=== PATIENT | female | born 1935 | race Caucasian/White ===

== ENCOUNTER 2017-06-17 11:28 | Inpatient (IN) | payer MEDICARE, SELFPAY ==
[2017-06-17] VITALS (22 sets, daily range): BP systolic 122–219; BP diastolic 2–120; PULSE 71–96; RESP 14–22; TEMP 36.1–36.8; O2SAT 94–100; BMI 28.0; BMI 28.5
--- NOTE | 2017-06-17 11:38 | RAD_ITS ---
STUDY: X-RAY CHEST REASON FOR EXAM: Female, 82 years old. Chest pain. TECHNIQUE: Single frontal view of the chest. COMPARISON: None. FINDINGS: The lungs are mildly hyperexpanded. There is no demonstrated pleural abnormality. There is borderline cardiomegaly. Normal mediastinum and lisset. Normal visualized pulmonary arteries. There is atherosclerotic calcification of the aortic arch with tortuosity. Normal visualized thoracic spine. Normal visualized ribs, clavicles, and shoulders. There is no demonstrated abnormality of the visualized soft tissue structures of the upper abdomen. RAD/Chest 1 View (Portable) IMPRESSION: Borderline cardiomegaly with hyperexpansion. No acute pathology. Electronically Signed: Bear Watson MD at 12:10 EDT , Service support ,
--- NOTE | 2017-06-17 11:38 | EKG12_ITS ---
Test Reason : STEMI Blood Pressure : / mmHG Vent. Rate : 070 BPM Atrial Rate : 070 BPM P-R Int : 158 ms QRS Dur : 078 ms QT Int : 390 ms P-R-T Axes : 082 024 098 degrees QTc Int : 421 ms Sinus rhythm with Premature atrial complexes Inferior infarct , age undetermined Abnormal ECG When compared with ECG of 17-JUN-2017 11:33, MANUAL COMPARISON REQUIRED, DATA IS UNCONFIRMED Confirmed by ALEJANDRA BRUNER, ARJUN ([id number]), industrial editor MOLLY KELLY ([id number] on 06/20/2017 1:36:57 PM Referred By: Nicki Diane Confirmed By:ARJUN ROBERTS MD
[2017-06-17] MEDS: Aspirin 81 MG TAB.CHEW 324 MG PO (11:43)
[2017-06-17] MEDS: TICAGRELOR 90 MG TABLET 180 MG PO (11:43)
[2017-06-17] MEDS: Heparin Injection 5,000 UNITS/ML Syringe 4000 UNITS IV (11:43)
[2017-06-17] MEDS: 0.9% Normal Saline 1,000 ML 150 ML IV (11:44)
--- NOTE | 2017-06-17 11:45 | ED.VISSUMM ---
- ER Visit Summary Date of Service: 06/17/17 Chief Complaint: Chest pain History of Present Illness: The patient is a 82 F who reports onset of chest pain last evening during the night. She describes it as substernal and in her back. She does not feel short of breath. She reports a history of hypertension and diabetes. Patient does admit to noncompliance with her medications. She denies prior heart attack, cath, or cardiac stents. Physical Examination: Vital signs are significant for blood pressure 170/103, otherwise unremarkable. Patient sitting upright in bed no acute distress. Head and neck examination is unremarkable. Heart is regular rate and rhythm. Lung sounds are clear. Abdomen is soft, obese, nontender. Extremity examination reveals strong distal pulses throughout. Test Results: EKG obtained upon arrival reveals acute ST elevation AR in the inferior leads with reciprocal changes in 1 and aVL. STEMI team was called at that time. CBC and chemistry studies ultimately return with a glucose of 168. She has a creatinine 1.10. Troponin is 0.37. Total chest x-ray reveals borderline cardiomegaly. Emergency Department Course and Treatment: STEMI team was called as soon as EKG was obtained. Patient was given aspirin, Brilinta, and heparin. Risks of the cardiac cath and possible stent placement were discussed with the patient and she agreed to proceed. Patient's current condition and anticipated procedure was also discussed with family members and questions were answered. Patient was discussed with Dr. Diane and taken to the cardiac Maintenance Chief. Treatment Plan: [] Disposition: Admit Impression: Acute inferior ST elevation AR This note was generated with [employer] dictation software. It may contain incorrect words, spelling, and punctuation that were not noted in review of the chart prior to signing ED Disposition - Plan for ED Patient: Disposition: Acute Care Hospital [facility] Chief Complaint: Chest Pain
[2017-06-17 11:48] LABS: Absolute Lymphocyte Count 2.49 X10^3/ul (0.83-4.51); Absolute Neutrophil Count 6.2 X10^3/uL (2.0-7.7); Basophil# 0.04 X10^3/uL; Basophil% 0.4 % (0-1); Eosinophil# 0.14 X10^3/uL; Eosinophils% 1.4 % (0-5); Hematocrit 45.3 % (37-47); Lymphocyte # 2.49 X10^3/ul (4.0); Lymphocyte % 25.7 % (19-41); Mean Corp Hgb Conc 33.1 g/gl (32-36); Mean Corpuscular Hgb 29.8 pg (27.0-32.0); Mean Corpuscular Volume 90.1 fL (81-99); Mean Platelet Vol. 9.7 fl (6.2-12.0); Monocyte# 0.78 X10^3/uL; Monocyte% 8.1 % (0-10); Neutrophil # 6.21 X10^3/uL (2.7-7.7); Neutrophil % 64.2 % (47-70); Platelet Count 222 K/mm3 (150-450); RBC Distribution Width CV 13.7 % (11.6-14.6); RBC Distribution Width SD 44.9 fl (35.1-43.9); Red Blood Count 5.03 M/mm3 (4.2-5.4); White Blood Count 9.7 K/mm3 (4.4-11.0)
[2017-06-17 11:51] LABS: POSITIVE COUNT NO; POSITIVE DIFFERENTIAL NO; POSITIVE MORPHOLOGY NO
[2017-06-17 12:04] LABS: Anion Gap 9 (5-15); BUN 20 mg/dL (7-18); BUN/Creat Ratio 18.2 RATIO (10-20); Chloride 104 mmol/L (98-107); EST Glomerular Filtration Rate 51 mL/min (>60); Est Glom Filt Rate - Afr Amer 61 mL/min (>60); Estimated Creatinine Clearance 32.26 ml/min; Glucose 168 mg/dL (74-106); Sodium Level 140 mmol/L (136-145)
--- NOTE | 2017-06-17 15:44 | ECHOCS_ITS ---
Reason For Study: STEMI Procedure This was a 2D Doppler, Color Flow transthoracic echocardiogram. The study was technically difficult. Pt scanned supine due to recent cath. Exam performed portable in ICU/CCU. Left Ventricle Normal LV size. Mild concentric left ventricular hypertrophy. Left ventricular systolic function is normal. The estimated ejection fraction is 65 %. Mild segmental systolic dysfunction (see wall motion). Transmitral diastolic flow velocities suggest mild (stage 1) diastolic dysfunction (reversed pattern). Infero-Basal: Hypokinetic. The rest of the wall segments are normal. Mitral Valve There is mild mitral annular calcification. Tricuspid Valve Normal tricuspid valve. Unable to estimate RV systolic pressure/pulmonary artery pressure due to technically difficult study. Aortic Valve Trisinus/trileaflet aortic valve. Mild (1+) eccentric aortic valve insufficiency. Pulmonic Valve The pulmonic valve is not well visualized. Great Vessels Calcified aortic root. The pulmonary artery is normal size. Normal inferior vena cava. Pericardium/Pleural No pericardial effusion. Medication Definity0.4ml given slow IV push to enhance endocardial definition. MMode/2D Measurements & Calculations LVIDd: 3.9 cm IVSd: 1.2 cm Ao root diam: 2.8 cm LVIDs: 2.3 cm LVPWd: 1.2 cm LA dimension: 2.7 cm FS: 40.9 % LAV(MOD-bp): 30.5 ml LA A4 area: 11.7 cm2 RA A4 area: 10.7 cm2 LAV(MOD-bp) Indexed: 18.0 ml/m2 LAV(MOD-sp2): 38.2 ml LAV(MOD-sp4): 22.5 ml Doppler Measurements & Calculations MV E max everton: 72.1 cm/sec Lat Peak E' Everton: 4.6 cm/sec Med Peak E' Everton: 4.4 cm/sec MV A max everton: 94.2 cm/sec E/E' lat: 15.5 E/E' med: 16.4 MV E/A: 0.76 Ao V2 max: 172.8 cm/sec LV V1 max: 112.8 cm/sec PA V2 max: 80.9 cm/sec Ao max P.9 mmHg LV V1 max P.1 mmHg Ao V2 mean: 111.8 cm/sec Ao mean P.7 mmHg Ao V2 VTI: 36.0 cm Interpretation Summary Normal LV size. Mild concentric left ventricular hypertrophy. Left ventricular systolic function is normal. The estimated ejection fraction is 65 %. Infero-Basal: Hypokinetic There is mild mitral annular calcification. Contrast injection was performed. Ordering Physician: Nicki Diane Referring Physician: Nicki Diane Performed By: Sugar Cadena RDCS, RVT
--- NOTE | 2017-06-17 15:45 | EKG12_ITS ---
Test Reason : CP Blood Pressure : / mmHG Vent. Rate : 068 BPM Atrial Rate : 068 BPM P-R Int : 000 ms QRS Dur : 080 ms QT Int : 392 ms P-R-T Axes : 000 023 104 degrees QTc Int : 416 ms Atrial fibrillation Inferior infarct , possibly acute T wave abnormality, consider lateral ischemia ACUTE SD / STEMI Consider right ventricular involvement in acute inferior infarct Abnormal ECG Confirmed by ALEJANDRA BRUNER, ARJUN ([id number]), loan expeditor MOLLY KELLY ([id number]) on 06/19/2017 1:41:09 PM Referred By: Nicki Diane Confirmed By:ARJUN ROBERTS MD
--- NOTE | 2017-06-17 15:51 | CON.PCM_ITS ---
Problem List (1) ST elevation (STEMI) myocardial infarction Status: Acute Reason for Consult Date of Consultation: 06/17/17 History of Present Illness: The patient is a 82 year old F with past medical history significant for diabetes mellitus, hypertension and dyslipidemia. She is noncompliant with her medications and does not take them. She presented to the emergency room with complaints of chest pain that started at about 1:00 in the morning. In the emergency room, an EKG was done. It shows changes consistent with an acute inferior myocardial infarction. Subsequently a STEMI alert was called Patient denies any previous history of coronary artery disease. Denies any previous history of angina. [] Past Medical History Allergies/Adverse Reactions: Allergies No Known Allergies Allergy (Verified 06/17/17 11:33) Home Medications: Ambulatory Orders Medication Instructions Recorded Allopurinol [Zyloprim] 300 mg PO DAILY PRN 06/17/17 Colesevelam HCl [Welchol] 3.75 gm PO DAILY 06/17/17 Liraglutide [Victoza] 1.8 mg SQ DAILY 06/17/17 Lisinopril [Zestril] 10 mg PO DAILY 06/17/17 Metformin(XR) [Glucophage Xr] 500 mg PO DAILY 06/17/17 Smoking Status: Never smoker Review of Systems - Review of Systems General: Denies: Fever, Fatigue, Anorexia, Weight Loss HEENT: Denies: Head Aches Cardiovascular: Reports: Chest Discomfort at Rest. Denies: Orthopnea, PND, Peripheral Edema Gastrointestinal: Denies: Abdominal Discomfort, Jaundice, Nausea, Hematemesis, Melena Neurological: Denies: History of TIA, History of CVA Endocrine: Denies: Heat Intolerance, Cold Intolerance Hematologic/ Lymphatic: Denies: Easy Brusing, Easy Bleeding Subjectve: Appeared comfortable. No apparent distress Objective: Vital Signs Temp Pulse Resp BP Pulse Ox 96.9 F L 88 17 219/97 H 97 06/17/17 11:29 06/17/17 11:45 06/17/17 11:45 06/17/17 11:45 06/17/17 11:45 General: Awake, Alert, Oriented x 3 HEENT: Atraumatic, Normocephalic Oral: Moist Mucosa Neck: Supple Lungs: Clear to auscultation Cardiovascular: Regular Rhythm, Normal S1, Normal S2 Abdomen: Bowel Sounds Present, Soft Extremities: No edema Neurological: No Focal Motor or Sensory Deficit Psych/Mental Status: Appropriate Rhythm: Normal sinus rhythm. EKG: EKG showed changes consistent with acute inferior myocardial infarction with ST elevations in inferior leads with reciprocal changes in high lateral leads ECHO: Stress Test: Cardiac Cath: PCI: CT Surgery: Holter monitor: EPS: PPM: CXR: Chest CT Scan: Assessment/Plan 1. Acute inferior myocardial infarction. Patient was advised emergent coronary angiography with possible revascularization. After obtaining informed consent, the procedure was performed. She was noted to have total occlusion of the mid right coronary artery. Heavily calcified. Also about 95% occlusion was noted in the mid left anterior descending artery. Successful percutaneous revascularization was performed. Because of the patient's anatomy, the procedure was noted to be technically very difficult. Multiple guides were tried for support. We were unable to cross with drug-eluting stents on account of her vessel tortuosity and extreme calcification. Therefore for short bare- metal stents were used which were all overlapped. Excellent results were noted with restorationist of NITHIN-3 flow 2. Patient has severe residual lesion in her mid left anterior descending artery. Heavily calcified. Also has a lesion in the obtuse marginal branch. Consider staged intervention to the LAD versus coronary artery bypass graft surgery in a staged manner. I believe she will need to have rotablation to prepare the lesion in case percutaneous intervention is opted for 3. Aspirin lifelong, Brilinta treatment for at least 4 weeks 4. Start on low-dose beta blockers, ALBERTINA inhibitors. Also start on statins. Check lipid profile 5. Diabetes management as per internal medicine 6. Patient reports noncompliance with her medications. Counseled regarding the importance of compliance with medications 7. Check a echocardiogram to evaluate left ventricular systolic function
[2017-06-17 16:35] LABS: ACT Activated Clotting Time 406 sec (74-137)
[2017-06-17 16:35] LABS: ACT Activated Clotting Time 191 sec (74-137)
[2017-06-17] MEDS: 0.9% Normal Saline 1,000 ML 100 ML IV (16:35)
--- NOTE | 2017-06-17 18:37 | PCM.HP.STD ---
Problem List (1) ST elevation (STEMI) myocardial infarction Status: Acute Qualifiers: Involved coronary artery: right coronary artery Qualified Code(s): I21.11 - ST elevation (STEMI) myocardial infarction involving right coronary artery History of Present Illness Date of Admission: 06/17/17 Chief Complaint: ST elevation CT The patient is a 82 year old F who was seen in the emergency room at [facility] with chief complaint of precordial substernal chest pressure which actually started in her mid back area and spread to her precordial substernal chest area approximately 3 AM this morning. Patient denied any radiation of the discomfort into her neck or down her arm, she did get diaphoretic and nauseated. Patient had no complaints of any shortness of breath. Patient was sleeping when the discomfort woke her up and it persisted and she came to the emergency room for evaluation. On admission to the ER, EKG revealed non-ST elevation CT involving the inferior wall leads, she was taken emergently to the Acetylene Burner and after several hours, 4 stents were put in the right coronary artery. There was also occlusive disease noted in the LAD as well as the obtuse marginal branch. These areas were not able be addressed with intervention. Patient was admitted to ICU for acute STEMI. 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 Lives: Spouse/ Significant Other Smoking Status: Never smoker Tobacco Use: Non-smoker Alcohol: None Drugs: None - *Family History Maternal History Items: Cancer - Breast cancer Paternal History Items: No pertinent history Review of Systems Constitutional: Denies: Anorexia, Chills, Fever, Night Sweats, Malaise, Weakness, Weight Change, Fatigue Eyes: Denies: Blurred vision, Cataracts, Conjunctivae Inflammation, Double vision, Drainage, Eyelid Inflammation HEENT: Denies: Difficulty Hearing, Difficulty Swallowing, Dysphasia, Ear Pain, Eye Pain, Head Aches, Hearing Changes, Nasal bleeding, Nasal Congestion Cardiovascular: Reports: Chest Pain, Chest Pressure, Chest Tightness. Denies: Claudication, Edema, Heaviness, Orthopnea, Palpitations, Paroxysmal Noc. Dyspnea, Syncope Respiratory: Denies: Cough, Hemoptysis, Pleuritic Pain, Shortness of Breath, Shortness of breath at rest, Shortness of breath upon exertion, Sputum production, Wheezing Gastrointestinal: Reports: Nausea. Denies: Abdominal Pain, Constipation, Diarrhea, Hematemesis, Hematochezia, Melena, Vomiting Genitourinary: Denies: Dysuria, Frequency, Hematuria, Hesitancy, Incontinence, Nocturia, Urgency Gynecological: Denies: Breast symptoms Musculoskeletal: Denies: Back Pain, Foot Pain, Hand Pain, Joint Pain, Joint stiffness, Joint swelling, Joint Tenderness, Leg Pain Skin: Denies: Dryness, Jaundice, Lesions, Pruritis, Rash Neurological: Denies: Balance problems, Blurred vision, Double vision, Slurred speech, Difficulty swallowing, Focal weakness, Headaches, Incoordination, Numbness, Tingling Psychiatric: Denies: Anxiety, Depression, Homicidal Ideations, Suicidal Ideations Endocrine: Denies: Change in Body Habitus, Heat/ Cold Intolerance, Polydipsia, Polyuria Hematologic/ Lymphatic: Denies: Adenopathy, Anemia, Easy Bruising, Easy Bleeding, Petechiae, Purpura VTE Information - Inpt Only VTE Present on Admission: No VTE Mechan Device Prophylaxis: None VTE Pharm Prophylaxis ordered?: No Reason prophylaxis not ordered:: Medical Contraindication Patient Problems: Active and Suspected Problems ST elevation (STEMI) myocardial infarction (Acute) - Physical Exam General: Alert, Oriented x3, Cooperative, No apparent distress, Well developed, Well nourished HEENT: Atraumatic, PERRLA, EOMI, Normocephalic Oral: Moist Mucosa Neck: Supple, No JVD, Negative Carotid Bruits, No Nuchal Rigidity, Trachea Midline, Thyroid Normal Size and Texture Lungs: Clear to auscultation, Normal air movement, No rhonchi, No wheeze, No rales Cardiovascular: Regular rate, Regular Rhythm, Normal S1, Normal S2, No murmurs, No Ectopic Activity, PMI Normal, No rub noted, No Gallop Abdomen: Bowel Sounds Present, Soft, Non Tender, Non-Distended, No hernias noted Extremities: No clubbing, No cyanosis, No edema, Capillary Refill Less than 3 Seconds Skin: No rashes, No breakdown Musculoskeletal: No Tenderness to Palpation of Joints or Extremities Neurological: Cranial nerves II-XII grossly intact, Neuro grossly intact, Muscle tone normal, Sensory exam intact to light touch and pain, Coordination normal Psych/Mental Status: Normal Affect, Appropriate, Alert and oriented to time, place, person, mood and affect Vital Signs Temp Pulse Resp BP Pulse Ox 96.9 F L 83 17 219/97 H 100 06/17/17 11:29 06/17/17 16:20 06/17/17 11:45 06/17/17 11:45 06/17/17 17:18 Oxygen Flow Rate (L/min) 2 Oxygen Delivery Method Nasal Cannula Weight: 70.7 kg Body Mass Index (BMI) 28.5 Laboratory Tests Past 24 Hrs 06/17/17 06/17/17 06/17/17 12:07 15:11 16:23 Activated Clotting Time 191 H 406 H MRSA (PCR) Pending Assessment/Plan Active and Suspected Problems ST elevation (STEMI) myocardial infarction (Acute) #[address] involving the inferior wall-patient was admitted ICU, medications were administered per cardiology orders, I placed patient on sliding scale insulin and her other medications will be held at this time-according to the patient's , she was not taking her medications as directed and the main medication she was taking was Victoza. 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
--- NOTE | 2017-06-17 18:47 | HP.PCM_ITS ---
Problem List (1) ST elevation (STEMI) myocardial infarction Status: Acute Qualifiers: Involved coronary artery: right coronary artery Qualified Code(s): I21.11 - ST elevation (STEMI) myocardial infarction involving right coronary artery History of Present Illness Date of Admission: 06/17/17 Chief Complaint: ST elevation RI The patient is a 82 year old F who was seen in the emergency room at [facility] with chief complaint of precordial substernal chest pressure which actually started in her mid back area and spread to her precordial substernal chest area approximately 3 AM this morning. Patient denied any radiation of the discomfort into her neck or down her arm, she did get diaphoretic and nauseated. Patient had no complaints of any shortness of breath. Patient was sleeping when the discomfort woke her up and it persisted and she came to the emergency room for evaluation. On admission to the ER, EKG revealed non-ST elevation RI involving the inferior wall leads, she was taken emergently to the Access Consultant and after several hours, 4 stents were put in the right coronary artery. There was also occlusive disease noted in the LAD as well as the obtuse marginal branch. These areas were not able be addressed with intervention. Patient was admitted to ICU for acute STEMI. 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 Lives: Spouse/ Significant Other Smoking Status: Never smoker Tobacco Use: Non-smoker Alcohol: None Drugs: None - *Family History Maternal History Items: Cancer - Breast cancer Paternal History Items: No pertinent history Review of Systems Constitutional: Denies: Anorexia, Chills, Fever, Night Sweats, Malaise, Weakness , Weight Change, Fatigue Eyes: Denies: Blurred vision, Cataracts, Conjunctivae Inflammation, Double vision, Drainage, Eyelid Inflammation HEENT: Denies: Difficulty Hearing, Difficulty Swallowing, Dysphasia, Ear Pain, Eye Pain, Head Aches, Hearing Changes, Nasal bleeding, Nasal Congestion Cardiovascular: Reports: Chest Pain, Chest Pressure, Chest Tightness. Denies: Claudication, Edema, Heaviness, Orthopnea, Palpitations, Paroxysmal Noc. Dyspnea , Syncope Respiratory: Denies: Cough, Hemoptysis, Pleuritic Pain, Shortness of Breath, Shortness of breath at rest, Shortness of breath upon exertion, Sputum production, Wheezing Gastrointestinal: Reports: Nausea. Denies: Abdominal Pain, Constipation, Diarrhea, Hematemesis, Hematochezia, Melena, Vomiting Genitourinary: Denies: Dysuria, Frequency, Hematuria, Hesitancy, Incontinence, Nocturia, Urgency Gynecological: Denies: Breast symptoms Musculoskeletal: Denies: Back Pain, Foot Pain, Hand Pain, Joint Pain, Joint stiffness, Joint swelling, Joint Tenderness, Leg Pain Skin: Denies: Dryness, Jaundice, Lesions, Pruritis, Rash Neurological: Denies: Balance problems, Blurred vision, Double vision, Slurred speech, Difficulty swallowing, Focal weakness, Headaches, Incoordination, Numbness, Tingling Psychiatric: Denies: Anxiety, Depression, Homicidal Ideations, Suicidal Ideations Endocrine: Denies: Change in Body Habitus, Heat/ Cold Intolerance, Polydipsia, Polyuria Hematologic/ Lymphatic: Denies: Adenopathy, Anemia, Easy Bruising, Easy Bleeding , Petechiae, Purpura VTE Information - Inpt Only VTE Present on Admission: No VTE Mechan Device Prophylaxis: None VTE Pharm Prophylaxis ordered?: No Reason prophylaxis not ordered:: Medical Contraindication Patient Problems: Active and Suspected Problems ST elevation (STEMI) myocardial infarction (Acute) - Physical Exam General: Alert, Oriented x3, Cooperative, No apparent distress, Well developed, Well nourished HEENT: Atraumatic, PERRLA, EOMI, Normocephalic Oral: Moist Mucosa Neck: Supple, No JVD, Negative Carotid Bruits, No Nuchal Rigidity, Trachea Midline, Thyroid Normal Size and Texture Lungs: Clear to auscultation, Normal air movement, No rhonchi, No wheeze, No rales Cardiovascular: Regular rate, Regular Rhythm, Normal S1, Normal S2, No murmurs, No Ectopic Activity, PMI Normal, No rub noted, No Gallop Abdomen: Bowel Sounds Present, Soft, Non Tender, Non-Distended, No hernias noted Extremities: No clubbing, No cyanosis, No edema, Capillary Refill Less than 3 Seconds Skin: No rashes, No breakdown Musculoskeletal: No Tenderness to Palpation of Joints or Extremities Neurological: Cranial nerves II-XII grossly intact, Neuro grossly intact, Muscle tone normal, Sensory exam intact to light touch and pain, Coordination normal Psych/Mental Status: Normal Affect, Appropriate, Alert and oriented to time, place, person, mood and affect Vital Signs Temp Pulse Resp BP Pulse Ox 96.9 F L 83 17 219/97 H 100 06/17/17 11:29 06/17/17 16:20 06/17/17 11:45 06/17/17 11:45 06/17/17 17:18 Oxygen Flow Rate (L/min) 2 Oxygen Delivery Method Nasal Cannula Weight: 70.7 kg Body Mass Index (BMI) 28.5 Laboratory Tests Past 24 Hrs 06/17/17 06/17/17 06/17/17 12:07 15:11 16:23 Activated Clotting Time 191 H 406 H MRSA (PCR) Pending Assessment/Plan Active and Suspected Problems ST elevation (STEMI) myocardial infarction (Acute) #[address] elevation RI involving the inferior wall-patient was admitted ICU, medications were administered per cardiology orders, I placed patient on sliding scale insulin and her other medications will be held at this time- according to the patient's , she was not taking her medications as directed and the main medication she was taking was Victoza. 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
[2017-06-17 19:13] LABS: M R Staph aureus DNA By PCR Negative (Negative); Probe Check PASS; Specimen Processing Control PASS
[2017-06-17 21:20] LABS: Bedside Glucose 253 mg/dL (70-110)
[2017-06-17] MEDS: Carvedilol 3.125 MG TABLET PO (21:20)
[2017-06-17] MEDS: TICAGRELOR 90 MG TABLET PO (21:21)
[2017-06-17] MEDS: Atorvastatin Calcium 40 MG Tablet PO (21:21)
[2017-06-18] VITALS (26 sets, daily range): BP systolic 113–155; BP diastolic 51–93; PULSE 71–91; RESP 9–20; TEMP 36.6–37; O2SAT 90–100
[2017-06-18 04:30] LABS: Hematocrit 34.3 % (37-47); Hemoglobin 11.6 g/dl (12.0-15.0); Mean Corp Hgb Conc 33.8 g/gl (32-36); Mean Corpuscular Hgb 30.4 pg (27.0-32.0); Mean Corpuscular Volume 89.8 fL (81-99); Mean Platelet Vol. 9.9 fl (6.2-12.0); Platelet Count 225 K/mm3 (150-450); RBC Distribution Width CV 13.6 % (11.6-14.6); RBC Distribution Width SD 43.7 fl (35.1-43.9); Red Blood Count 3.82 M/mm3 (4.2-5.4); White Blood Count 11.9 K/mm3 (4.4-11.0)
[2017-06-18 04:50] LABS: Scan Indicated on CBC? Y/N NO
[2017-06-18 05:37] LABS: AST(SGOT) 49 U/L (15-37); Alanine Aminotransfer ALT/SGPT 28 U/L (13-56); Albumin, Serum 3.1 g/dL (3.2-5.0); Alkaline Phosphatase 67 U/L (45-117); Anion Gap 8 (5-15); BUN 20 mg/dL (7-18); BUN/Creat Ratio 20.2 RATIO (10-20); Calcium,Total 8.3 mg/dL (8.5-10.1); Chloride 106 mmol/L (98-107); Cholesterol 162 mg/dL (200); Creatinine, Serum 0.99 mg/dL (0.55-1.02); EST Glomerular Filtration Rate 57 mL/min (>60); Est Glom Filt Rate - Afr Amer 69 mL/min (>60); Estimated Creatinine Clearance 35.85 ml/min; Globulin 3.1 g/dL (2.2-4.2); Glucose 159 mg/dL (74-106); High Density Lipoprotein 34 mg/dL; Potassium 3.6 mmol/L (3.5-5.1); Protein, Total 6.2 g/dL (6.4-8.2); Sodium Level 139 mmol/L (136-145); Triglycerides 125 mg/dL; Very Low Density Lipoprotein 25 mg/dL (5-40)
[2017-06-18 06:46] LABS: Bedside Glucose 175 mg/dL (70-110)
[2017-06-18] MEDS: TICAGRELOR 90 MG TABLET PO ×2 (08:39→22:19)
[2017-06-18] MEDS: Aspirin E.C. 81 MG Tablet PO (08:39)
[2017-06-18] MEDS: Carvedilol 3.125 MG TABLET PO ×2 (08:39→11:54)
--- NOTE | 2017-06-18 09:49 | PN.CARD_ITS ---
Subjectve: The patient was seen and evaluated and appears to be doing quite well pain-free sitting in a chair. Objective: Vital Signs Temp Pulse Resp BP Pulse Ox 98.3 F 83 18 153/67 H 96 06/18/17 07:56 06/18/17 09:00 06/18/17 09:00 06/18/17 09:00 06/18/17 09:00 Oxygen Flow Rate (L/min) 2 Oxygen Delivery Method Room Air Weight: 157 lb 10.088 oz Body Mass Index (BMI) 28.5 Intake and Output for Last 24 Hours 06/16/17 06/17/17 06/18/17 23:59 23:59 23:59 Intake Total 1353.6 / 1353.6 150 / 150 Output Total 1175 / 1175 475 / 475 Balance 178.6 / 178.6 -325 / -325 General: Awake, Alert, Oriented x 3 HEENT: PERRL, EOMI, Sclera Non Icteric Neck: Supple, Good ROM, No Lymph Node Enlargement Lungs: Clear to auscultation Cardiovascular: Regular Rhythm, Normal S1, Normal S2, No Murmurs, No Rubs, No Gallops Vascular: No Carotid Bruits, Normal Femoral Pulses, Normal Radial Pulses, Normal Dorsalis Pedal Pulse, Normal Posterior Tibial Pulses Abdomen: Bowel Sounds Present, Soft, Non Tender, No HSM, No Organomegaly Extremities: No Cyanosis, No Clubbing, No edema Neurological: No Focal Motor or Sensory Deficit 06/18/17 04:20: WBC 11.9 H, RBC 3.82 L, Hgb 11.6 L, Hct 34.3 L, MCV 89.8, MCH 30.4, MCHC 33.8, RDW 13.6, RDW Differential 43.7, Plt Count 225, MPV 9.9 06/18/17 04:20: Sodium 139, Potassium 3.6, Chloride 106, Carbon Dioxide 25.0, Anion Gap 8, BUN 20 H, Creatinine 0.99, Est GFR (MDRD) Af Amer 69, Est GFR (MDRD ) Non-Af 57 L, BUN/Creatinine Ratio 20.2 H, Glucose 159 H, Calcium 8.3 L, Total Bilirubin 0.50, Triglycerides 125, Cholesterol 162, LDL Cholesterol 103, VLDL Cholesterol 25, HDL Cholesterol 34 L Rhythm: EKG: ECHO: Stress Test: Cardiac Cath: PCI: CT Surgery: Holter monitor: EPS: PPM: CXR: Chest CT Scan: Medical Necessity - Tobacco Use Smoking Status: Never smoker Tobacco Use: Non-smoker Assessment/Plan 1. Day 1 status post acute inferior wall myocardial infarction. Patient successfully underwent angioplasty and bare-metal extensive stenting of the right coronary artery with NITHIN grade III flow. EKG appears to be much better with evolutionary changes this morning. Hemoglobin fell by more than 3 g but there is no evidence of bleeding. We will recheck in a.m. as I suspect some of the fall is from overhydration. Groin site and radial entry site all appear to be intact. Creatinine remains stable. The plan will be to keep the patient in the intensive care unit at least one more night. Aspirin Brilinta statin and beta-kartik will be continued. Above discussed with patient. Echocardiogram performed yesterday demonstrated preserved left ventricular systolic function. 2. Hypertension. Blood pressure appears to be elevated today would increase the beta-kartik to Coreg 6.25 mg twice a day in addition to the lisinopril. 3. Hyperlipidemia We will continue high intensity statin. Thank you for allowing me to participate in the care of your patient. Please don't hesitate to call if any issues arise
--- NOTE | 2017-06-18 09:50 | CASEMGMT ---
See attached RN CM assessment. patient non compliant with medications due to cost of medications. 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 States she can't afford a lot of medications. Being started on Brilinta. Attempted to call her pharmacy for a chacko on brilinta however they are closed today. Her insurance card is not scanned and she states her insurance card is in her purse which family took home. [employer] has a on-line form where you can check a copay however without her insurance RX bin and group--cannot run it. Printed multiple of her medications which are on the $4 list at [facility]. Patient needs further instruction on resources, chacko comparing and talking to [employer] for assistance for medications. Patient states that a nurse from [facility] visits them 1x a year and it is actually due. States she called to stop by a couple weeks ago however they weren't able to. Will alert case hardener for follow up tomorrow when can call pharmacy for co-pay on brilinta and regarding her insurance coverage. Angelica Aggarwal RN, CCM.
[2017-06-18 11:16] LABS: Bedside Glucose 225 mg/dL (70-110)
--- NOTE | 2017-06-18 12:11 | PCM.PROGNOTE ---
Patient Problems: Active and Suspected Problems ST elevation (STEMI) myocardial infarction (Acute) Subjective: Patient was seen and examined today in ICU, she voices no complaints of chest pain or shortness of breath. Blood pressure remains elevated, I increased her lisinopril to 10 mg daily. - Physical Exam General: Alert, Oriented x3, Cooperative, No apparent distress, Well developed, Well nourished HEENT: Atraumatic, PERRLA, EOMI, Normocephalic Oral: Moist Mucosa Neck: Supple, No JVD, No Nuchal Rigidity, Trachea Midline, Thyroid Normal Size and Texture Lungs: Clear to auscultation, Normal air movement, No rhonchi, No wheeze, No rales Cardiovascular: Regular rate, Regular Rhythm, Normal S1, Normal S2, No murmurs, No Ectopic Activity, PMI Normal, No rub noted, No Gallop Abdomen: Bowel Sounds Present, Soft, Non Tender, Non-Distended, No hernias noted Extremities: No clubbing, No cyanosis, No edema, Capillary Refill Less than 3 Seconds Skin: No rashes, No breakdown Musculoskeletal: No Tenderness to Palpation of Joints or Extremities Neurological: Cranial nerves II-XII grossly intact, Neuro grossly intact, Muscle tone normal, Sensory exam intact to light touch and pain Psych/Mental Status: Normal Affect, Appropriate, Alert and oriented to time, place, person, mood and affect Vital Signs Temp Pulse Resp BP Pulse Ox 98.3 F 71 16 143/66 H 97 06/18/17 07:56 06/18/17 11:00 06/18/17 11:00 06/18/17 11:00 06/18/17 11:00 Oxygen Flow Rate (L/min) 2 Oxygen Delivery Method Room Air Weight: 71.5 kg Body Mass Index (BMI) 28.5 Intake and Output for Last 24 Hours 06/16/17 06/17/17 06/18/17 23:59 23:59 23:59 Intake Total 1353.6 / 1353.6 500 / 500 Output Total 1175 / 1175 925 / 925 Balance 178.6 / 178.6 -425 / -425 Laboratory Tests Past 24 Hrs 06/17/17 06/17/17 06/17/17 12:07 15:11 16:23 WBC RBC Hgb Hct MCV MCH MCHC RDW RDW Differential Plt Count MPV Activated Clotting Time 191 H 406 H Sodium Potassium Chloride Carbon Dioxide Anion Gap BUN Creatinine Estim Creat Clear Calc Est GFR (MDRD) Af Amer Est GFR (MDRD) Non-Af BUN/Creatinine Ratio Glucose Calcium Total Bilirubin AST ALT Alkaline Phosphatase Total Protein Albumin Globulin Albumin/Globulin Ratio Triglycerides Cholesterol LDL Cholesterol VLDL Cholesterol HDL Cholesterol MRSA (PCR) Negative 06/18/17 06/18/17 04:20 04:20 WBC 11.9 H RBC 3.82 L Hgb 11.6 L Hct 34.3 L MCV 89.8 MCH 30.4 MCHC 33.8 RDW 13.6 RDW Differential 43.7 Plt Count 225 MPV 9.9 Activated Clotting Time Sodium 139 Potassium 3.6 Chloride 106 Carbon Dioxide 25.0 Anion Gap 8 BUN 20 H Creatinine 0.99 Estim Creat Clear Calc 35.85 Est GFR (MDRD) Af Amer 69 Est GFR (MDRD) Non-Af 57 L BUN/Creatinine Ratio 20.2 H Glucose 159 H Calcium 8.3 L Total Bilirubin 0.50 AST 49 H ALT 28 Alkaline Phosphatase 67 Total Protein 6.2 L Albumin 3.1 L Globulin 3.1 Albumin/Globulin Ratio 1.0 Triglycerides 125 Cholesterol 162 LDL Cholesterol 103 VLDL Cholesterol 25 HDL Cholesterol 34 L MRSA (PCR) POC Glucose 06/18/17 06/18/17 06/17/17 11:12 06:35 21:14 POC Glucose 225 H 175 H 253 H Medical Necessity - Tobacco Use Smoking Status: Never smoker Tobacco Use: Non-smoker Assessment/Plan Active and Suspected Problems ST elevation (STEMI) myocardial infarction (Acute) #[address] elevation [place] involving the inferior wall-continue treatment per cardiology #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
--- NOTE | 2017-06-18 15:45 | EKG12_ITS ---
Test Reason : AM EKG Blood Pressure : / mmHG Vent. Rate : 079 BPM Atrial Rate : 079 BPM P-R Int : 164 ms QRS Dur : 082 ms QT Int : 380 ms P-R-T Axes : 078 -11 110 degrees QTc Int : 435 ms Normal sinus rhythm Inferior infarct , age undetermined ST & T wave abnormality, consider lateral ischemia Abnormal ECG When compared with ECG of 17-JUN-2017 16:12, MANUAL COMPARISON REQUIRED, DATA IS UNCONFIRMED Confirmed by ALEJANDRA BRUNER, ARJUN ([id number]), publication editor MOLLY KELLY ([id number]) on 06/20/2017 1:37:14 PM Referred By: Nicki Diane Confirmed By:ARJUN ROBERTS MD
[2017-06-18 17:25] LABS: Bedside Glucose 153 mg/dL (70-110)
[2017-06-18] MEDS: Lisinopril 5 MG Tablet PO (17:50)
[2017-06-18] MEDS: Atorvastatin Calcium 40 MG Tablet PO (22:19)
[2017-06-18] MEDS: Carvedilol 6.25 MG Tablet PO (22:21)
[2017-06-18 22:30] LABS: Bedside Glucose 170 mg/dL (70-110)
[2017-06-19] VITALS (18 sets, daily range): BP systolic 94–139; BP diastolic 47–82; PULSE 65–81; RESP 10–18; TEMP 36.8–37.1; O2SAT 94–99; BMI 28.1
[2017-06-19] MEDS: Acetaminophen 325 MG Tablet 650 MG PO (02:17)
--- NOTE | 2017-06-19 02:24 | NURSING ---
Pt was having some discomfort in her back, this is initially how she felt when she had her MT so we obtained an EKG at this time, the EKG looked better than her three previous EKG's. At this time we repositioned the pt and offered her tylenol for her discomfort. Pt states she will try the tylenol and agreed to repositioning. Appears to be more comfortable and resting easily. Will re-evaluate within 1 hour.
--- NOTE | 2017-06-19 05:55 | EKG12_ITS ---
Test Reason : CHEST PAIN Blood Pressure : / mmHG Vent. Rate : 079 BPM Atrial Rate : 079 BPM P-R Int : 168 ms QRS Dur : 088 ms QT Int : 360 ms P-R-T Axes : 083 002 105 degrees QTc Int : 412 ms Normal sinus rhythm Inferior infarct , age undetermined Abnormal ECG No previous ECGs available Confirmed by ALEJANDRA BRUNER, ARJUN ([id number]), greeting card editor MOLLY KELLY ([id number]) on 06/29/2017 2:24:54 PM Referred By: Nicki Diane Confirmed By:ARJUN ROBERTS MD
--- NOTE | 2017-06-19 06:49 | PCM.PN.CARD ---
Subjectve: Patient seen and evaluated and appears to be doing well had uneventful night Objective: Vital Signs Temp Pulse Resp BP Pulse Ox 98.6 F 73 14 115/57 L 94 06/19/17 02:00 06/19/17 06:00 06/19/17 06:00 06/19/17 06:00 06/19/17 06:00 Oxygen Flow Rate (L/min) 2 Oxygen Delivery Method Room Air Weight: 154 lb 15.759 oz Body Mass Index (BMI) 28.5 Intake and Output for Last 24 Hours 06/17/17 06/18/17 06/19/17 23:59 23:59 23:59 Intake Total 1353.6 / 1353.6 1225 / 1225 200 / 200 Output Total 1175 / 1175 1825 / 1825 250 / 250 Balance 178.6 / 178.6 -600 / -600 -50 / -50 General: Awake, Alert, Oriented x 3 HEENT: PERRL, EOMI, Sclera Non Icteric Neck: Supple, Good ROM, No Lymph Node Enlargement Lungs: Clear to auscultation Cardiovascular: Regular Rhythm, Normal S1, Normal S2, No Murmurs, No Rubs, No Gallops Vascular: No Carotid Bruits, Normal Femoral Pulses, Normal Radial Pulses, Normal Dorsalis Pedal Pulse, Normal Posterior Tibial Pulses Abdomen: Bowel Sounds Present, Soft, Non Tender, No HSM, No Organomegaly Extremities: No Cyanosis, No Clubbing, No edema Neurological: No Focal Motor or Sensory Deficit Rhythm: EKG: Normal sinus rhythm with inferior infarct Medical Necessity - Tobacco Use Smoking Status: Never smoker Tobacco Use: Non-smoker Assessment/Plan 1. Day 2 status post acute inferior wall myocardial infarction. Patient successfully underwent angioplasty and bare-metal extensive stenting of the right coronary artery with NITHIN grade III flow. EKG appears to be much better with evolutionary changes this morning. Hemoglobin fell by more than 3 g but there is no evidence of bleeding. We will recheck in a.m. as I suspect some of the fall is from overhydration. Groin site and radial entry site all appear to be intact. Creatinine remains stable. The plan will be to keep the patient in the intensive care unit at least one more night. Aspirin Brilinta statin and beta-kartik will be continued. Above discussed with patient. Echocardiogram performed yesterday demonstrated preserved left ventricular systolic function. 2. Hypertension. Blood pressure appears to be elevated today would continue the beta-kartik to Coreg 6.25 mg twice a day in addition to the lisinopril. 3. Hyperlipidemia We will continue high intensity statin. Stable for transfer out of the intensive care unit to the progressive care unit. Thank you for allowing me to participate in the care of your patient. Please don't hesitate to call if any issues arise
[2017-06-19 06:55] LABS: Bedside Glucose 184 mg/dL (70-110)
[2017-06-19] MEDS: Aspirin E.C. 81 MG Tablet PO (08:10)
[2017-06-19] MEDS: Lisinopril 5 MG Tablet PO (08:11)
[2017-06-19] MEDS: TICAGRELOR 90 MG TABLET PO ×2 (08:14→22:14)
[2017-06-19] MEDS: Carvedilol 6.25 MG Tablet PO ×2 (08:14→22:13)
--- NOTE | 2017-06-19 08:48 | CRPHASE1 ---
Patient Data/Charges Manager Internship:: Nicki Diane Refer Phase II:: Yes Phase II Referral:: [facility] Start Phase II:: After follow up visit with Cardiology Phase I Charge:: Level I - Education Risk Factors/Lifestyle Smoking Status: Former smoker - States smoked some in her younger days. Hx Hypertension: Yes Hx Diabetes Mellitus Type 2: Yes Height: 1.57 m Weight:: 69.853 kg BMI: 28.1 Post-Menopausal: Yes Risk Factor for Sedentary Lifestyle: Highest Risk - States is not working out at home prior to admission. Family History: Cancer - breast cancer., Heart Disease - Her dad had [place] age 47. Laboratory Values: Cardiac Rehab Phase I Labs Triglycerides 125 mg/dL (-199) 06/18/17 04:20 Cholesterol 162 mg/dL (200) 06/18/17 04:20 LDL Cholesterol 103 mg/dL (0-130) 06/18/17 04:20 HDL Cholesterol 34 mg/dL (40-) L 06/18/17 04:20 Phase I Education Given On:: [place], Nutrition, Antiplatelet medication, CHF, Smoking cessation, Diabetes - Type II Issues Affecting Care:: None Knowledge of Condition:: Yes Learning Preferences: Verbal, Written, Audio/Visual, Demonstration Hospital Course Presenting Symptoms:: Midsternal chest pain Medical/Surgical History Diabetes Type II:: Yes Hypertension:: Yes Dyslipidemia:: Yes
--- NOTE | 2017-06-19 08:54 | CRPHASE1_ITS ---
Patient Data/Charges Slot Machine Key Person:: Nicki Diane Refer Phase II:: Yes Phase II Referral:: [facility] Start Phase II:: After follow up visit with Cardiology Phase I Charge:: Level I - Education Risk Factors/Lifestyle Smoking Status: Former smoker - States smoked some in her younger days. Hx Hypertension: Yes Hx Diabetes Mellitus Type 2: Yes Height: 1.57 m Weight:: 69.853 kg BMI: 28.1 Post-Menopausal: Yes Risk Factor for Sedentary Lifestyle: Highest Risk - States is not working out at home prior to admission. Family History: Cancer - breast cancer., Heart Disease - Her dad had [place] age 47. Laboratory Values: Cardiac Rehab Phase I Labs Triglycerides 125 mg/dL (-199) 06/18/17 04:20 Cholesterol 162 mg/dL (200) 06/18/17 04:20 LDL Cholesterol 103 mg/dL (0-130) 06/18/17 04:20 HDL Cholesterol 34 mg/dL (40-) L 06/18/17 04:20 Phase I Education Given On:: [place], Nutrition, Antiplatelet medication, CHF, Smoking cessation, Diabetes - Type II Issues Affecting Care:: None Knowledge of Condition:: Yes Learning Preferences: Verbal, Written, Audio/Visual, Demonstration Hospital Course Presenting Symptoms:: Midsternal chest pain Medical/Surgical History Diabetes Type II:: Yes Hypertension:: Yes Dyslipidemia:: Yes
--- NOTE | 2017-06-19 08:54 | CRPH1.INSTRU ---
General Education CAD and cardiac anatomy and function:: Patient communicates acknowledgment, Needs reinforcement Explanation of diagnoses and procedures:: Patient communicates acknowledgment, Needs reinforcement Sign/Symptoms of MD:: Patient communicates acknowledgment, Needs reinforcement Antiplatelet therapy: Patient communicates acknowledgment, Needs reinforcement Proper use of NTG-SL: Patient communicates acknowledgment, Needs reinforcement Emergency procedures and activation of EMS: Patient communicates acknowledgment, Needs reinforcement Compliance of all prescribed medications: Patient communicates acknowledgment, Needs reinforcement Smoking Patient Nicotine/Smoking Risk Factors Are:: Non-smoker Recommendations Include:: Previous smoker; encourage continued cessation Nicotine/Smoking Response Code:: Patient communicates acknowledgment, Patient returns demonstration Dyslipidemia Patient Dyslipidemia Risk Factors Are:: Total Cholesterol, Triglycerides, HDL, LDL Recommendations Include:: Lipid profile provided, Reviewed NCEP/ATP guidelines, Therapeutic Lifestyle Change dietary guidelines Dyslipidemia Response Code:: Patient communicates acknowledgment, Needs reinforcement Overweight/Obesity Patient Overweight/Obesity Risk Factors Are:: BMI Normal [24-29 & > 65 years old] Recommendations Include:: Exercise 5-7 times/week Overweight/Obesity:: Patient communicates acknowledgment, Needs reinforcement Hypertension Recommendations Include:: BP <130/80 if diabetic, DASH dietary guidelines, Decrease/maintain normal body weight Hypertension:: Patient communicates acknowledgment, Needs reinforcement Heart Disease Patient Heart Disease Risk Factors Are:: Family history of heart disease < 65 years old Recommendations Include:: Educated family members of their risk, Educated family members of importance of prevention of heart disease Heart Disease Response Code:: Patient communicates acknowledgment, Needs reinforcement Diabetes Recommendations Include:: Maintain fasting blood sugars 70-110 md/dL, Maintain HgbA1c of 6% or less, Monitor blood sugar as prescribed, Diabetic dietary guidelines Diabetes:: Patient communicates acknowledgment, Needs reinforcement Metabolic Syndrome Metabolic Syndrome Response Code:: Not instructed Sedentary Patient Sedentary Risk Factors Are:: Lack of regular exercise Recommendations Include:: Aerobic exercise 5-7 times/week for 20-30 minutes continuously, Benefits of regular exercise, Discussed home walking program, Monitored Outpatient Cardiac Rehab Sedentary Response Code:: Patient communicates acknowledgment, Needs reinforcement Stress Patient Stress Risk Factors Are:: Patient denies stress as a risk factor Stress Response Code:: Patient communicates acknowledgment, Patient returns demonstration
--- NOTE | 2017-06-19 08:57 | CRPH1.INST_ITS ---
General Education CAD and cardiac anatomy and function:: Patient communicates acknowledgment, Needs reinforcement Explanation of diagnoses and procedures:: Patient communicates acknowledgment, Needs reinforcement Sign/Symptoms of ND:: Patient communicates acknowledgment, Needs reinforcement Antiplatelet therapy: Patient communicates acknowledgment, Needs reinforcement Proper use of NTG-SL: Patient communicates acknowledgment, Needs reinforcement Emergency procedures and activation of EMS: Patient communicates acknowledgment , Needs reinforcement Compliance of all prescribed medications: Patient communicates acknowledgment, Needs reinforcement Smoking Patient Nicotine/Smoking Risk Factors Are:: Non-smoker Recommendations Include:: Previous smoker; encourage continued cessation Nicotine/Smoking Response Code:: Patient communicates acknowledgment, Patient returns demonstration Dyslipidemia Patient Dyslipidemia Risk Factors Are:: Total Cholesterol, Triglycerides, HDL, LDL Recommendations Include:: Lipid profile provided, Reviewed NCEP/ATP guidelines, Therapeutic Lifestyle Change dietary guidelines Dyslipidemia Response Code:: Patient communicates acknowledgment, Needs reinforcement Overweight/Obesity Patient Overweight/Obesity Risk Factors Are:: BMI Normal [24-29 & > 65 years old ] Recommendations Include:: Exercise 5-7 times/week Overweight/Obesity:: Patient communicates acknowledgment, Needs reinforcement Hypertension Recommendations Include:: BP <130/80 if diabetic, DASH dietary guidelines, Decrease/maintain normal body weight Hypertension:: Patient communicates acknowledgment, Needs reinforcement Heart Disease Patient Heart Disease Risk Factors Are:: Family history of heart disease < 65 years old Recommendations Include:: Educated family members of their risk, Educated family members of importance of prevention of heart disease Heart Disease Response Code:: Patient communicates acknowledgment, Needs reinforcement Diabetes Recommendations Include:: Maintain fasting blood sugars 70-110 md/dL, Maintain HgbA1c of 6% or less, Monitor blood sugar as prescribed, Diabetic dietary guidelines Diabetes:: Patient communicates acknowledgment, Needs reinforcement Metabolic Syndrome Metabolic Syndrome Response Code:: Not instructed Sedentary Patient Sedentary Risk Factors Are:: Lack of regular exercise Recommendations Include:: Aerobic exercise 5-7 times/week for 20-30 minutes continuously, Benefits of regular exercise, Discussed home walking program, Monitored Outpatient Cardiac Rehab Sedentary Response Code:: Patient communicates acknowledgment, Needs reinforcement Stress Patient Stress Risk Factors Are:: Patient denies stress as a risk factor Stress Response Code:: Patient communicates acknowledgment, Patient returns demonstration
--- NOTE | 2017-06-19 10:09 | PN_ITS ---
Patient Problems: Active and Suspected Problems ST elevation (STEMI) myocardial infarction (Acute) Subjective: CC: f/u on acute ST elevation [place] Objective: She reports no chest pain shortness of breath or palpitations. No acute events reported overnight. Vitals/I&O's: Vital Signs Temp Pulse Resp BP Pulse Ox 98.2 F 77 16 114/64 98 06/19/17 08:00 06/19/17 09:00 06/19/17 09:00 06/19/17 09:00 06/19/17 09:00 Oxygen Flow Rate (L/min) 2 Oxygen Delivery Method Room Air Weight: 69.853 kg Body Mass Index (BMI) 28.5 Intake and Output for Last 24 Hours 06/17/17 06/18/17 06/19/17 23:59 23:59 23:59 Intake Total 1353.6 / 1353.6 1225 / 1225 680 / 680 Output Total 1175 / 1175 1825 / 1825 250 / 250 Balance 178.6 / 178.6 -600 / -600 430 / 430 General: Alert, Oriented x3 HEENT: Atraumatic Oral: Moist Mucosa Neck: Supple, No JVD Lungs: Clear to auscultation, Normal air movement Cardiovascular: Regular rate, Normal S1, Normal S2 Abdomen: Bowel Sounds Present, Non Tender Laboratory Results 06/18/17 11:12: POC Glucose 225 H 06/18/17 16:46: POC Glucose 153 H 06/18/17 22:18: POC Glucose 170 H 06/19/17 06:17: POC Glucose 184 H Current Medications Acetaminophen (Tylenol) 650 mg PO Q6H PRN PRN PRN Reason: Mild Pain (1-3)/Temp > 100.7 F Last Admin: 06/19/17 02:17 Dose: 650 mg Aspirin (Ecotrin) 81 mg PO DAILY@0800 [facility] Last Admin: 06/19/17 08:10 Dose: 81 mg Atorvastatin Calcium (Lipitor) 40 mg PO QHS [facility] Last Admin: 06/18/17 22:19 Dose: 40 mg Atropine Sulfate () 0.5 mg IV UD PRN PRN Reason: HR <50 bpm Carvedilol (Coreg) 6.25 mg PO BID [facility] Last Admin: 06/19/17 08:14 Dose: 6.25 mg Dextrose (D50w Syringe) 0 gm IV X1 PRN; Protocol PRN Reason: Hypoglycemia Glucagon () 1 mg IM .X1 PRN PRN Reason: Hypoglycemia Insulin Aspart (Novolog Flexpen (Bkc)) 0 units SC ACHS GENET PRN Reason: Protocol Last Admin: 06/19/17 06:18 Dose: 1 u Lisinopril (Zestril) 5 mg PO DAILY [facility] Last Admin: 06/19/17 08:11 Dose: 5 mg Nitroglycerin (Nitrostat) 0.4 mg SUBLINGUAL Q5M PRN PRN Reason: CARDIAC/CHEST PAIN Sodium Chloride () 500 ml IV BOLUS PRN PRN Reason: VASO-VAGAL PROTOCOL Sodium Chloride () 5 - 30 ml IV UD PRN PRN Reason: SALINE FLUSH Ticagrelor (Brilinta) 90 mg PO BID [facility] Last Admin: 06/19/17 08:14 Dose: 90 mg Medical Necessity - Tobacco Use Smoking Status: Former smoker - States smoked some in her younger days. Tobacco Use: Non-smoker Assessment/Plan Active and Suspected Problems ST elevation (STEMI) myocardial infarction (Acute) [address] elevation [place] involving the inferior wall; continue on guideline directed medical therapy. 2 occlusive coronary disease in the LAD and obtuse marginal branch; she will follow-up with cardiology for further management. 3 type 2 diabetes; insulin sliding scale. 4. Anemia we will continue on her statin. 5. Early ambulation for DVT prophylaxis Code Visit Inpatient E&M: 93410 Subs Hosp L2
--- NOTE | 2017-06-19 10:30 | CL.I_ITS ---
Patient Name: GIOVANY BRANHAM Study Date: 06/17/2017 Performing: Nicki Diane MD Ht: 62 inches 157 cm : 1935 Wt: 154.5 lbs 70 kg Age: 82 Gender: female BSA: 1.71 PROCEDURE(S) PERFORMED OX25-ATS, BMS AND/OR PTCA ARTERY OR GRAFT SINGLE VESSEL EB26-PIO/COR CLINICAL PROFILE AND CO-MORBIDITIES HEART FAILURE: None CAD Presentations: STEMI. Symptom onset Date/Time: 06/17/2017 01:00:00 Time Estimated CONCLUSIONS 95% Mid LAD 95% Prox OM1 RECOMMENDATIONS ASA Indefinitley Brilinta for at least 3 months Staged PCI vs CABG to LAD DESCRIPTION OF PROCEDURE The patient arrived to the procedure lab. The risks and benefits of the procedure as well as a full d escription of our services here and lack of surgical backup were fully explained to the patient and/o r their significant other prior to the catheterization. The Timeout was completed, verifying the bryant ect patient and procedure. The patient's procedural site was prepped and draped in the usual fashion. Local anesthetic was given subcutaneously to right radial region with Lidocaine 2%. Local anesthetic was given subcutaneously to right groin region with Lidocaine 2%. Using a modified Seldinger techniq ue, arterial access was obtained via the right radial artery, a 6Fr sheath was inserted., arterial ac cess was obtained via the right femoral artery, a 6Fr sheath was inserted.. Left Coronary Artery kayla ective angiography was performed in multiple views using a 5 Fr. 4.0 [place] catheter. Right Coronary A rtery selective angiography was then performed in multiple views using a 5 Fr. 4.0 [place] catheterThe images were reviewed and options discussed. A decision was then made to proceed with an Intervention, IVUS or other adjunct procedure. Angiogram performed pre balloon dilatation. runthrough Guide wire was advanced to the RCA. al 0.75 Gu mo catheter was inserted and engaged into the RCA. Guide wire was exchanged for a whisper ms 0.014 A ngiogram performed pre balloon dilatation. emerge 2.00 x 15 Balloon catheter was advanced across lesi on in the right coronary, mid. PTCA balloon inflated at 6 atms for 6 secs Angiogram performed post ba lloon dilatation. emerge push 1.5 x 15 Balloon catheter was advanced across lesion in the right coron jalen, mid. PTCA balloon inflated at 10 atms for 14 secs PTCA balloon inflated at 14 atms for 17 secs A ngiogram performed post balloon dilatation. emerge 2.00 x 15 Balloon catheter was advanced across les ion in the right coronary, mid. PTCA balloon inflated at 14 atms for 14 secs PTCA balloon inflated at 14 atms for 17 secs PTCA balloon inflated at 14 atms for 14 secs PTCA balloon inflated at 14 atms fo r 12 secs PTCA balloon inflated at 14 atms for 12 secs elunir 3.5 x 33 Drug Eluting stent was removed intact, failed to cross lesion emerge 2.5 x 20 Balloon catheter was advanced across lesion in the ri ght coronary, mid. PTCA balloon inflated at 8 atms for 16 secs PTCA balloon inflated at 8 atms for 17 secs PTCA balloon inflated at 8 atms for 16 secs PTCA balloon inflated at 10 atms for 16 secs PTCA b alloon inflated at 12 atms for 19 secs Angiogram performed post balloon dilatation. choice floppy Booker de wire was inserted as a atif wire elunir 2.5 x 33 Drug Eluting stent was advanced across the lesio n in the right coronary, mid. Drug Eluting stent was removed intact, failed to cross lesion resolute integrity 2.25 x 30 Drug Eluting stent was removed intact, failed to cross lesion nc emerge 2.5 x 20 Balloon catheter was advanced across lesion in the right coronary, mid. 6 fr guide liner Guide cathet er was inserted and engaged into the RCA. choice floppy Guide wire was advanced to the RCA. 2.25 x 30 resolute Drug Eluting stent was removed intact, failed to cross lesion 2.25 x 33 elunir Drug Eluting stent was removed intact, failed to cross lesion al 1.0 Guide catheter was inserted and engaged into the RCA. integrity 2.25 x 22 Bare Metal stent was removed with stent intact, failed to cross lesion Post stent, balloon catheter was inserted nc emerge 2.5 x 20 Guide catheter was exchanged for a hs 1 with side holes Guide catheter was exchanged for a al 0.75 Guide wire was exchanged for a runthrough al 0.75 Guide catheter was inserted and engaged into the RCA. runthrough wire Guide wire was advanced to the RCA. hs 1 with side holes Guide catheter was inserted and engaged into the RCA. Guide cathete r was exchanged for a jr 4 Guide catheter was exchanged for a ikari right 1.5 integrity 2.25 x 22 Bar e Metal stent was removed with stent intact, failed to cross lesion emerge 2.5 x 20 Balloon catheter was advanced across lesion in the right coronary, mid. PTCA balloon inflated at 8 atms for 5 secs PTC A balloon inflated at 10 atms for 4 secs integrity 2.25 x 18 Bare Metal stent was advanced across the lesion in the right coronary, mid. integrity 2.25 x 14 Bare Metal stent was advanced across the lesi on in the right coronary, mid. integrity 2.25 x 18 Bare Metal stent was removed with stent intact, fa iled to cross lesion Angiogram performed post stent deployment. Guide catheter was exchanged for a im a 90 cm runthrough Guide wire was advanced to the RCA. 2.25 x 12 integrity Bare Metal stent was advan ahsan across the lesion in the right coronary, mid. integrity 2.5 x 18 Bare Metal stent was removed wit h stent intact, failed to cross lesion rebel 2.50 x 16 Bare Metal stent was advanced across the lesio n in the right coronary, mid. Angiogram performed post stent deployment. nc emerge 2.50 x 12 Balloon catheter was inserted post stent. Post stent, balloon catheter was inserted nc emerge 3.00 x 8 Angiog vesna performed post balloon dilatation.. . The arterial sheath was pulled and a TR Band was applied f or hemostasis. 18 cc of air in TR band. The arterial sheath was pulled and a Perclose closure device was deployed for hemostasis. CORONARY ANGIOGRAPHY DOMINANCE: Right Dominant LEFT MAIN: Mild luminal irregularities LEFT ANTERIOR DECENDING ARTERY: 50% Proximal, 95% mid, calcified CIRCUMFLEX ARTERY: 60% Mid. 95% Prox OM1 RIGHT CORONARY ARTERY: 60% Prx, 100% Mid, heavily calcific INTERVENTION INFORMATION LESION SITE: RCA (Mid) Lesion Complexity: High/C, culprit lesion: Yes Pre Stenosis: 100 % Pre intervention NITHIN flow: 0 PROCEDURE: Bare Metal Stent with pre and post dilatation. Post Stenosis: 0 % Post intervention NITHIN flow: 3 Lesion Devices: Medtronic 6 Fr AL.75 100cm Guide Catheter Medtronic 6 Fr JR4.0 100cm Guide Catheter Terumo .014 Runthrough Extra Floppy 180cm straight Michael Sci EMERGE MR 2.00x15 BALLOON Henning .014 HT Whisper MS Straight 190cm Michael Sci EMERGE PUSH MR 1.50x15 BALLOON Cardinal Elunir TIARA RX 2.5x33 Michael Sci EMERGE MR 2.50x20 BALLOON Michael Sci .014 Choice Floppy Wire 182cm Medtronic Resolute RX TIARA 2.25x30 Michael Sci NC EMERGE MR 2.50x20 BALLOON Vascular Solutions 6 Welsh GuideLiner Medtronic 6 Fr AL.75 100cm Guide Catheter Medtronic 6 Fr AL1.0 100cm Guide Catheter Medtronic Integrity RX BMS 2.25x22 Michael Sci NC EMERGE MR 2.50x20 BALLOON Michael Sci EMERGE MR 2.50x20 BALLOON Medtronic 6 Fr HSI SH 100cm Guide Catheter Medtronic 6 Fr AL.75 100cm Guide Catheter Medtronic 6 Fr JR4.0 100cm Guide Catheter Terumo 6 Fr Ikari Right 1.5 100cm Guide Catheter Medtronic Integrity RX BMS 2.25x18 Medtronic Integrity RX BMS 2.25x14 Medtronic Integrity RX BMS 2.25x12 Michael Sci EMERGE MR 2.50x20 BALLOON Medtronic 6 Fr COCO 90cm Guide Catheter Medtronic Integrity RX BMS 2.5x18 Michael Sci Rebel MR BMS 2.50x16 Michael Sci NC EMERGE MR 3.00x08 BALLOON Michael Sci NC EMERGE MR 2.50x12 BALLOON COMPLICATIONS No Complications PROCEDURE MEDICATIONS Versed 1 mg IV Fentanyl 50 mcg IV Fentanyl 25 mcg IV Oxygen: 2 L/min via nasal cannula Angiomax Bolus 10.5 ml's 06/17/2017 12:25:30 Angiomax 5mg / ml @ 24.5 ml/hr IV started @ 06/17/2017 12:25:54 Nitro glycerin 25mg / 250ml D5W @ 20 mcg/min IV started 06/17/2017 12:47:51 Nitro 200 mcg IC 06/17/2017 12:49:14 Verapamil 2.5mg, Ntg 100mcgs, given IA 06/17/2017 12:09:26 Zofran 4 mg IV 06/17/2017 12:17:43 IV Bolus: .9 NaCl 500 ml total 06/17/2017 14:07:35 IV Fluids: .9 NaCl IV started @ 75 ml/hr 06/17/2017 14:07:46 SUMMARY OF HEMODYNAMIC DATA Time AIR REST ECG 11:58:15 AO 168/80 (116) SA 12:08:15 Signed By Nicki Diane MD On 06/19/2017 10:29:24 Nicki Diane MD
[2017-06-19] MEDS: 0.9% NaCl Peripheral Flush Adult/Peds IV (10:52)
--- NOTE | 2017-06-19 11:13 | NURSING ---
reviewed Michael Wood charting and agree with assessment findings
[2017-06-19 11:35] LABS: Bedside Glucose 253 mg/dL (70-110)
--- NOTE | 2017-06-19 12:04 | CASEMGMT ---
[facility] pharmacy rep states monthly cost of Brilinta will be $47.00.
--- NOTE | 2017-06-19 12:19 | NURSING ---
Report given to MOO Molina at 1055. Patient transferred to PCU bed 118
[2017-06-19 16:56] LABS: Bedside Glucose 210 mg/dL (70-110)
[2017-06-19] MEDS: Atorvastatin Calcium 40 MG Tablet PO (22:13)
[2017-06-19 22:21] LABS: Bedside Glucose 228 mg/dL (70-110)
[2017-06-20 02:43] VITALS: BP 138/68; PULSE 73; RESP 20; TEMP 36.8; O2SAT 97
[2017-06-20 03:00] VITALS: PULSE 68
--- NOTE | 2017-06-20 05:55 | EKG12_ITS ---
Test Reason : Blood Pressure : / mmHG Vent. Rate : 073 BPM Atrial Rate : 073 BPM P-R Int : 174 ms QRS Dur : 082 ms QT Int : 368 ms P-R-T Axes : 087 016 100 degrees QTc Int : 405 ms Normal sinus rhythm Normal ECG When compared with ECG of 18-JUN-2017 05:08, MANUAL COMPARISON REQUIRED, DATA IS UNCONFIRMED Confirmed by ALEJANDRA BRUNER, ARJUN ([id number]), supervising editor trailer MOLLY KELLY ([id number]) on 06/23/2017 1:08:50 PM Referred By: Nicki Diane Confirmed By:ARJUN ROBERTS MD
[2017-06-20 06:56] LABS: Bedside Glucose 218 mg/dL (70-110)
[2017-06-20 07:12] VITALS: PULSE 72
--- NOTE | 2017-06-20 07:37 | PCM.PN.CARD ---
Subjectve: The patient was seen and evaluated. Appears to be doing well has not had any further chest pain. Has been walking around her room. Objective: Vital Signs Temp Pulse Resp BP Pulse Ox 98.3 F 68 20 H 138/68 H 97 06/20/17 02:43 06/20/17 03:00 06/20/17 02:43 06/20/17 02:43 06/20/17 02:43 Oxygen Flow Rate (L/min) 2 Oxygen Delivery Method Room Air Weight: 151 lb 14.376 oz Body Mass Index (BMI) 28.5 Intake and Output for Last 24 Hours 06/18/17 06/19/17 06/20/17 23:59 23:59 23:59 Intake Total 1225 / 1225 680 / 680 Output Total 1825 / 1825 1050 / 1050 200 / 200 Balance -600 / -600 -370 / -370 -200 / -200 General: Awake, Alert, Oriented x 3 HEENT: PERRL, EOMI, Sclera Non Icteric Neck: Supple, Good ROM, No Lymph Node Enlargement Lungs: Clear to auscultation Cardiovascular: Regular Rhythm, Normal S1, Normal S2, No Murmurs, No Rubs, No Gallops Rhythm: EKG: ECHO: Stress Test: Cardiac Cath: PCI: CT Surgery: Holter monitor: EPS: PPM: CXR: Chest CT Scan: Medical Necessity - Tobacco Use Smoking Status: Former smoker - States smoked some in her younger days. Tobacco Use: Non-smoker Assessment/Plan 1. Day 3 status post acute inferior wall myocardial infarction. Patient successfully underwent angioplasty and bare-metal extensive stenting of the right coronary artery with NITHIN grade III flow. EKG appears to be much better with evolutionary changes this morning. Hemoglobin and creatinine remained stable without any major changes. No evidence of bleeding noted and most likely secondary to hemodilution. Patient does have residual disease noted in the left anterior descending artery and the circumflex artery which would be evaluated as an outpatient. A surgical consultation would be considered. 2. Hypertension. Blood pressure appears to be elevated today would continue the beta-kartik to Coreg 6.25 mg twice a day in addition to the lisinopril. 3. Hyperlipidemia We will continue high intensity statin. Stable to be discharged home today on the current medical therapy with cardiac rehabilitation and office follow-up in 2-4 weeks. My office will arrange. Thank you for allowing me to participate in the care of your patient. Please don't hesitate to call if any issues arise
[2017-06-20 07:55] VITALS: O2SAT 98
[2017-06-20 08:07] VITALS: BP 152/70; PULSE 67; RESP 18; TEMP 36.8; O2SAT 96
[2017-06-20] MEDS: Carvedilol 6.25 MG Tablet PO (08:10)
[2017-06-20] MEDS: Lisinopril 5 MG Tablet PO (08:10)
[2017-06-20] MEDS: Aspirin E.C. 81 MG Tablet PO (08:10)
[2017-06-20] MEDS: TICAGRELOR 90 MG TABLET PO (08:10)
[2017-06-20 08:43] LABS: Absolute Lymphocyte Count 1.58 X10^3/ul (0.83-4.51); Absolute Neutrophil Count 9.7 X10^3/uL (2.0-7.7); Basophil# 0.02 X10^3/uL; Basophil% 0.2 % (0-1); Eosinophil# 0.16 X10^3/uL; Eosinophils% 1.3 % (0-5); Hematocrit 35.6 % (37-47); Hemoglobin 11.6 g/dl (12.0-15.0); Lymphocyte # 1.58 X10^3/ul (4.0); Lymphocyte % 12.6 % (19-41); Mean Corp Hgb Conc 32.6 g/gl (32-36); Mean Corpuscular Hgb 29.5 pg (27.0-32.0); Mean Corpuscular Volume 90.6 fL (81-99); Mean Platelet Vol. 9.9 fl (6.2-12.0); Monocyte# 1.05 X10^3/uL; Monocyte% 8.4 % (0-10); Neutrophil # 9.72 X10^3/uL (2.7-7.7); Neutrophil % 77.3 % (47-70); Platelet Count 205 K/mm3 (150-450); RBC Distribution Width CV 13.8 % (11.6-14.6); RBC Distribution Width SD 45.7 fl (35.1-43.9); Red Blood Count 3.93 M/mm3 (4.2-5.4); White Blood Count 12.6 K/mm3 (4.4-11.0)
[2017-06-20 08:46] LABS: POSITIVE COUNT NO; POSITIVE DIFFERENTIAL NO; POSITIVE MORPHOLOGY NO
--- NOTE | 2017-06-20 09:58 | PCM.DC ---
- Discharge Diagnoses Current Active Problems: Current Active and Chronic Problems ST elevation (STEMI) myocardial infarction (Acute) You will use the following diet at home:: Cardiac Allergies/Adverse Reactions: Allergies No Known Allergies Allergy (Verified 06/17/17 11:33) Medications to take at Discharge Allopurinol [Zyloprim] 300 mg PO DAILY PRN 06/17/17 Colesevelam HCl [Welchol] 3.75 gm PO DAILY 06/17/17 Liraglutide [Victoza] 1.8 mg SQ DAILY 06/17/17 Metformin(XR) [Glucophage Xr] 500 mg PO DAILY 06/17/17 Ticagrelor [Brilinta] 90 mg PO BID #60 tab 06/19/17 Aspirin E.C. [Ecotrin] 81 mg PO DAILY@0800 tablet 06/20/17 Atorvastatin Calcium [Lipitor] 40 mg PO QHS #30 tab 06/20/17 Carvedilol [Coreg (Beta Juarez)] 6.25 mg PO BID #60 tab 06/20/17 Lisinopril [Zestril] 5 mg PO DAILY #30 tab 06/20/17 The following prescriptions were given: Atorvastatin Calcium [Lipitor] 40 mg PO QHS #30 tab Lisinopril [Zestril] 5 mg PO DAILY #30 tab Carvedilol [Coreg (Beta Juarez)] 6.25 mg PO BID #60 tab Ticagrelor [Brilinta] 90 mg PO BID #60 tab Primary Care Physician: Chelita Pascual [Primary Care Provider] - Within 2 Weeks Please Follow Up With: Donald Law MD - 2-3 weeks Proposed Discharge Date: 06/20/17
--- NOTE | 2017-06-20 10:00 | DS.PCM_ITS ---
Discharge Date and Diagnosis Date of Admission: 06/17/17 Date of Discharge: 06/20/17 - Primary Discharge Diagnosis Active and Suspected Problems ST elevation (STEMI) myocardial infarction (Acute) Hospital Course and Treatment Summary of Care Provided: This is an 82 year old F with past medical history significant for diabetes mellitus, hypertension and dyslipidemia to the emergency room with chest pain, EKG was consistent with acute inferior STEMI, the patient was taken to the [facility] emergently and underwent left heart catheterization with successfully angioplasty and bare-metal extensive stenting of the right coronary artery . S he was also found to have occlusive coronary disease in the LAD and obtuse marginal branch; she will follow-up with cardiology for further management. Patient is currently on optimal guideline directed medical therapy and was discharged home in a stable condition symptom-free. Discharge Diet: No Restrictions Home Medications: Medications to take at Discharge Allopurinol [Zyloprim] 300 mg PO DAILY PRN 06/17/17 Colesevelam HCl [Welchol] 3.75 gm PO DAILY 06/17/17 Liraglutide [Victoza] 1.8 mg SQ DAILY 06/17/17 Metformin(XR) [Glucophage Xr] 500 mg PO DAILY 06/17/17 Ticagrelor [Brilinta] 90 mg PO BID #60 tab 06/19/17 Aspirin E.C. [Ecotrin] 81 mg PO DAILY@0800 tablet 06/20/17 Atorvastatin Calcium [Lipitor] 40 mg PO QHS #30 tab 06/20/17 Carvedilol [Coreg (Beta Juarez)] 6.25 mg PO BID #60 tab 06/20/17 Lisinopril [Zestril] 5 mg PO DAILY #30 tab 06/20/17 Following Prescrptions Were Given to Patient: Atorvastatin Calcium [Lipitor] 40 mg PO QHS #30 tab Lisinopril [Zestril] 5 mg PO DAILY #30 tab Carvedilol [Coreg (Beta Juarez)] 6.25 mg PO BID #60 tab Ticagrelor [Brilinta] 90 mg PO BID #60 tab Primary Care Physician: Chelita Pascual [Primary Care Provider] - Within 2 Weeks Please Follow Up With: Donald Law MD - 2-3 weeks Medical Necessity - Tobacco Use Smoking Status: Former smoker - States smoked some in her younger days. Tobacco Use: Non-smoker Meaningful Use Info Meaningful Use Diagnoses (Choose all that apply): None applicable Code Visit Inpatient E&M: 62633 Disch Hosp
== END 2017-06-20 11:11 | disposition home or self-care (01) | DRG 248 ==
LOC: ED 11:42 → ICU 12:13 → PCU 06-20 07:57
PROVIDERS: Internal Medicine Cardiovascular Disease; Admitting Provider Internal Medicine; Emergency Provider Emergency Medicine; Family Provider Nurse Practitioner; PCP Nurse Practitioner; Visit Provider Internal Medicine
DX: I21.19 ST elevation (STEMI) myocardial infarction involving other coronary artery of inferior wall (principal); I25.82 Chronic total occlusion of coronary artery; D64.9 Anemia, unspecified; E11.9 Type 2 diabetes mellitus without complications; I10 Essential (primary) hypertension; E78.5 Hyperlipidemia, unspecified; I25.10 Atherosclerotic heart disease of native coronary artery without angina pectoris; Z91.14 Patient's other noncompliance with medication regimen; Z91.19 Patient's noncompliance with other medical treatment and regimen; Z79.02 Long term (current) use of antithrombotics/antiplatelets; Z79.84 Long term (current) use of oral hypoglycemic drugs; Z79.82 Long term (current) use of aspirin; Z79.899 Other long term (current) drug therapy; Z87.891 Personal history of nicotine dependence
CPT/HCPCS: 71045; 80048; 80053; 80061; 82962; 84484; 85025; 85027; 85347; 87641; 92941; 93005; 93306; 93454; 99152; 99153; 99283; J3010; J7030; Q9957; Q9967; A4216; C1725; C1760; C1769; C1876; C1887; C1894; C8929; J0583; J1327; J2405

== ENCOUNTER → 2017-07-27 07:08 | Outpatient (CLI) | payer MEDICARE, SELFPAY ==
[2017-06-19 08:53] VITALS: BMI 28.1
--- NOTE | 2017-07-27 07:20 | PCM.CR.ITP ---
General Information - General Information Admitting Diagnosis: PTCA with stents - Education/Goals Barriers to Learning: None Individual Counseling: Initial Assessment: Abnormal Cholesterol Levels, High Blood Pressure, Overweight/Obesity, Diabetes, Hypertension, Low HDL <40/Males or <50/Females, Sedentary Lifestyle, Family History of Heart Disease (under 65 years) Cardiac Rehabilitation Goals: 1. Maintain the individual as the primary focus of care. 2. To improve the patient's quality of life. 3. Identification of cardiac risk factors and provide cardiac risk factor management. 4. Enhance the psychosocial status of the patient. 5. Reconditioning enough to allow the patient to resume customary activities. 6. Control symptoms of cardiac disease Scale for measuring improvement of personal goals: Enter appropriate number in Comments. 2 = Unchanged. 3 = Slightly Better. 4 = Moderate Improvement. 5 = Met my Goal Personal Goals: Initial Assessment: Improve energy level, Improve knowledge of cardiac disease, Improve muscle strength and endurance, Improve diet and eating habits (eat healthier) Nutrition - Initial Assessment - Program Goals Nutrition Program Goals: LDL <70. Total Cholesterol <200. HDL >45. Triglycerides <150. HgbA1C <7%. BMI <25 - Visit Date of Assessment:: 07/27/17 - Stages of Change Stages of Change:: Pre-contemplation, Action - Diabetes Diabetes:: Yes Non-Insulin Dependent?: Yes Do you monitor your blood sugar at home?: Yes - Weight Management Height: 18.9 m Weight:: 67.132 kg Weight Goal (kg):: 59.786 kg Body Fat %:: 27.1 Goal % Body Fat:: 24 - Intervention Referral to dietitian:: Yes Referral to Diabetic Clinic:: Yes Will attend diet classes:: Yes - Education Gave educational materials for:: Signs & symptoms of hypoglycemia, Signs & symptoms of hyperglycemia, Relate diabetes to coronary artery disease, Healthy eating Tobacco - Initial Assessment - Program Goals Tobacco Program Goals: Complete smoking cessation. Attend education classes. Improve Knowledge Test score - Stage of Change Stages of Change:: Maintenance - Learning Barriers Learning Barriers: Ready to Learn - Family Support Do you have family support?: Yes - Tobacco Use Tobacco Use: Non-smoker How long ago did you quit using tobacco products?: Greater than or equal to 6 months ago Do you use smokeless tobacco?: No - Intervention Smoking Cessation Referral:: No Individual Education/Counseling:: No Education Schedule Given:: Yes - Education Gave educational material for:: Tobacco triggers, Coronary artery disease, Risk factors, Sexuality, Medical compliance, Cardiac A&P, Angina signs & symptoms Psychosocial - Initial Assess - Target Goals Target Goals: Assess presence or absence of depression. Using a valid screening tool, maximizes coping skills. Positive support system - Stages of Change Stages of Change:: Pre-contemplation, Action - Psychosocial Test Tool Used:: HANDS Depression Questionnaire Self-reported stress:: no Tests Completed: SF - 36 survey completed, Mood Scale Test - 3 Total Mood Screening Score:: 3 Self-Efficacy Score:: 14 - Intervention PS - Interventions: Yes Attend Stress Management Classes, Yes Uses Stress Management Skills, No Referral to Mental Health, No Referral to [facility] Case Management, No Referral to Physician - Education Gave educational materials for:: Coping techniques, Signs & symptoms of depression, Stress management, Relaxation techniques - Patient/Program Goal Preventative Medication(s):: Aspirin, ALBERTINA inhibitor, Clopidogrel, Beta kartik, Statin/lipid - Assistive Devices Assistive Devices:: None Fall Risk Assessed:: Yes Patient Health Questionnaire Initial Assessment 1. Little interest or pleasure in doing things: Several days 2. Feeling down, depressed, or hopeless: Not at all 3. Trouble falling or staying asleep, or sleeping too much: Not at all 4. Feeling tired or having little energy: Several days 5. Poor appetite or overeating: Not at all 6. Feeling bad about yourself -- or that you are a failure or have let yourself or your family down: Not at all 7. Trouble concentrating on things, such as reading the newspaper or watching television: Several days 8. Moving or speaking so slowly that other people could have noticed. Or the opposite - being so fidgety or restless that you have been moving around a lot more than usual: Not at all 9. Thoughts that you would be better off , or of hurting yourself in some way: Not at all How difficult have these problems made it for you to do your work, take care of things at home, or get along with other people?: Not difficult at all Total Score: 3 ARMIN-Q SV Test - Statements CAD is a disease of the arteries in the heart: False Examples of risk factors for heart disease: True Angina is chest pain or discomfort: True The benefits of resistance training include: True Eating more meat and dairy products: True Anti-platelet medications such as aspirin are important: True The only effective way to manage stress: True An exercise warm-up slowly increases heart rate: True Prepared, processed foods usually have high sodium: True Depression is common after a heart attack: True The statin medications lower cholesterol: True To control blood pressure, lower the amount of sodium: True If someone gets chest discomfort during walking: False Transfats are partially hydrogenated vegetable oils: I Don't Know Sleep apnea that is not treated increases the risk: I Don't Know To control cholesterol, one should become a vegetarian: I Don't Know Someone knows if he/she is exercising at the right level: I Don't Know Diabetes cannot be prevented with exercise & health eating: False Stress is a large risk for heart attack: True A diet that can help lower blood pressure is rich in: True - Total Score Total Correct Responses: 14 Self-Efficacy Initial Assessment We would like to know how confident you are in doing certain activities. Please select your confidence level for:: Select your confidence level for the following using the scale 1-10 where 1 is not at all confident and 10 is totally confident. Your score is the average of all 6 responses. Fatigue: How confident are you that you can keep the fatigue caused by your disease from interfering with the things you want to do? Select Number: 7 Physical Discomfort or Pain: How confident are you that you can keep the physical discomfort or pain of your disease from interfering with the things you want to do? Select Number: 7 Emotional Distress: How confident are you that you can keep the emotional distress caused by your disease from interfering with the things you want to do? Select Number: 6 Other Symptoms or Health Problems: How confident are you that you can keep other symptoms or health problems from interfering with the things you want to do? Select Number: 7 Different Tasks and Activities: How confident are you that you can do the different tasks and activities needed to manage your health condition so as to reduce your need to see a doctor? Select Number: 6 Medication: How confident are you that you can do things other than just taking medication to reduce how much your illness affects your everyday life? Select Number: 6 Total Score:: 6 Nutrition Survey - Nutrition Survey Instructions Scoring Instructions: Scoring is as follows: Yes = 1 points. No = 0 point. Patient score that is >/=12 is considered to be at potential nutritional risk and could benefit from a referral to a registered dietitian. - Nutrition Survey Initial Have you lost >10 lbs over the past 2 months without trying?: No Are you following a special diet at home for diabetes, low fat, or low salt?: No Are you interested in meeting with a dietitian for help understanding your diet?: Yes Do you eat less than 3 meals a day?: No Do you eat fatty meats (ponce, sausage, ribs, etc), fried foods, desserts, large amounts of salad dressings, margarine, butter, or cheese most days?: No Do you have food allergies? [Enter types in comment field]: No Do you eat in restaurants more than 3 times a week?: No Do you season food with salt, seasoning salt, or garlic salt?: Yes Do you used canned, boxed, frozen meals, or soups, seasoning packets?: No Total Score:: 2
--- NOTE | 2017-07-27 07:21 | PCM.CR.HP2 ---
CR - History & Physical - General Arrival date:: 07/27/17 Arrival time:: 07:21 Date of Referral:: 07/27/17 Date of CR Evaluation:: 07/27/17 Referring Physician: Primary Diagnosis: PTCA with stent - History of Present Cardiac Event Onset Date: Enter Onset Date of cardiac illnesses in Comment field below Current stable Angina Pectoris:: Yes - 06/17/17 Acute Myocardial Infarction within 12 months:: Yes - STEMI 06/17/17 Coronary Artery Bypass Graft:: No Heart valve replacement or repair:: No PTCA or coronary stenting:: Yes - 06/17/17 Heart or Heart-Lung Transplant:: No Heart Failure EF <35%:: No Type of Symptoms:: Chest and back pain. Interventions with present event:: PTCA with stents Were there any complications?: no - Medications Home Medications: Ambulatory Orders Medication Instructions Recorded Allopurinol [Zyloprim] 300 mg PO DAILY PRN 06/17/17 Liraglutide [Victoza] 1.8 mg SQ DAILY 06/17/17 Metformin(XR) [Glucophage Xr] 500 mg PO DAILY 06/17/17 Aspirin E.C. [Ecotrin] 81 mg PO DAILY@0800 tab 06/20/17 Atorvastatin Calcium [Lipitor] 40 mg PO QHS #30 tab 06/20/17 Carvedilol [Coreg (Beta Juarez)] 6.25 mg PO BID #60 tab 06/20/17 Lisinopril [Zestril] 5 mg PO DAILY #30 tab 06/20/17 clopidogrel 75 mg tablet 75 mg PO QDAY #90 tab 07/19/17 - Allergies Allergies/Adverse Reactions: Allergies No Known Allergies Allergy (Verified 07/19/17 09:10) - Sleep Disorder Evaluation Hx of Sleep Apnea: No Do you snore loudly (louder than talking or can be heard through closed doors)?: Yes Do you often feel tired/ fatigued/ sleepy during daytime?: Yes Has anyone observed you stop breathing during sleep?: No History of Hypertension (for STOP score): Yes STOP Results: Positive Advanced Directives - Advanced Directives Power of Asset Card Clerk: No Living Will: No Advance Directives Information Provided: Yes Advance Directives on File: No DNR Order?:: No - MOLST See MOLST form: No Past Medical History - Past Medical Illness Medical History: Past Medical History (Last Reviewed 07/19/17 @ 09:34 by Donald Law MD) Type 2 diabetes mellitus without complications (Chronic) E11.9 Hyperlipidemia (Chronic) E78.5 Hypertension (Chronic) I10 Myocardial infarction, inferior wall (Acute) I21.19 ST elevation (STEMI) myocardial infarction (Acute) I21.3 - Past Surgical History Surgical History: Past Surgical History (Last Reviewed 07/19/17 @ 09:34 by Donald Law MD) H/O right coronary artery stent placement (Acute) Onset Date: ~06/17/17 Z95.5 PCI-BMS-Mid and Prox RCA w/ 2.25 x 18 mm, 2.25 x 14 mm, 2.25 x 12 mm Integrity and 2.5 x 16 mm Rebel 06/17/2017 History of carpal tunnel release Z98.890 History of cataract surgery Z98.49 History of left heart catheterization Onset Date: ~06/17/17 Z98.890 Surgical History: cataract, - - Carpal tunnel surgery - Family History Summary Family History: Family History (Last Reviewed 07/19/17 @ 09:34 by Donald Law MD) Mother Breast cancer Social History - Smoking History Smoking Status: Former smoker - smoked some in her younger days. Hx Tobacco Use: No Hx Smoking Exposure: No - Alcohol Use Alcohol Usage: No - Substance Abuse Hx Substance Use: No - Occupation Occupation (List type of work in comments):: Retired - Hobbies, Recreation, Social Activities Hobbies: Other - cards Recreational Activities: I am able to engage in all my recreational activities Social Environment - Status Marital Status: - Current Living Arrangements Living Environment:: Spouse - Children How many children do you have?: 2 Do any of your children live nearby?: Yes - Safety Do you feel safe in your surroundings?: Yes - Assistance Do you need any assistance at home?: no Review of Systems - Review of Systems Hints: Right click = Denies (Slash). Left click = Reports ([place]) Review of Present Symptoms: Reports: Fatigue - some, Appetite - Normal, Appetite - Special Diet, Sleep - Normal - sme nights toss and turn more. Denies: Shortness of Breath at Rest, Shortness of Breath with Exertion, PVD, Operative Discomfort, Angina, Wound Healing, Dizziness/Lightheadedness, Heart Arrhythmia/Irregularities, Sexual Changes - Pain Is Patient Pain Free?: Yes Risk Factor Assessment - Chief Complaint Chief Complaint: get stronger. - Vital Signs Respiratory Rate: 20 Pulse Ox: 95 - Pulse Pulse Rate: 72 - Hypertension Blood Pressure Sitting - Right Arm: 140/70 Blood Pressure Sitting - Left Arm: 128/74 - Diabetes Diabetic History: Type II Nutrition Referral for Diabetes: Yes - Obesity Height: 1.57 m Weight:: 67.132 kg Weight in Pounds: 148.0 lbs Weight Source: Standing Scale Body Mass Index (BMI): 27.1 Desired Body Weight: 131 Realistic Weight Goal (Loss of 1-2 lbs/week): 131 Nutritional Referral for Obesity: Yes - Physical Inactivity Physical Inactivity: Reg Exercise 30 min/day - Risk Stratification Risk Guidelines: Lowest Risk: Risk Factor for Smoking, Risk Factor for Depression, Moderate Risk: Risk Factor for Dyslipidemia, Risk Factor for Diabetes, Risk Factor for Obesity, Risk Factor for Hypertension, Risk Factor for Sedentary Lifestyle - For Smoking Smoking Risk Guidelines: Smoking Low Risk: None or quit greater than 6 months ago. Smoking Moderate Risk: Smoker or quit 6 months or less ago. Smoking High Risk: Smoker - For Dyslipidemia Dyslipidemia Risk Guidelines: Low Risk: Moderate Risk: High Risk: 15-25% fat 25.1-29% fat >/= 30% fat. <7% sat fat 7-9% sat fat >9% sat fat. <150 mg chol 150-299 mg chol >/= 300 mg chol. LDL <100 LDL 100-129 LDL >/= 130. Chol/HDL ratio <5.0 Chol/HDL ratio 5.0-6.0 Chol/HDL ratio >6.0. Triglycerides <100 Triglycerides 100-149 Triglycerides >/= 150 - For Diabetes Mellitus Diabetes Risk Guidelines: Diabetes Low Risk: HgA1c <6.5% and/or FBG <120. Diabetes Moderate Risk: HgA1c 6.6-7.9% and/or FBG 120-180. Diabetes High Risk: HgA1c >/= 8% and/or FBG >180 - For Obesity/Overweight Obesity/Overweight Risk Guidelines: Obesity Low Risk: BMI <25.0. Obesity Moderate Risk: BMI 25-29.9. Obesity High Risk: BMI >/= 30.0 - For Hypertension Hypertension Risk Guidelines: Hypertension Low Risk: Systolic <120 and Diastolic <80. Hypertension Moderate Risk: Systolic 120-139 and Diastolic 80-89. Hypertension High Risk: Systolic >/= 140 and Diastolic >/= 90 - For Sedentary Lifestyle Sedentary Lifestyle Risk Guidelines: Sedentary Lifestyle Low Risk: >/= 1,500 kcal/week. Sedentary Lifestyle Moderate Risk: 700-1,499 kcal/week. Sedentary Lifestyle High Risk: < 700 kcal/week - For Depression Depression Risk Guidelines: Depression Low Risk: Not clinically depressed. Depression Moderate Risk: Mildly depressed. Depression High Risk: Clinically depressed - Family History Family History: Family History (Last Reviewed 07/19/17 @ 09:34 by Donald Law MD) Mother Breast cancer Motivation - Motivation to Participate On a scale of 1 to 10, how prepared are you to commit to attending program?: 5 What do you see as barriers to successfully being able to complete the program?: time What do you see as the benefits of succesfully completing the program? In other words, what do you hope to get out of participating in the program?: be healthy
--- NOTE | 2017-07-27 07:48 | CR.HP_ITS ---
CR - History & Physical - General Arrival date:: 07/27/17 Arrival time:: 07:21 Date of Referral:: 07/27/17 Date of CR Evaluation:: 07/27/17 Referring Physician: Primary Diagnosis: PTCA with stent - History of Present Cardiac Event Onset Date: Enter Onset Date of cardiac illnesses in Comment field below Current stable Angina Pectoris:: Yes - 06/17/17 Acute Myocardial Infarction within 12 months:: Yes - STEMI 06/17/17 Coronary Artery Bypass Graft:: No Heart valve replacement or repair:: No PTCA or coronary stenting:: Yes - 06/17/17 Heart or Heart-Lung Transplant:: No Heart Failure EF <35%:: No Type of Symptoms:: Chest and back pain. Interventions with present event:: PTCA with stents Were there any complications?: no - Medications Home Medications: Ambulatory Orders Medication Instructions Recorded Allopurinol [Zyloprim] 300 mg PO DAILY PRN 06/17/17 Liraglutide [Victoza] 1.8 mg SQ DAILY 06/17/17 Metformin(XR) [Glucophage Xr] 500 mg PO DAILY 06/17/17 Aspirin E.C. [Ecotrin] 81 mg PO DAILY@0800 tab 06/20/17 Atorvastatin Calcium [Lipitor] 40 mg PO QHS #30 tab 06/20/17 Carvedilol [Coreg (Beta Juarez)] 6.25 mg PO BID #60 tab 06/20/17 Lisinopril [Zestril] 5 mg PO DAILY #30 tab 06/20/17 clopidogrel 75 mg tablet 75 mg PO QDAY #90 tab 07/19/17 - Allergies Allergies/Adverse Reactions: Allergies No Known Allergies Allergy (Verified 07/19/17 09:10) - Sleep Disorder Evaluation Hx of Sleep Apnea: No Do you snore loudly (louder than talking or can be heard through closed doors)? : Yes Do you often feel tired/ fatigued/ sleepy during daytime?: Yes Has anyone observed you stop breathing during sleep?: No History of Hypertension (for STOP score): Yes STOP Results: Positive Advanced Directives - Advanced Directives Power of Flotation Operator: No Living Will: No Advance Directives Information Provided: Yes Advance Directives on File: No DNR Order?:: No - MOLST See MOLST form: No Past Medical History - Past Medical Illness Medical History: Past Medical History (Last Reviewed 07/19/17 @ 09:34 by Donald Law MD) Type 2 diabetes mellitus without complications (Chronic) E11.9 Hyperlipidemia (Chronic) E78.5 Hypertension (Chronic) I10 Myocardial infarction, inferior wall (Acute) I21.19 ST elevation (STEMI) myocardial infarction (Acute) I21.3 - Past Surgical History Surgical History: Past Surgical History (Last Reviewed 07/19/17 @ 09:34 by Donald Law MD) H/O right coronary artery stent placement (Acute) Onset Date: ~06/17/17 Z95.5 PCI-BMS-Mid and Prox RCA w/ 2.25 x 18 mm, 2.25 x 14 mm, 2.25 x 12 mm Integrity and 2.5 x 16 mm Rebel 06/17/2017 History of carpal tunnel release Z98.890 History of cataract surgery Z98.49 History of left heart catheterization Onset Date: ~06/17/17 Z98.890 Surgical History: cataract, - - Carpal tunnel surgery - Family History Summary Family History: Family History (Last Reviewed 07/19/17 @ 09:34 by Donald Law MD) Mother Breast cancer Social History - Smoking History Smoking Status: Former smoker - smoked some in her younger days. Hx Tobacco Use: No Hx Smoking Exposure: No - Alcohol Use Alcohol Usage: No - Substance Abuse Hx Substance Use: No - Occupation Occupation (List type of work in comments):: Retired - Hobbies, Recreation, Social Activities Hobbies: Other - cards Recreational Activities: I am able to engage in all my recreational activities Social Environment - Status Marital Status: - Current Living Arrangements Living Environment:: Spouse - Children How many children do you have?: 2 Do any of your children live nearby?: Yes - Safety Do you feel safe in your surroundings?: Yes - Assistance Do you need any assistance at home?: no Review of Systems - Review of Systems Hints: Right click = Denies (Slash). Left click = Reports ([place]) Review of Present Symptoms: Reports: Fatigue - some, Appetite - Normal, Appetite - Special Diet, Sleep - Normal - sme nights toss and turn more. Denies : Shortness of Breath at Rest, Shortness of Breath with Exertion, PVD, Operative Discomfort, Angina, Wound Healing, Dizziness/Lightheadedness, Heart Arrhythmia/Irregularities, Sexual Changes - Pain Is Patient Pain Free?: Yes Risk Factor Assessment - Chief Complaint Chief Complaint: get stronger. - Vital Signs Respiratory Rate: 20 Pulse Ox: 95 - Pulse Pulse Rate: 72 - Hypertension Blood Pressure Sitting - Right Arm: 140/70 Blood Pressure Sitting - Left Arm: 128/74 - Diabetes Diabetic History: Type II Nutrition Referral for Diabetes: Yes - Obesity Height: 1.57 m Weight:: 67.132 kg Weight in Pounds: 148.0 lbs Weight Source: Standing Scale Body Mass Index (BMI): 27.1 Desired Body Weight: 131 Realistic Weight Goal (Loss of 1-2 lbs/week): 131 Nutritional Referral for Obesity: Yes - Physical Inactivity Physical Inactivity: Reg Exercise 30 min/day - Risk Stratification Risk Guidelines: Lowest Risk: Risk Factor for Smoking, Risk Factor for Depression, Moderate Risk: Risk Factor for Dyslipidemia, Risk Factor for Diabetes, Risk Factor for Obesity, Risk Factor for Hypertension, Risk Factor for Sedentary Lifestyle - For Smoking Smoking Risk Guidelines: Smoking Low Risk: None or quit greater than 6 months ago. Smoking Moderate Risk: Smoker or quit 6 months or less ago. Smoking High Risk: Smoker - For Dyslipidemia Dyslipidemia Risk Guidelines: Low Risk: Moderate Risk: High Risk: 15-25% fat 25.1-29% fat >/= 30% fat. <7% sat fat 7-9% sat fat >9% sat fat. <150 mg chol 150-299 mg chol >/= 300 mg chol. LDL <100 LDL 100-129 LDL >/= 130. Chol/HDL ratio <5.0 Chol/HDL ratio 5.0-6.0 Chol/HDL ratio >6.0. Triglycerides <100 Triglycerides 100-149 Triglycerides >/= 150 - For Diabetes Mellitus Diabetes Risk Guidelines: Diabetes Low Risk: HgA1c <6.5% and/or FBG <120. Diabetes Moderate Risk: HgA1c 6.6-7.9% and/or FBG 120-180. Diabetes High Risk: HgA1c >/= 8% and/or FBG >180 - For Obesity/Overweight Obesity/Overweight Risk Guidelines: Obesity Low Risk: BMI <25.0. Obesity Moderate Risk: BMI 25-29.9. Obesity High Risk: BMI >/= 30.0 - For Hypertension Hypertension Risk Guidelines: Hypertension Low Risk: Systolic <120 and Diastolic <80. Hypertension Moderate Risk: Systolic 120-139 and Diastolic 80-89. Hypertension High Risk: Systolic >/= 140 and Diastolic >/= 90 - For Sedentary Lifestyle Sedentary Lifestyle Risk Guidelines: Sedentary Lifestyle Low Risk: >/= 1 ,500 kcal/week. Sedentary Lifestyle Moderate Risk: 700-1,499 kcal/week. Sedentary Lifestyle High Risk: < 700 kcal/week - For Depression Depression Risk Guidelines: Depression Low Risk: Not clinically depressed. Depression Moderate Risk: Mildly depressed. Depression High Risk: Clinically depressed - Family History Family History: Family History (Last Reviewed 07/19/17 @ 09:34 by Donald Law MD) Mother Breast cancer Motivation - Motivation to Participate On a scale of 1 to 10, how prepared are you to commit to attending program?: 5 What do you see as barriers to successfully being able to complete the program? : time What do you see as the benefits of succesfully completing the program? In other words, what do you hope to get out of participating in the program?: be healthy
[2017-07-27 08:29] VITALS: BP 128/74; BP 140/70; PULSE 72; RESP 20; O2SAT 95; BMI 27.1
== END ==
PROVIDERS: Family Provider Nurse Practitioner; PCP Nurse Practitioner; Visit Provider Internal Medicine Cardiovascular Disease
DX: I20.8 Other forms of angina pectoris (principal); I25.2 Old myocardial infarction

== ENCOUNTER 2017-08-16 09:15 | Outpatient (RCR) | payer MEDICARE, SELFPAY ==
[2017-06-19 08:53] VITALS: BMI 28.1
--- NOTE | 2017-08-09 14:30 | PCM.CR.ITP ---
General Information - General Information Admitting Diagnosis: PTCA coronary stents - Education/Goals Barriers to Learning: None Individual Counselin-Day Assessment: Abnormal Cholesterol Levels, High Blood Pressure, Overweight/Obesity, Diabetes Cardiac Rehabilitation Goals: 1. Maintain the individual as the primary focus of care. 2. To improve the patient's quality of life. 3. Identification of cardiac risk factors and provide cardiac risk factor management. 4. Enhance the psychosocial status of the patient. 5. Reconditioning enough to allow the patient to resume customary activities. 6. Control symptoms of cardiac disease Scale for measuring improvement of personal goals: Enter appropriate number in Comments. 2 = Unchanged. 3 = Slightly Better. 4 = Moderate Improvement. 5 = Met my Goal Personal Goals: 30-day Re-assessment: Improve energy level, Improve knowledge of cardiac disease, Improve diet and eating habits (eat healthier) Exercise - 30-day Assessment - Visit Date of Eval: 08/09/17 Session #:: 5 - Stages of Change Stages of Change:: Action - Exercise Prescription Mode:: [place], iAgree Frequency (x/week): 3 Duration:: 30 METs - Progression: 0.5-1 MET as tolerated: 2.5 Target Heart Rate:: 100 Max HR 91 - Hypertension Resting Blood Pressure:: 140/72 Peak Exercise Blood Pressure:: 150/60 Medication Changes:: No - Intervention Home Exercise/Activity Goal:: Sitting Time <3 hrs/day - Education Goals:: Warm-up, RPE AZAEL Scale, S/S, Safe Exercise, Self-Monitoring - Exercise Program Goals Exercise Program Goals: Aerobic Activity >30 min, B/P <130/80 Nutrition - Initial Assessment - Program Goals Nutrition Program Goals: LDL <70. Total Cholesterol <200. HDL >45. Triglycerides <150. HgbA1C <7%. BMI <25 - Diabetes Do you monitor your blood sugar at home?: Yes Nutrition - 30-Day Assessment - Program Goals Nutrition Program Goals: LDL <70. Total Cholesterol <200. HDL >45. Triglycerides <150. HgbA1C <7%. BMI <25 - Visit Date of Eval: 08/09/17 - Stages of Change Stages of Change:: Action - Lipids Has the patient seen the dietitian?: No - Diabetes Diabetes:: Yes - Weight Management Weight:: 66.905 kg - Intervention Referral to dietitian:: Yes Referral to Diabetic Clinic:: Yes Will attend diet classes:: Yes - Education Attended class for:: Signs & symptoms of hypoglycemia, Signs & symptoms of hyperglycemia, Relate diabetes to coronary artery disease, Healthy eating Tobacco - Initial Assessment - Program Goals Tobacco Program Goals: Complete smoking cessation. Attend education classes. Improve Knowledge Test score - Learning Barriers Learning Barriers: Ready to Learn Tobacco - 30-Day Assessment - Program Goals Tobacco Program Goals: Complete smoking cessation. Attend education classes. Improve Knowledge Test score - Stage of Change Stages of Change:: Action - Learning Barriers Learning Barriers: Participates in education - Family Support Do you have family support?: Yes - Tobacco Use Tobacco Use: Non-smoker Do you use smokeless tobacco?: No - Intervention Smoking Cessation Referral:: No Individual Education/Counseling:: No Education Schedule Given:: Yes - Education Attended class for:: Tobacco triggers, Coronary artery disease, Risk factors, Sexuality, Medical compliance, Cardiac A&P, Angina signs & symptoms Psychosocial - Initial Assess - Target Goals Target Goals: Assess presence or absence of depression. Using a valid screening tool, maximizes coping skills. Positive support system - Psychosocial Test Tool Used:: HANDS Depression Questionnaire - Assistive Devices Fall Risk Assessed:: Yes Psychosocial - 30-Day Assess - Target Goals Target Goals: Assess presence or absence of depression. Using a valid screening tool, maximizes coping skills. Positive support system - Stages of Change Stages of Change:: Action - Psychosocial Test Tool Used:: HANDS Depression Questionnaire - Intervention PS - Interventions: Yes Attend Stress Management Classes, Yes Uses Stress Management Skills, No Referral to Mental Health, No Referral to [facility] Case Management, No Referral to Physician Patient Health Questionnaire 30-Day Re-eval Assessment 1. Little interest or pleasure in doing things: Several days 2. Feeling down, depressed, or hopeless: Not at all 3. Trouble falling or staying asleep, or sleeping too much: Not at all 4. Feeling tired or having little energy: Several days 5. Poor appetite or overeating: Not at all 6. Feeling bad about yourself -- or that you are a failure or have let yourself or your family down: Not at all 7. Trouble concentrating on things, such as reading the newspaper or watching television: Several days 8. Moving or speaking so slowly that other people could have noticed. Or the opposite - being so fidgety or restless that you have been moving around a lot more than usual: Not at all 9. Thoughts that you would be better off , or of hurting yourself in some way: Not at all How difficult have these problems made it for you to do your work, take care of things at home, or get along with other people?: Not difficult at all Total Score: 3 Self-Efficacy 30-Day Re-eval Assessment We would like to know how confident you are in doing certain activities. Please select your confidence level for:: Select your confidence level for the following using the scale 1-10 where 1 is not at all confident and 10 is totally confident. Your score is the average of all 6 responses. Fatigue: How confident are you that you can keep the fatigue caused by your disease from interfering with the things you want to do? Select Number: 7 Physical Discomfort or Pain: How confident are you that you can keep the physical discomfort or pain of your disease from interfering with the things you want to do? Select Number: 7 Emotional Distress: How confident are you that you can keep the emotional distress caused by your disease from interfering with the things you want to do? Select Number: 7 Other Symptoms or Health Problems: How confident are you that you can keep other symptoms or health problems from interfering with the things you want to do? Select Number: 7 Different Tasks and Activities: How confident are you that you can do the different tasks and activities needed to manage your health condition so as to reduce your need to see a doctor? Select Number: 7 Medication: How confident are you that you can do things other than just taking medication to reduce how much your illness affects your everyday life? Select Number: 7 Total Score:: 7
[2017-08-09 14:38] VITALS: BP 140/72; BP 150/60
== END 2017-08-17 23:59 ==
LOC: CR 09:15
PROVIDERS: Family Provider Nurse Practitioner; PCP Nurse Practitioner; Visit Provider Internal Medicine Cardiovascular Disease
DX: Z95.5 Presence of coronary angioplasty implant and graft (principal); I25.10 Atherosclerotic heart disease of native coronary artery without angina pectoris; I21.11 ST elevation (STEMI) myocardial infarction involving right coronary artery; E78.00 Pure hypercholesterolemia, unspecified; I10 Essential (primary) hypertension
CPT/HCPCS: 93798

== ENCOUNTER → 2017-08-17 12:48 | Outpatient (CLI) | payer MEDICARE, SELFPAY ==
[2017-06-19 08:53] VITALS: BMI 28.1
--- NOTE | 2017-08-17 12:50 | BI_ITS ---
MAMMOGRAPHY - BILATERAL SCREENING REASON FOR EXAM: Female, 82 years old. Routine annual screening examination. PERTINENT HISTORY: Daughter with breast cancer. Mother with breast cancer. TECHNIQUE: Digital bilateral breast becca (3D mammographic acquisition) in the CC and MLO projections. 2-D mediolateral oblique (MLO) and craniocaudad (CC) views of both breasts were obtained. CAD: Full Field Digital Mammography with Computer Added Detection was performed. COMPARISON: Comparison is made with prior study dated June 27, 2016 and June 18, 2015. FINDINGS: Breast Composition: The breasts are heterogeneously dense, which may obscure small masses. There are no dominant masses or suspicious calcifications. Stable small bilateral benign appearing axillary lymph nodes. Secretory calcifications. No other significant abnormalities are identified. There has been no significant change since the prior study. BI/SCREENING MAMM (CAD), BILAT IMPRESSION: Stable bilateral screening mammogram. Yearly follow-up mammogram recommended. (A) ASSESSMENT CATEGORY: BIRADS Category 2: Benign. A letter regarding these results will be sent to the patient by the facility within 30 days. Approximately 10% of breast cancers are not detected by mammography. A normal mammogram should not delay biopsy of a clinically suspicious abnormality. [id number] Electronically Signed: Bogdan Muñiz MD at 15:24 EDT Tel [phone], Service support ,
== END ==
PROVIDERS: Family Provider Nurse Practitioner; PCP Nurse Practitioner; Visit Provider Nurse Practitioner
DX: Z12.31 Encounter for screening mammogram for malignant neoplasm of breast (principal)
CPT/HCPCS: 77063; 77067

== ENCOUNTER 2017-09-15 09:15 | Outpatient (RCR) | payer MEDICARE, SELFPAY ==
[2017-06-19 08:53] VITALS: BMI 28.1
[2017-08-18 01:11] VITALS: BP 140/72; BP 150/60
--- NOTE | 2017-09-08 14:51 | PCM.CR.ITP ---
General Information - General Information Admitting Diagnosis: PTCA coronary stents - Education/Goals Individual Counselin-Day Assessment: Abnormal Cholesterol Levels, High Blood Pressure, Overweight/Obesity, Diabetes Cardiac Rehabilitation Goals: 1. Maintain the individual as the primary focus of care. 2. To improve the patient's quality of life. 3. Identification of cardiac risk factors and provide cardiac risk factor management. 4. Enhance the psychosocial status of the patient. 5. Reconditioning enough to allow the patient to resume customary activities. 6. Control symptoms of cardiac disease Scale for measuring improvement of personal goals: Enter appropriate number in Comments. 2 = Unchanged. 3 = Slightly Better. 4 = Moderate Improvement. 5 = Met my Goal Personal Goals: 60-day Re-assessment: Improve energy level, Improve knowledge of cardiac disease, Improve diet and eating habits (eat healthier) Exercise - 60-Day Assessment - Visit Date of Eval: 09/08/17 Session #:: 14 - 93.33% compliance - Stages of Change Stages of Change:: Action - Exercise Prescription Mode:: Biodyne, SHERPANDIPITYStep Frequency (x/week): 3 Duration:: 30 METs: 3 mets 44% increase Target Heart Rate:: 106-118 max hr 91 - Hypertension Resting Blood Pressure:: 114/52 Peak Exercise Blood Pressure:: 150/66 Medication Changes:: No - Intervention Home Exercise/Activity Goal:: Sitting Time <3 hrs/day - Education Goals:: Warm-up, RPE AZAEL Scale, S/S, Safe Exercise, Self-Monitoring - Exercise Program Goals Exercise Program Goals: Aerobic Activity >30 min, B/P <130/80 Nutrition - Initial Assessment - Program Goals Nutrition Program Goals: LDL <70. Total Cholesterol <200. HDL >45. Triglycerides <150. HgbA1C <7%. BMI <25 - Diabetes Do you monitor your blood sugar at home?: Yes Nutrition - 60-Day Assessment - Program Goals Nutrition Program Goals: LDL <70. Total Cholesterol <200. HDL >45. Triglycerides <150. HgbA1C <7%. BMI <25 - Visit Date of Eval: 09/08/17 - Stages of Change Stages of Change:: Action - Lipids Has the patient seen the dietitian?: No - Diabetes Diabetes:: Yes - Weight Management Weight:: 66.224 kg - Education Attended class for:: Signs & symptoms of hypoglycemia, Signs & symptoms of hyperglycemia, Relate diabetes to coronary artery disease, Healthy eating Tobacco - Initial Assessment - Program Goals Tobacco Program Goals: Complete smoking cessation. Attend education classes. Improve Knowledge Test score - Learning Barriers Learning Barriers: Ready to Learn Tobacco - 60-Day Assessment - Program Goals Tobacco Program Goals: Complete smoking cessation. Attend education classes. Improve Knowledge Test score - Stage of Change Stages of Change:: Action - Learning Barriers Learning Barriers: Participates in education - Family Support Do you have family support?: Yes - Tobacco Use Tobacco Use: Non-smoker Do you use smokeless tobacco?: No - Intervention Smoking Cessation Referral:: No Individual Education/Counseling:: No Education Schedule Given:: Yes - Education Attended class for:: Tobacco triggers, Coronary artery disease, Risk factors, Sexuality, Medical compliance, Cardiac A&P, Angina signs & symptoms Psychosocial - 60-Day Assess - Target Goals Target Goals: Assess presence or absence of depression. Using a valid screening tool, maximizes coping skills. Positive support system - Stages of Change Stages of Change:: Action - Psychosocial Test Tool Used:: HANDS Depression Questionnaire - Intervention PS - Interventions: Yes Attend Stress Management Classes, Yes Uses Stress Management Skills, No Referral to Mental Health, No Referral to [facility] Case Management, No Referral to Physician - Education Attended classes for:: Coping techniques, Signs & symptoms of depression, Stress management, Relaxation techniques - Assistive Devices Assistive Devices:: None Fall Risk Assessed:: Yes Patient Health Questionnaire 60-Day Re-eval Assessment 1. Little interest or pleasure in doing things: Several days 2. Feeling down, depressed, or hopeless: Not at all 3. Trouble falling or staying asleep, or sleeping too much: Not at all 4. Feeling tired or having little energy: Not at all 5. Poor appetite or overeating: Not at all 6. Feeling bad about yourself -- or that you are a failure or have let yourself or your family down: Not at all 7. Trouble concentrating on things, such as reading the newspaper or watching television: Not at all 8. Moving or speaking so slowly that other people could have noticed. Or the opposite - being so fidgety or restless that you have been moving around a lot more than usual: Not at all 9. Thoughts that you would be better off , or of hurting yourself in some way: Not at all How difficult have these problems made it for you to do your work, take care of things at home, or get along with other people?: Not difficult at all Total Score: 1 Self-Efficacy 60-Day Re-eval Assessment We would like to know how confident you are in doing certain activities. Please select your confidence level for:: Select your confidence level for the following using the scale 1-10 where 1 is not at all confident and 10 is totally confident. Your score is the average of all 6 responses. Fatigue: How confident are you that you can keep the fatigue caused by your disease from interfering with the things you want to do? Select Number: 7 Physical Discomfort or Pain: How confident are you that you can keep the physical discomfort or pain of your disease from interfering with the things you want to do? Select Number: 7 Emotional Distress: How confident are you that you can keep the emotional distress caused by your disease from interfering with the things you want to do? Select Number: 7 Other Symptoms or Health Problems: How confident are you that you can keep other symptoms or health problems from interfering with the things you want to do? Select Number: 7 Different Tasks and Activities: How confident are you that you can do the different tasks and activities needed to manage your health condition so as to reduce your need to see a doctor? Select Number: 7 Medication: How confident are you that you can do things other than just taking medication to reduce how much your illness affects your everyday life? Select Number: 7 Total Score:: 7
[2017-09-08 14:57] VITALS: BP 114/52; BP 150/66
== END 2017-09-16 23:59 ==
LOC: CR 09:15
PROVIDERS: Family Provider Nurse Practitioner; PCP Nurse Practitioner; Visit Provider Internal Medicine Cardiovascular Disease
DX: I25.10 Atherosclerotic heart disease of native coronary artery without angina pectoris (principal); I21.11 ST elevation (STEMI) myocardial infarction involving right coronary artery; E78.00 Pure hypercholesterolemia, unspecified; I10 Essential (primary) hypertension; Z95.5 Presence of coronary angioplasty implant and graft
CPT/HCPCS: 93798

== ENCOUNTER 2017-09-22 10:15 | Outpatient (RCR) | payer MEDICARE, SELFPAY ==
[2017-06-19 08:53] VITALS: BMI 28.1
[2017-09-17 00:59] VITALS: BP 114/52; BP 150/66
--- NOTE | 2017-10-11 09:23 | PCM.CR.ITP ---
Exercise - 90-Day Assessment - Visit Date of Eval: 10/11/17 - Last attended session 09/22/17 Session #:: 20 - Patient had additional stent placement - Stages of Change Stages of Change:: Relapse - Exercise Prescription Mode:: Treadmill, Rower, Airdyne, NuStep Frequency (x/week): 3 Duration:: 30 METs: 4 Target Heart Rate:: 106-118 - Hypertension Resting Blood Pressure:: 126/74 Peak Exercise Blood Pressure:: 142/70 Medication Changes:: No - Intervention Home Exercise/Activity Goal:: Moderate Exercise 30 min/day x 5 days/wk - Education Goals:: Warm-up, RPE AZAEL Scale, S/S, Safe Exercise, Self-Monitoring - Exercise Program Goals Exercise Program Goals: Aerobic Activity >30 min Nutrition - Initial Assessment - Program Goals Nutrition Program Goals: LDL <70. Total Cholesterol <200. HDL >45. Triglycerides <150. HgbA1C <7%. BMI <25 - Diabetes Do you monitor your blood sugar at home?: Yes Nutrition - 60-Day Assessment - Program Goals Nutrition Program Goals: LDL <70. Total Cholesterol <200. HDL >45. Triglycerides <150. HgbA1C <7%. BMI <25 - Weight Management Weight:: 146 lb 8 oz - down 2# Nutrition - 90-Day Assessment - Program Goals Nutrition Program Goals: LDL <70. Total Cholesterol <200. HDL >45. Triglycerides <150. HgbA1C <7%. BMI <25 - Visit Date of Eval: 10/11/17 - Stages of Change Stages of Change:: Action - Lipids Has the patient seen the dietitian?: No - Diabetes Diabetes:: No Insulin: No Non-Insulin Dependent?: No - Weight Management Weight:: 146 lb 8 oz - Intervention Referral to dietitian:: No Referral to Diabetic Clinic:: No Will attend diet classes:: Yes - Education Attended class for:: Healthy eating Tobacco - Initial Assessment - Program Goals Tobacco Program Goals: Complete smoking cessation. Attend education classes. Improve Knowledge Test score - Learning Barriers Learning Barriers: Ready to Learn Tobacco - 60-Day Assessment - Program Goals Tobacco Program Goals: Complete smoking cessation. Attend education classes. Improve Knowledge Test score - Stage of Change Stages of Change:: Relapse - Learning Barriers Learning Barriers: Participates in education - Family Support Do you have family support?: Yes - Intervention Education Schedule Given:: Yes - Education Attended class for:: Coronary artery disease, Risk factors, Sexuality, Medical compliance, Cardiac A&P, Angina signs & symptoms Tobacco - 90-Day Assessment - Program Goals Tobacco Program Goals: Complete smoking cessation. Attend education classes. Improve Knowledge Test score - Stage of Change Stages of Change:: Action - Learning Barriers Learning Barriers: Participates in education - Family Support Do you have family support?: Yes - Tobacco Use Tobacco Use: Non-smoker Do you use smokeless tobacco?: No - Intervention Smoking Cessation Referral:: No Individual Education/Counseling:: No Education Schedule Given:: Yes - Education Attended class for:: Coronary artery disease, Risk factors, Sexuality, Medical compliance, Cardiac A&P, Angina signs & symptoms Psychosocial - Initial Assess - Target Goals Target Goals: Assess presence or absence of depression. Using a valid screening tool, maximizes coping skills. Positive support system - Psychosocial Test Tool Used:: HANDS Depression Questionnaire - Assistive Devices Fall Risk Assessed:: Yes Psychosocial - 60-Day Assess - Target Goals Target Goals: Assess presence or absence of depression. Using a valid screening tool, maximizes coping skills. Positive support system - Stages of Change Stages of Change:: Action - Psychosocial Test Tool Used:: HANDS Depression Questionnaire - Intervention PS - Interventions: Yes Attend Stress Management Classes, Yes Uses Stress Management Skills, No Referral to Mental Health, No Referral to [facility] Case Management, No Referral to Physician - Education Attended classes for:: Coping techniques, Signs & symptoms of depression, Stress management, Relaxation techniques - Patient/Program Goal Preventative Medication(s):: Aspirin, Clopidogrel, Beta kartik, Statin/lipid - Assistive Devices Assistive Devices:: None Fall Risk Assessed:: Yes Psychosocial - 90-Day Assess - Target Goals Target Goals: Assess presence or absence of depression. Using a valid screening tool, maximizes coping skills. Positive support system - Stages of Change Stages of Change:: Action - Psychosocial Test Tool Used:: HANDS Depression Questionnaire - Intervention PS - Interventions: Yes Attend Stress Management Classes, Yes Uses Stress Management Skills, No Referral to Mental Health, No Referral to [facility] Case Management, No Referral to Physician - Education Attended classes for:: Coping techniques, Signs & symptoms of depression, Stress management, Relaxation techniques - Patient/Program Goal Preventative Medication(s):: Aspirin, Clopidogrel, Beta kartik, Statin/lipid - Assistive Devices Assistive Devices:: None Fall Risk Assessed:: Yes Patient Health Questionnaire 60-Day Re-eval Assessment 1. Little interest or pleasure in doing things: Several days 2. Feeling down, depressed, or hopeless: Not at all 3. Trouble falling or staying asleep, or sleeping too much: Not at all 4. Feeling tired or having little energy: Not at all 5. Poor appetite or overeating: Not at all 6. Feeling bad about yourself -- or that you are a failure or have let yourself or your family down: Not at all 7. Trouble concentrating on things, such as reading the newspaper or watching television: Not at all 8. Moving or speaking so slowly that other people could have noticed. Or the opposite - being so fidgety or restless that you have been moving around a lot more than usual: Not at all 9. Thoughts that you would be better off , or of hurting yourself in some way: Not at all How difficult have these problems made it for you to do your work, take care of things at home, or get along with other people?: Not difficult at all Total Score: 1 Self-Efficacy 60-Day Re-eval Assessment We would like to know how confident you are in doing certain activities. Please select your confidence level for:: Select your confidence level for the following using the scale 1-10 where 1 is not at all confident and 10 is totally confident. Your score is the average of all 6 responses. Fatigue: How confident are you that you can keep the fatigue caused by your disease from interfering with the things you want to do? Select Number: 8 Physical Discomfort or Pain: How confident are you that you can keep the physical discomfort or pain of your disease from interfering with the things you want to do? Select Number: 8 Emotional Distress: How confident are you that you can keep the emotional distress caused by your disease from interfering with the things you want to do? Select Number: 8 Other Symptoms or Health Problems: How confident are you that you can keep other symptoms or health problems from interfering with the things you want to do? Select Number: 8 Different Tasks and Activities: How confident are you that you can do the different tasks and activities needed to manage your health condition so as to reduce your need to see a doctor? Select Number: 9 Medication: How confident are you that you can do things other than just taking medication to reduce how much your illness affects your everyday life? Select Number: 9 Total Score:: 8
[2017-10-11 09:38] VITALS: BP 126/74; BP 142/70
== END 2017-10-17 23:59 ==
LOC: CR 10:15
PROVIDERS: Family Provider Nurse Practitioner; PCP Nurse Practitioner; Visit Provider Internal Medicine Cardiovascular Disease
DX: I25.10 Atherosclerotic heart disease of native coronary artery without angina pectoris (principal); I21.11 ST elevation (STEMI) myocardial infarction involving right coronary artery; E78.00 Pure hypercholesterolemia, unspecified; I10 Essential (primary) hypertension; Z95.5 Presence of coronary angioplasty implant and graft
CPT/HCPCS: 93798

== ENCOUNTER 2017-09-25 08:25 | Day surgery (SDC) | payer MEDICARE, SELFPAY ==
[2017-06-19 08:53] VITALS: BMI 28.1
[2017-09-25 08:39] LABS: Absolute Lymphocyte Count 1.37 X10^3/ul (0.83-4.51); Absolute Neutrophil Count 6.3 X10^3/uL (2.0-7.7); Basophil# 0.01 X10^3/uL; Basophil% 0.1 % (0-1); Eosinophil# 0.11 X10^3/uL; Eosinophils% 1.3 % (0-5); Hematocrit 38.7 % (37-47); Hemoglobin 12.1 g/dl (12.0-15.0); Lymphocyte # 1.37 X10^3/ul (4.0); Lymphocyte % 16.5 % (19-41); Mean Corp Hgb Conc 31.3 g/gl (32-36); Mean Corpuscular Hgb 28.7 pg (27.0-32.0); Mean Corpuscular Volume 91.9 fL (81-99); Mean Platelet Vol. 9.7 fl (6.2-12.0); Monocyte# 0.53 X10^3/uL; Monocyte% 6.4 % (0-10); Neutrophil # 6.28 X10^3/uL (2.7-7.7); Neutrophil % 75.6 % (47-70); Platelet Count 212 K/mm3 (150-450); RBC Distribution Width CV 15.6 % (11.6-14.6); RBC Distribution Width SD 52.4 fl (35.1-43.9); Red Blood Count 4.21 M/mm3 (4.2-5.4); White Blood Count 8.3 K/mm3 (4.4-11.0)
[2017-09-25 08:40] LABS: POSITIVE COUNT NO; POSITIVE DIFFERENTIAL NO; POSITIVE MORPHOLOGY NO
[2017-09-25 08:57] LABS: Anion Gap 10 (5-15); BUN 17 mg/dL (7-18); BUN/Creat Ratio 17.2 RATIO (10-20); Chloride 105 mmol/L (98-107); Creatinine, Serum 0.99 mg/dL (0.55-1.02); EST Glomerular Filtration Rate 57 mL/min (>60); Est Glom Filt Rate - Afr Amer 69 mL/min (>60); Estimated Creatinine Clearance 35.85 ml/min; Glucose 135 mg/dL (74-106); Potassium 4.4 mmol/L (3.5-5.1); Sodium Level 142 mmol/L (136-145)
--- NOTE | 2017-09-25 11:47 | CL.D_ITS ---
Patient Name: GIOVANY BRANHAM Study Date: 09/25/2017 Performing: Donald Law MD Ht: 61.81 inches 157 cm : 1935 Wt: 141.1 lbs 64 kg Age: 82 Gender: female BSA: 1.64 PROCEDURE(S) PERFORMED SN27-BLO/COR/LV CLINICAL PROFILE AND INDICATIONS Indications: Stable Known CAD Heart Failure: None Stress/Imaging Stress/Image Study Performed: No CAD Presentations: No Sxs, no angina. CONCLUSIONS Severe triple-vessel disease involving a restenosis of a recently placed stent, mild left ventricular systolic dysfunction a calcified aorta and transient ST elevation noted during cardiac catheterizati on. The above resolved with intravenous nitroglycerin as well as heparin. Patient was noted to be c hest pain-free. RECOMMENDATIONS Surgery consult for coronary revascularization DESCRIPTION OF PROCEDURE The patient arrived to the procedure lab. The risks and benefits of the procedure as well as a full d escription of our services here and current unavailability of surgical backup were fully explained to the patient and/or their significant other prior to the catheterization. The Timeout was completed, verifying the correct patient and procedure. The patient's procedural site was prepped and draped in the usual fashion. Local anesthetic was given subcutaneously to right groin region with Lidocaine 2%. Using a modified Seldinger technique, arterial access was obtained via the right femoral artery, a 5 Fr sheath was inserted. Left Coronary Artery selective angiography was performed in multiple views u sing a 5 Fr. JL4 catheter. Right Coronary Artery selective angiography was then performed in multiple views using a 5 Fr. 3DRC (Alessandro) catheter. Left Ventriculography was performed in PURCELL projection using a 5 Fr. Pigtail catheter. LV to AO pullback pressures were then recorded.The arterial sheath wa s sutured in place with heparinized normal saline under pressure CORONARY ANGIOGRAPHY DOMINANCE: Right Dominant LEFT HEART ASSESSMENT Left Ventricular Ejection Fraction: by LV Gram 50 % Inferior Basal Hypokinesis - Severe Normal Left Ventricular systolic function LEFT MAIN: Mild calcification, Angiographically normal LEFT ANTERIOR DECENDING ARTERY: PROX LAD: Moderate luminal irregularities up to 50% MID LAD: 99 % Stenosis DIAGONAL 1: Ostial - 80 % Stenosis CIRCUMFLEX ARTERY: MID CIRC: 50 % Stenosis OM 1: Mid - 95 % Stenosis RIGHT CORONARY ARTERY: PROX RCA: Mild luminal irregularities less than 30% MID RCA: Instent restenosis 99 % RT PDA: Ostial - is occluded AORTIC ROOT: Calcified COMPLICATIONS No Complications PROCEDURE MEDICATIONS Versed 1 mg IV Oxygen: 2 L/min via nasal cannula Heparin 5000 unit(s) IV 09/25/2017 11:28:42 Nitro Tab 0.4 mg PO 09/25/2017 11:22:36 Nitro Tab 0.4 mg PO 09/25/2017 11:27:16 Nitro glycerin 25mg / 250ml D5W @ 10 mcg/min IV started 09/25/2017 11:28:27 SUMMARY OF HEMODYNAMIC DATA Time AIR REST ECG 09:06:14 AO 133/61 (90) SA 11:15:03 LV 183/9, 22 11:23:23 LV 192/10, 22 11:23:30 LV 158/5, 19 11:24:32 LV 136/9, 18 11:24:40 LVp 143/7, 19 11:24:55 AOp 145/74 (105) 11:25:00 ECG 11:28:02 AO 137/63 (89) 11:30:30 ECG 11:31:00 Signed By Donald Law MD On 09/25/2017 11:46:30 Donald Law MD
[2017-09-25 11:56] LABS: ACT Activated Clotting Time 208 sec (74-137)
--- NOTE | 2017-09-25 12:17 | CASEMGMT ---
MOO GALLAGHER Note: Insurance review for [employer] providers using [employer] website. [facility], [facility], [facility], [facility].
[2017-09-25 12:21] LABS: Bedside Glucose 128 mg/dL (70-110)
[2017-09-25 13:22] LABS: ACT Activated Clotting Time 175 sec (74-137)
[2017-09-25 15:30] VITALS: BP 136/68; PULSE 92; RESP 16; TEMP 36.8; O2SAT 95
[2017-09-25 15:51] VITALS: PULSE 90
[2017-09-25 16:15] VITALS: BP 133/70; PULSE 89; RESP 14; O2SAT 95
[2017-09-25 17:10] VITALS: BP 129/70; PULSE 87; RESP 16; O2SAT 95
[2017-09-25 18:10] VITALS: BP 132/77; PULSE 83; RESP 16; O2SAT 95
== END 2017-09-25 20:20 | disposition short-term general hospital (02) ==
LOC: CLSP 08:26 → PCU 15:37
PROVIDERS: Family Provider Nurse Practitioner; PCP Nurse Practitioner; Visit Provider Internal Medicine Cardiovascular Disease
DX: I25.10 Atherosclerotic heart disease of native coronary artery without angina pectoris (principal); T82.855A Stenosis of coronary artery stent, initial encounter; E11.9 Type 2 diabetes mellitus without complications; I10 Essential (primary) hypertension; E78.5 Hyperlipidemia, unspecified; Z79.84 Long term (current) use of oral hypoglycemic drugs; Z79.02 Long term (current) use of antithrombotics/antiplatelets; Z79.82 Long term (current) use of aspirin; Z79.899 Other long term (current) drug therapy; I25.2 Old myocardial infarction; Z95.1 Presence of aortocoronary bypass graft; Z95.5 Presence of coronary angioplasty implant and graft; Z87.891 Personal history of nicotine dependence
CPT/HCPCS: 36415; 80048; 82962; 85025; 85347; 93005; 93458; 99152; 99153; J7040; Q9967; A4216

== ENCOUNTER 2017-10-15 08:03 | Inpatient (IN) | payer MEDICARE, SELFPAY ==
[2017-06-19 08:53] VITALS: BMI 28.1
[2017-10-15] VITALS (15 sets, daily range): BP systolic 105–125; BP diastolic 58–67; PULSE 76–135; RESP 16–20; TEMP 36.5–37.2; O2SAT 93–99; BMI 27.7; BMI 27.1
--- NOTE | 2017-10-15 08:19 | EKG12_ITS ---
Test Reason : DIZZINESS Blood Pressure : / mmHG Vent. Rate : 133 BPM Atrial Rate : 147 BPM P-R Int : 000 ms QRS Dur : 084 ms QT Int : 310 ms P-R-T Axes : 000 061 260 degrees QTc Int : 461 ms Atrial fibrillation Nonspecific T wave abnormality Abnormal ECG Confirmed by ALEJANDRA BRUNER, ARJUN ([id number]), map editor MOLLY KELLY ([id number]) on 10/17/2017 3:15:56 PM Referred By: JOVAN Confirmed By:ARJUN ROBERTS MD
--- NOTE | 2017-10-15 08:23 | RAD_ITS ---
STUDY: X-RAY CHEST REASON FOR EXAM: Female, 82 years old. Chest pain and palpitations. TECHNIQUE: Single AP portable view of the chest. COMPARISON: June 17, 2017. FINDINGS: Cardiac monitoring leads are present. Patient has had a sternotomy. The lungs are hyperexpanded. There is questionable left basilar airspace disease and/or atelectasis. There appears to be small left-sided pleural effusion. There is mild cardiac enlargement. Normal mediastinum and lisset. Normal visualized pulmonary arteries. There is atherosclerotic calcification of the aortic arch with tortuosity. There is demineralization of the osseous structures. Normal visualized ribs, clavicles, and shoulders. There is no demonstrated abnormality of the visualized soft tissue structures of the upper abdomen. RAD/Chest 1 View (Portable) IMPRESSION: Cardiomegaly with a left-sided pleural effusion. This is new since the previous radiograph. Electronically Signed: Stephanie Cabrera MD at 8:46 EDT , Service support ,
--- NOTE | 2017-10-15 08:51 | ED.VISSUMM ---
- ER Visit Summary Date of Service: 10/15/17 Chief Complaint: [] Syncope this morning after using restroom status post cardiac bypass palpitations History of Present Illness: The patient is a 82 F [] about 1 week ago had cardiac bypass in [facility] she indicates she has been weak since her procedure decreased p.o. intake she went to the bathroom when she was finished she states she passed out at the leaning against the counter her family found her against the counter she did not fall strike her head she was able to mumble some words, it is not clear if she truly was completely unconscious at any point time she indicates she had no headache chest pain abdominal pain but diffuse generalized weakness she noticed palpitations, she is noted to be in A. fib heart rate 130 she has no history of A. fib by her reports, normal bowel bladder habits and again review of systems otherwise negative, she does report her cardiac bypass was uncomplicated she did not have an RI prior and to her knowledge she has never had an RI PE or DVT Physical Examination: [] Exam she is resting comforting the bed her heart rate on the monitor is 120-130 A. fib, she is awake and alert HEENT exams unremarkable the lungs sound clear the heart tones are regular minimal rales at the left base the abdomen soft nontender the sternotomy incision is intact without any signs of infection upper lower extremity unremarkable without cyanosis clubbing or edema moving all 4 extremities neurologically awake alert NIH 0 She assures me she did not injure herself with this episode she indicates she does not have a history of A. fib, at this time will proceed with rate control screening labs and likely admission He is not the patient never had chest pain or shortness of breath she is not complaining of chest pain or shortness of breath she has no history of DVT or PE She spontaneously converted back to sinus rhythm without any therapy, her vital signs remained stable her lab panels are generally unremarkable see those reports, her chest x-ray shows a moderate-sized left pleural effusion that was not present previously Given the new onset A. fib the syncope the recent cardiac bypass, the pleural effusion I believe she would benefit from admission further management I spoke with the hospitalist service though by to see her shortly for admission Test Results: [] Emergency Department Course and Treatment: [] Treatment Plan: [] Disposition: [] Admit stable Impression: [] A. fib RVR new onset, status post cardiac bypass, left pleural effusion syncope This note was generated with [employer] dictation software. It may contain incorrect words, spelling, and punctuation that were not noted in review of the chart prior to signing ED Disposition - Plan for ED Patient: Chief Complaint: Palpitations Referrals: Chelita Pascual [Primary Care Provider] -
--- NOTE | 2017-10-15 08:54 | ED.DCSUM_ITS ---
- ER Visit Summary Date of Service: 10/15/17 Chief Complaint: [] Syncope this morning after using restroom status post cardiac bypass palpitations History of Present Illness: The patient is a 82 F [] about 1 week ago had cardiac bypass in [facility] she indicates she has been weak since her procedure decreased p.o. intake she went to the bathroom when she was finished she states she passed out at the leaning against the counter her family found her against the counter she did not fall strike her head she was able to mumble some words, it is not clear if she truly was completely unconscious at any point time she indicates she had no headache chest pain abdominal pain but diffuse generalized weakness she noticed palpitations, she is noted to be in A. fib heart rate 130 she has no history of A. fib by her reports, normal bowel bladder habits and again review of systems otherwise negative, she does report her cardiac bypass was uncomplicated she did not have an NE prior and to her knowledge she has never had an NE PE or DVT Physical Examination: [] Exam she is resting comforting the bed her heart rate on the monitor is 120-130 A. fib, she is awake and alert HEENT exams unremarkable the lungs sound clear the heart tones are regular minimal rales at the left base the abdomen soft nontender the sternotomy incision is intact without any signs of infection upper lower extremity unremarkable without cyanosis clubbing or edema moving all 4 extremities neurologically awake alert NIH 0 She assures me she did not injure herself with this episode she indicates she does not have a history of A. fib, at this time will proceed with rate control screening labs and likely admission He is not the patient never had chest pain or shortness of breath she is not complaining of chest pain or shortness of breath she has no history of DVT or PE She spontaneously converted back to sinus rhythm without any therapy, her vital signs remained stable her lab panels are generally unremarkable see those reports, her chest x-ray shows a moderate-sized left pleural effusion that was not present previously Given the new onset A. fib the syncope the recent cardiac bypass, the pleural effusion I believe she would benefit from admission further management I spoke with the hospitalist service though by to see her shortly for admission Test Results: [] Emergency Department Course and Treatment: [] Treatment Plan: [] Disposition: [] Admit stable Impression: [] A. fib RVR new onset, status post cardiac bypass, left pleural effusion syncope This note was generated with [employer] dictation software. It may contain incorrect words, spelling, and punctuation that were not noted in review of the chart prior to signing ED Disposition - Plan for ED Patient: Chief Complaint: Palpitations Referrals: Chelita Pascual [Primary Care Provider] -
[2017-10-15] MEDS: Aspirin 81 MG TAB.CHEW 324 MG PO (09:40)
[2017-10-15 10:25] LABS: Anion Gap 7 (5-15); BUN 19 mg/dL (7-18); BUN/Creat Ratio 19.3 RATIO (10-20); Chloride 105 mmol/L (98-107); Creatinine, Serum 0.99 mg/dL (0.55-1.02); EST Glomerular Filtration Rate 58 mL/min (>60); Est Glom Filt Rate - Afr Amer 70 mL/min (>60); Glucose 119 mg/dL (74-106); Potassium 5.6 mmol/L (3.5-5.1); Sodium Level 136 mmol/L (136-145)
[2017-10-15] MEDS: 0.9% Normal Saline 1,000 ML 150 ML IV (10:41)
[2017-10-15 10:56] LABS: Absolute Lymphocyte Count 0.74 X10^3/ul (0.83-4.51); Absolute Neutrophil Count 13.3 X10^3/uL (2.0-7.7); Basophil# 0.02 X10^3/uL; Basophil% 0.1 % (0-1); Eosinophil# 0.05 X10^3/uL; Eosinophils% 0.3 % (0-5); Hematocrit 27.9 % (37-47); Hemoglobin 8.6 g/dl (12.0-15.0); Lymphocyte # 0.74 X10^3/ul (4.0); Mean Corp Hgb Conc 30.8 g/gl (32-36); Mean Corpuscular Hgb 28.8 pg (27.0-32.0); Mean Corpuscular Volume 93.3 fL (81-99); Mean Platelet Vol. 8.8 fl (6.2-12.0); Monocyte% 4.7 % (0-10); Neutrophil # 13.27 X10^3/uL (2.7-7.7); Neutrophil % 89.6 % (47-70); POSITIVE COUNT NO; POSITIVE DIFFERENTIAL NO; POSITIVE MORPHOLOGY NO; Platelet Count 322 K/mm3 (150-450); RBC Distribution Width CV 15.9 % (11.6-14.6); RBC Distribution Width SD 53.6 fl (35.1-43.9); Red Blood Count 2.99 M/mm3 (4.2-5.4); White Blood Count 14.8 K/mm3 (4.4-11.0)
--- NOTE | 2017-10-15 11:47 | ED.RN ---
pt converted out of afib on her own, lopressor not given
--- NOTE | 2017-10-15 11:59 | PCM.HP.STD ---
Problem List (1) Near syncope Status: Acute (2) Anemia Status: Acute (3) Atrial fibrillation with RVR Status: Acute (4) Status post coronary artery bypass graft Status: Acute (5) Coronary artery disease Status: Chronic (6) Type 2 diabetes mellitus without complications Status: Chronic (7) Hyperlipidemia Status: Chronic Qualifiers: (8) Hypertension Status: Chronic Qualifiers: (9) H/O right coronary artery stent placement Status: Chronic Comment: PCI-BMS-Mid and Prox RCA w/ 2.25 x 18 mm, 2.25 x 14 mm, 2.25 x 12 mm Integrity and 2.5 x 16 mm Melodieel 06/17/2017 History of Present Illness Date of Admission: 10/15/17 Chief Complaint: Near syncope. The patient is a 82 year old F with past medical history as mentioned above who underwent CABG surgery a few days ago presented to the emergency department because of near syncope. This morning, patient woke up, went to the bathroom and she had a bowel movement and shortly after, she feels dizzy when she was standing, lightheaded and she was about to pass out. She believes that she did not lose her consciousness. mentioned that she was cold and clammy and he called the squad. At this time, she feels better, no dizziness or lightheadedness. She denied chest pain or shortness of breath. She denied cough or sputum production. She denies fever chills. Her daughter mentioned that she has been very weak, tired since she was discharged from [facility] this past Monday after she underwent CABG. On September 25, 2018, she underwent cardiac catheterization that revealed severe triple-vessel disease with restenosis of a recently placed stent and she was sent to [facility] for CABG. She underwent CABG and her postoperative course was uneventful and she was discharged home this past Monday. She has history of type 2 diabetes mellitus which seemed to be under control with metformin and Victoza. She has history of hypertension and also seemed to be under control with Coreg and lisinopril. In the emergency room, patient was found to be in A. fib with RVR, heart rate was in the 130s. Blood pressure was stable. She converted back to sinus rhythm spontaneously without interventions. Her routine blood work is remarkable for leukocytosis, anemia with hemoglobin of 8.6 g/dL and potassium of 5.6. Her troponin was negative. EKG revealed A. fib with RVR, no acute ischemic changes. At this time, she is in sinus rhythm on telemetry. Chest x-ray revealed small left pleural effusion. She is being admitted for new onset A. fib with RVR, anemia, small left pleural effusion and mild hyperkalemia. Past Medical History Past Medical History (Chronic Problems): Chronic Problems (Last Updated 10/15/17 @ 11:58 by Jae Goldberg MD) Coronary artery disease (Chronic) Type 2 diabetes mellitus without complications (Chronic) Hyperlipidemia (Chronic) Hypertension (Chronic) H/O right coronary artery stent placement (Chronic ~06/17/17) PCI-BMS-Mid and Prox RCA w/ 2.25 x 18 mm, 2.25 x 14 mm, 2.25 x 12 mm Integrity and 2.5 x 16 mm Rebel 06/17/2017 Medical History: Medical History (Last Updated 10/15/17 @ 11:58 by Jae Goldberg MD) Type 2 diabetes mellitus without complications (Chronic) E11.9 Hyperlipidemia (Chronic) E78.5 Hypertension (Chronic) I10 Allergies No Known Allergies Allergy (Verified 10/15/17 08:06) Home Medications: Ambulatory Orders Medication Instructions Recorded Allopurinol [Zyloprim] 300 mg PO DAILY PRN 06/17/17 Liraglutide [Victoza] 1.8 mg SQ DAILY 06/17/17 Metformin(XR) [Glucophage Xr] 500 mg PO DAILY 06/17/17 Aspirin E.C. [Ecotrin] 81 mg PO DAILY@0800 tab 06/20/17 Atorvastatin Calcium [Lipitor] 40 mg PO QHS #30 tab 06/20/17 Carvedilol [Coreg (Beta Juarez)] 6.25 mg PO BID #60 tab 06/20/17 Lisinopril [Zestril] 5 mg PO DAILY #30 tab 06/20/17 clopidogrel 75 mg tablet 75 mg PO QDAY #90 tab 07/19/17 Surgical History: Surgical History (Last Updated 10/15/17 @ 11:58 by Jae Goldberg MD) H/O right coronary artery stent placement (Chronic) Onset Date: ~06/17/17 Z95.5 PCI-BMS-Mid and Prox RCA w/ 2.25 x 18 mm, 2.25 x 14 mm, 2.25 x 12 mm Integrity and 2.5 x 16 mm Randy 06/17/2017 History of carpal tunnel release Z98.890 History of cataract surgery Z98.49 History of left heart catheterization Onset Date: ~06/17/17 Z98.890 Surgical History: cataract, coronary bypass surgery, - - Carpal tunnel surgery Psychiatric History: No pertinent psych hx FORESTRY SUPPORT SPECIALIST History: No pertinent FORESTRY SUPPORT SPECIALIST history Lives: Spouse/ Significant Other Smoking Status: Former smoker Alcohol: None Drugs: None - *Family History Maternal Family History: Family History (Last Reviewed 09/22/17 @ 10:03 by Donald Law MD) Mother Breast cancer History Items: Cancer - Breast cancer Paternal Family History: Family History (Last Reviewed 09/22/17 @ 10:03 by Donald Law MD) Mother Breast cancer History Items: No pertinent history Review of Systems Constitutional: Reports: Anorexia, Weakness, Fatigue. Denies: Chills, Fever Eyes: Denies: Blurred vision, Double vision, Drainage, Redness, Vision Change HEENT: Denies: Difficulty Hearing, Ear Pain, Eye Pain, Nasal Congestion, Sore Throat Cardiovascular: Reports: Light Headedness. Denies: Chest Pain, Chest Pressure, Chest Tightness, Heaviness, Palpitations, Syncope Respiratory: Denies: Cough, Pleuritic Pain, Shortness of Breath, Sputum production, Wheezing Gastrointestinal: Denies: Abdominal Pain, Constipation, Diarrhea, Hematochezia, Nausea, Melena, Vomiting Genitourinary: Denies: Dysuria, Frequency, Hematuria Musculoskeletal: Denies: Arm Pain, Back Pain, Foot Pain Skin: Denies: Dryness, Rash Neurological: Denies: Balance problems, Double vision, Change in Speech, Confusion, Headaches, Incoordination, Numbness, Tingling Psychiatric: Denies: Anxiety, Depression Endocrine: Denies: Change in Body Habitus, Polydipsia VTE Information - Inpt Only VTE Present on Admission: No VTE Mechan Device Prophylaxis: None VTE Pharm Prophylaxis ordered?: Yes Patient Problems: Active and Suspected Problems (Last Updated 10/15/17 @ 11:58 by Jae Goldberg MD) Near syncope (Acute) Anemia (Acute) Atrial fibrillation with RVR (Acute) Status post coronary artery bypass graft (Acute) - Physical Exam General: Alert, Oriented x3, Cooperative, No apparent distress HEENT: Atraumatic, PERRLA, EOMI, Normocephalic Oral: Moist Mucosa, No Gingival or Mucosal Lesions/ Ulcerations Neck: Supple, No JVD, Negative Carotid Bruits, Trachea Midline, Thyroid Normal Size and Texture Lungs: No rhonchi, No wheeze, No rales, Diminished, - - Decreased breath sounds at the bases, more left base, poor effort. Cardiovascular: Regular rate, Regular Rhythm, Normal S1, Normal S2, PMI Normal Abdomen: Bowel Sounds Present, Soft, Non Tender, Non-Distended, No Hepato-splenomegaly Extremities: No clubbing, No cyanosis, Edema - Trace edema on the left leg. Skin: No rashes, No breakdown Lymphatic: No Cervical, Supraclavicular, or Inguinal Adenopathy Neurological: Cranial nerves II-XII grossly intact, Motor Exam 5/5 strength throughout Psych/Mental Status: Normal Affect, Appropriate, Alert and oriented to time, place, person, mood and affect Vital Signs Temp Pulse Resp BP Pulse Ox 97.7 F L 83 18 113/63 99 10/15/17 08:04 10/15/17 11:46 10/15/17 11:46 10/15/17 11:46 10/15/17 11:46 Oxygen Flow Rate (L/min) 2 Oxygen Delivery Method Nasal Cannula Weight: 146 lb 13.246 oz Body Mass Index (BMI) 27.7 Laboratory Tests Past 24 Hrs 10/15/17 10/15/17 10/15/17 09:50 09:50 10:50 WBC Cancelled 14.8 H Corrected WBC Cancelled RBC Cancelled 2.99 L Hgb Cancelled 8.6 L Hct Cancelled 27.9 L MCV Cancelled 93.3 MCH Cancelled 28.8 MCHC Cancelled 30.8 L RDW Cancelled 15.9 H RDW Differential Cancelled 53.6 H Plt Count Cancelled 322 MPV Cancelled 8.8 Immature Gran % (Auto) Cancelled 0.300 Neut % (Auto) Cancelled 89.6 H Lymph % (Auto) Cancelled 5.0 L [place] % (Auto) Cancelled 4.7 Eos % (Auto) Cancelled 0.3 Baso % (Auto) Cancelled 0.1 Immature Gran # (Auto) Cancelled Absolute Neuts (auto) Cancelled 13.3 H Absolute Lymphs (auto) Cancelled 0.74 L Absolute Monos (auto) Cancelled Total Counted Cancelled Not Reportable Neutrophils % (Manual) Cancelled Band Neutrophils % Cancelled Lymphocytes % (Manual) Cancelled Monocytes % (Manual) Cancelled Eosinophils % (Manual) Cancelled Basophils % (Manual) Cancelled Metamyelocytes % Cancelled Myelocytes % Cancelled Promyelocytes % Cancelled Blast Cells % Cancelled Plasma Cell % (Manual) Cancelled Other Cells % Cancelled Lymphocytes # Cancelled Nucleated RBCs/100 WBC Cancelled Differential Comment Cancelled Diff Path Review Cancelled Hypersegmented Neuts Cancelled Atypical Lymphocytes Cancelled Reactive Lymphocytes Cancelled Smudge Cells Cancelled Eosinophilia # Cancelled Basophilia # Cancelled Toxic Granulation Cancelled Dohle Bodies Cancelled Deon Rods Cancelled Platelet Estimate Cancelled Plt Morphology Comment Cancelled RBC Morphology Cancelled Polychromasia Cancelled Hypochromasia Cancelled Poikilocytosis Cancelled Basophilic Stippling Cancelled Anisocytosis Cancelled Microcytosis Cancelled Macrocytosis Cancelled Spherocytes Cancelled Sickle Cells Cancelled Target Cells Cancelled Tear Drop Cells Cancelled Ovalocytes Cancelled Stomatocytes Cancelled Rojas-[place] Bodies Cancelled [place] Cells Cancelled Bite Cells Cancelled Acanthocytes (Spur) Cancelled Rouleaux Cancelled Schistocytes Cancelled Sodium 136 Potassium 5.6 H Chloride 105 Carbon Dioxide 24.0 Anion Gap 7 BUN 19 H Creatinine 0.99 Estim Creat Clear Calc 34.20 Est GFR (MDRD) Af Amer 70 Est GFR (MDRD) Non-Af 58 L BUN/Creatinine Ratio 19.3 Glucose 119 H Calcium 9.0 Troponin I 0.023 Clinical Impression(s) from Imaging Studies Chest X-Ray 10/15/17 08:23 IMPRESSION: Cardiomegaly with a left-sided pleural effusion. This is new since the previous radiograph. Electronically Signed: Stephanie Cabrera MD at 8:46 EDT , Service support , Assessment/Plan All Active Problems (Last Updated 10/15/17 @ 11:58 by Jae Goldberg MD) Near syncope (Acute) Anemia (Acute) Atrial fibrillation with RVR (Acute) Status post coronary artery bypass graft (Acute) This is an 82 years old female patient presented to the emergency room because of near syncope and she was found to have new onset A. fib with RVR as well as anemia, mild hyperkalemia and new small left pleural effusion. She had a recent history of CABG a few days ago. #1 new onset A. fib with RVR: In context of recent history of CABG. Patient converted back to sinus rhythm without interventions. EKG reviewed, revealed A. fib with RVR, no acute ischemic changes. On telemetry, she is in sinus rhythm now. Her vital signs are stable. Troponin is negative. Plan: Admit to PCU, monitor worker, serial cardiac enzymes, repeat EKG tomorrow morning, check serum magnesium, TSH, cardiology consult, continue Coreg for rate control. Her [id number] score is 5, she is at high risk for stroke and she is a candidate for anticoagulation. I would hold off starting her on anticoagulation because of recent history of CABG, will discuss with cardiology. #2 near syncope: Probably multifactorial secondary to A. fib with RVR, poor oral intake, anorexia and dehydration as well as recent major surgery. At this time, her vital signs stabilized. Plan for IV fluids, orthostatic vitals. #3 mild hyperkalemia: Potassium is 5.6. No EKG changes related to hyperkalemia. Plan for IV fluids, repeat potassium at 6 PM today, repeat BMP tomorrow morning. #4 anemia: This is new, acute and it is probably due to blood loss during surgery as well as poor oral intake. Patient denies any evidence of bleeding from her body orifices. It is microcytic anemia. Plan: Serum iron, ferritin, TIBC, transferrin, stool for occult blood. At this time, no indication for transfusion. #5 left pleural effusion: This is new compared to most recent chest x-ray. It is probably due to atelectasis and postsurgical changes secondary to recent CABG. At this time, I doubt pneumonia. Patient denies any cough or sputum reduction, denies fever. She does have mild leukocytosis which seems to be reactive. Plan: Incentive sponsor, chest physiotherapy, deep breathing. At this time, no indication for antibiotics. #6 recent CABG: She underwent cardiac catheterization on September 25, 2017 that revealed severe triple-vessel disease, went for CABG few days ago she was discharged from [facility] this past Monday. EKG reviewed. Troponin is negative. Midline surgical incisions are clean and dry. Continue aspirin, statins, Plavix, Coreg and lisinopril. #7 CAD status post stents and recent CABG: Stable, plan as above. Continue aspirin, Plavix, statins, Coreg and lisinopril. #8 hypertension: Blood pressure stable, continue Coreg and lisinopril. #9 type 2 diabetes mellitus: ADA diet, Accu-Cheks, insulin sliding scale, continue metformin and Victoza. #10 hyperlipidemia: Continue statins. #11 DVT prophylaxis: Subcu Lovenox. This note was generated with [employer] dictation software. It may contain incorrect words, spelling, and punctuation that were not noted in checking the note before signing. Code Visit Inpatient E&M: 27232 Init Hosp L3
--- NOTE | 2017-10-15 12:04 | NURSING ---
CALLED DAVID IN ER OKAY TO BRING PT UP. WANTED ME TO CALL [facility], TALKED WITH MICHAEL AND ЕЛЕНА TO SEND PT UP.
--- NOTE | 2017-10-15 12:13 | HP.PCM_ITS ---
Problem List (1) Near syncope Status: Acute (2) Anemia Status: Acute (3) Atrial fibrillation with RVR Status: Acute (4) Status post coronary artery bypass graft Status: Acute (5) Coronary artery disease Status: Chronic (6) Type 2 diabetes mellitus without complications Status: Chronic (7) Hyperlipidemia Status: Chronic Qualifiers: (8) Hypertension Status: Chronic Qualifiers: (9) H/O right coronary artery stent placement Status: Chronic Comment: PCI-BMS-Mid and Prox RCA w/ 2.25 x 18 mm, 2.25 x 14 mm, 2.25 x 12 mm Integrity and 2.5 x 16 mm Melodieel 06/17/2017 History of Present Illness Date of Admission: 10/15/17 Chief Complaint: Near syncope. The patient is a 82 year old F with past medical history as mentioned above who underwent CABG surgery a few days ago presented to the emergency department because of near syncope. This morning, patient woke up, went to the bathroom and she had a bowel movement and shortly after, she feels dizzy when she was standing, lightheaded and she was about to pass out. She believes that she did not lose her consciousness. mentioned that she was cold and clammy and he called the squad. At this time, she feels better, no dizziness or lightheadedness. She denied chest pain or shortness of breath. She denied cough or sputum production. She denies fever chills. Her daughter mentioned that she has been very weak, tired since she was discharged from [facility] this past Monday after she underwent CABG. On September 25, 2018, she underwent cardiac catheterization that revealed severe triple-vessel disease with restenosis of a recently placed stent and she was sent to [facility] for CABG. She underwent CABG and her postoperative course was uneventful and she was discharged home this past Monday. She has history of type 2 diabetes mellitus which seemed to be under control with metformin and Victoza. She has history of hypertension and also seemed to be under control with Coreg and lisinopril. In the emergency room, patient was found to be in A. fib with RVR, heart rate was in the 130s. Blood pressure was stable. She converted back to sinus rhythm spontaneously without interventions. Her routine blood work is remarkable for leukocytosis, anemia with hemoglobin of 8.6 g/dL and potassium of 5.6. Her troponin was negative. EKG revealed A. fib with RVR, no acute ischemic changes. At this time, she is in sinus rhythm on telemetry. Chest x-ray revealed small left pleural effusion. She is being admitted for new onset A. fib with RVR, anemia, small left pleural effusion and mild hyperkalemia. Past Medical History Past Medical History (Chronic Problems): Chronic Problems (Last Updated 10/15/17 @ 11:58 by Jae Goldberg MD) Coronary artery disease (Chronic) Type 2 diabetes mellitus without complications (Chronic) Hyperlipidemia (Chronic) Hypertension (Chronic) H/O right coronary artery stent placement (Chronic ~06/17/17) PCI-BMS-Mid and Prox RCA w/ 2.25 x 18 mm, 2.25 x 14 mm, 2.25 x 12 mm Integrity and 2.5 x 16 mm Rebel 06/17/2017 Medical History: Medical History (Last Updated 10/15/17 @ 11:58 by Jae Goldberg MD) Type 2 diabetes mellitus without complications (Chronic) E11.9 Hyperlipidemia (Chronic) E78.5 Hypertension (Chronic) I10 Allergies No Known Allergies Allergy (Verified 10/15/17 08:06) Home Medications: Ambulatory Orders Medication Instructions Recorded Allopurinol [Zyloprim] 300 mg PO DAILY PRN 06/17/17 Liraglutide [Victoza] 1.8 mg SQ DAILY 06/17/17 Metformin(XR) [Glucophage Xr] 500 mg PO DAILY 06/17/17 Aspirin E.C. [Ecotrin] 81 mg PO DAILY@0800 tab 06/20/17 Atorvastatin Calcium [Lipitor] 40 mg PO QHS #30 tab 06/20/17 Carvedilol [Coreg (Beta Juarez)] 6.25 mg PO BID #60 tab 06/20/17 Lisinopril [Zestril] 5 mg PO DAILY #30 tab 06/20/17 clopidogrel 75 mg tablet 75 mg PO QDAY #90 tab 07/19/17 Surgical History: Surgical History (Last Updated 10/15/17 @ 11:58 by Jae Goldberg MD) H/O right coronary artery stent placement (Chronic) Onset Date: ~06/17/17 Z95.5 PCI-BMS-Mid and Prox RCA w/ 2.25 x 18 mm, 2.25 x 14 mm, 2.25 x 12 mm Integrity and 2.5 x 16 mm Randy 06/17/2017 History of carpal tunnel release Z98.890 History of cataract surgery Z98.49 History of left heart catheterization Onset Date: ~06/17/17 Z98.890 Surgical History: cataract, coronary bypass surgery, - - Carpal tunnel surgery Psychiatric History: No pertinent psych hx 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 Denies: Chills, Fever Eyes: Denies: Blurred vision, Double vision, Drainage, Redness, Vision Change HEENT: Denies: Difficulty Hearing, Ear Pain, Eye Pain, Nasal Congestion, Sore Throat Cardiovascular: Reports: Light Headedness. Denies: Chest Pain, Chest Pressure, Chest Tightness, Heaviness, Palpitations, Syncope Respiratory: Denies: Cough, Pleuritic Pain, Shortness of Breath, Sputum production, Wheezing Gastrointestinal: Denies: Abdominal Pain, Constipation, Diarrhea, Hematochezia, Nausea, Melena, Vomiting Genitourinary: Denies: Dysuria, Frequency, Hematuria Musculoskeletal: Denies: Arm Pain, Back Pain, Foot Pain Skin: Denies: Dryness, Rash Neurological: Denies: Balance problems, Double vision, Change in Speech, Confusion, Headaches, Incoordination, Numbness, Tingling Psychiatric: Denies: Anxiety, Depression Endocrine: Denies: Change in Body Habitus, Polydipsia VTE Information - Inpt Only VTE Present on Admission: No VTE Mechan Device Prophylaxis: None VTE Pharm Prophylaxis ordered?: Yes Patient Problems: Active and Suspected Problems (Last Updated 10/15/17 @ 11:58 by Jae Goldberg MD) Near syncope (Acute) Anemia (Acute) Atrial fibrillation with RVR (Acute) Status post coronary artery bypass graft (Acute) - Physical Exam General: Alert, Oriented x3, Cooperative, No apparent distress HEENT: Atraumatic, PERRLA, EOMI, Normocephalic Oral: Moist Mucosa, No Gingival or Mucosal Lesions/ Ulcerations Neck: Supple, No JVD, Negative Carotid Bruits, Trachea Midline, Thyroid Normal Size and Texture Lungs: No rhonchi, No wheeze, No rales, Diminished, - - Decreased breath sounds at the bases, more left base, poor effort. Cardiovascular: Regular rate, Regular Rhythm, Normal S1, Normal S2, PMI Normal Abdomen: Bowel Sounds Present, Soft, Non Tender, Non-Distended, No Hepato- splenomegaly Extremities: No clubbing, No cyanosis, Edema - Trace edema on the left leg. Skin: No rashes, No breakdown Lymphatic: No Cervical, Supraclavicular, or Inguinal Adenopathy Neurological: Cranial nerves II-XII grossly intact, Motor Exam 5/5 strength throughout Psych/Mental Status: Normal Affect, Appropriate, Alert and oriented to time, place, person, mood and affect Vital Signs Temp Pulse Resp BP Pulse Ox 97.7 F L 83 18 113/63 99 10/15/17 08:04 10/15/17 11:46 10/15/17 11:46 10/15/17 11:46 10/15/17 11:46 Oxygen Flow Rate (L/min) 2 Oxygen Delivery Method Nasal Cannula Weight: 146 lb 13.246 oz Body Mass Index (BMI) 27.7 Laboratory Tests Past 24 Hrs 10/15/17 10/15/17 10/15/17 09:50 09:50 10:50 WBC Cancelled 14.8 H Corrected WBC Cancelled RBC Cancelled 2.99 L Hgb Cancelled 8.6 L Hct Cancelled 27.9 L MCV Cancelled 93.3 MCH Cancelled 28.8 MCHC Cancelled 30.8 L RDW Cancelled 15.9 H RDW Differential Cancelled 53.6 H Plt Count Cancelled 322 MPV Cancelled 8.8 Immature Gran % (Auto) Cancelled 0.300 Neut % (Auto) Cancelled 89.6 H Lymph % (Auto) Cancelled 5.0 L [place] % (Auto) Cancelled 4.7 Eos % (Auto) Cancelled 0.3 Baso % (Auto) Cancelled 0.1 Immature Gran # (Auto) Cancelled Absolute Neuts (auto) Cancelled 13.3 H Absolute Lymphs (auto) Cancelled 0.74 L Absolute Monos (auto) Cancelled Total Counted Cancelled Not Reportable Neutrophils % (Manual) Cancelled Band Neutrophils % Cancelled Lymphocytes % (Manual) Cancelled Monocytes % (Manual) Cancelled Eosinophils % (Manual) Cancelled Basophils % (Manual) Cancelled Metamyelocytes % Cancelled Myelocytes % Cancelled Promyelocytes % Cancelled Blast Cells % Cancelled Plasma Cell % (Manual) Cancelled Other Cells % Cancelled Lymphocytes # Cancelled Nucleated RBCs/100 WBC Cancelled Differential Comment Cancelled Diff Path Review Cancelled Hypersegmented Neuts Cancelled Atypical Lymphocytes Cancelled Reactive Lymphocytes Cancelled Smudge Cells Cancelled Eosinophilia # Cancelled Basophilia # Cancelled Toxic Granulation Cancelled Dohle Bodies Cancelled Deon Rods Cancelled Platelet Estimate Cancelled Plt Morphology Comment Cancelled RBC Morphology Cancelled Polychromasia Cancelled Hypochromasia Cancelled Poikilocytosis Cancelled Basophilic Stippling Cancelled Anisocytosis Cancelled Microcytosis Cancelled Macrocytosis Cancelled Spherocytes Cancelled Sickle Cells Cancelled Target Cells Cancelled Tear Drop Cells Cancelled Ovalocytes Cancelled Stomatocytes Cancelled Rojas-Stafford Bodies Cancelled Nithin Cells Cancelled Bite Cells Cancelled Acanthocytes (Spur) Cancelled Rouleaux Cancelled Schistocytes Cancelled Sodium 136 Potassium 5.6 H Chloride 105 Carbon Dioxide 24.0 Anion Gap 7 BUN 19 H Creatinine 0.99 Estim Creat Clear Calc 34.20 Est GFR (MDRD) Af Amer 70 Est GFR (MDRD) Non-Af 58 L BUN/Creatinine Ratio 19.3 Glucose 119 H Calcium 9.0 Troponin I 0.023 Clinical Impression(s) from Imaging Studies Chest X-Ray 10/15/17 08:23 IMPRESSION: Cardiomegaly with a left-sided pleural effusion. This is new since the previous radiograph. Electronically Signed: Stephanie Cabrera MD at 8:46 EDT , Service support , Assessment/Plan All Active Problems (Last Updated 10/15/17 @ 11:58 by Jae Goldberg MD) Near syncope (Acute) Anemia (Acute) Atrial fibrillation with RVR (Acute) Status post coronary artery bypass graft (Acute) This is an 82 years old female patient presented to the emergency room because of near syncope and she was found to have new onset A. fib with RVR as well as anemia, mild hyperkalemia and new small left pleural effusion. She had a recent history of CABG a few days ago. #1 new onset A. fib with RVR: In context of recent history of CABG. Patient converted back to sinus rhythm without interventions. EKG reviewed, revealed A. fib with RVR, no acute ischemic changes. On telemetry, she is in sinus rhythm now. Her vital signs are stable. Troponin is negative. Plan: Admit to PCU, residential monitor, serial cardiac enzymes, repeat EKG tomorrow morning, check serum magnesium, TSH, cardiology consult, continue Coreg for rate control. Her [id number] score is 5, she is at high risk for stroke and she is a candidate for anticoagulation. I would hold off starting her on anticoagulation because of recent history of CABG, will discuss with cardiology. #2 near syncope: Probably multifactorial secondary to A. fib with RVR, poor oral intake, anorexia and dehydration as well as recent major surgery. At this time, her vital signs stabilized. Plan for IV fluids, orthostatic vitals. #3 mild hyperkalemia: Potassium is 5.6. No EKG changes related to hyperkalemia. Plan for IV fluids, repeat potassium at 6 PM today, repeat BMP tomorrow morning. #4 anemia: This is new, acute and it is probably due to blood loss during surgery as well as poor oral intake. Patient denies any evidence of bleeding from her body orifices. It is microcytic anemia. Plan: Serum iron, ferritin, TIBC, transferrin, stool for occult blood. At this time, no indication for transfusion. #5 left pleural effusion: This is new compared to most recent chest x-ray. It is probably due to atelectasis and postsurgical changes secondary to recent CABG. At this time, I doubt pneumonia. Patient denies any cough or sputum reduction, denies fever. She does have mild leukocytosis which seems to be reactive. Plan: Incentive sponsor, chest physiotherapy, deep breathing. At this time, no indication for antibiotics. #6 recent CABG: She underwent cardiac catheterization on September 25, 2017 that revealed severe triple-vessel disease, went for CABG few days ago she was discharged from [facility] this past Monday. EKG reviewed. Troponin is negative. Midline surgical incisions are clean and dry. Continue aspirin, statins, Plavix, Coreg and lisinopril. #7 CAD status post stents and recent CABG: Stable, plan as above. Continue aspirin, Plavix, statins, Coreg and lisinopril. #8 hypertension: Blood pressure stable, continue Coreg and lisinopril. #9 type 2 diabetes mellitus: ADA diet, Accu-Cheks, insulin sliding scale, continue metformin and Victoza. #10 hyperlipidemia: Continue statins. #11 DVT prophylaxis: Subcu Lovenox. This note was generated with [employer] dictation software. It may contain incorrect words, spelling, and punctuation that were not noted in checking the note before signing. Code Visit Inpatient E&M: 88220 Init Hosp L3
[2017-10-15 13:34] LABS: International Normalized Ratio 1.2; Prothrombin Time (Protime)PT. 14.8 SECONDS (11.7-14.9)
[2017-10-15 14:08] LABS: Ferritin 387 ng/mL (8-252); Iron 27 ug/dL (50-170); Iron Binding Capacity,Total 213 ug/dL (250-450); Magnesium 2.5 mg/dL (1.6-2.6); PERCENT IRON SATURATION 12.7 % (15.0-55.0); Thyroid Stim Hormone (TSH) 1.28 uIU/mL (0.358-3.74)
[2017-10-15] MEDS: Albuterol 2.5 MG/3 ML VIAL.NEB. INHALATION ×2 (14:36→19:45)
--- NOTE | 2017-10-15 14:42 | CON.PCM_ITS ---
Problem List (1) Atrial fibrillation with RVR Status: Acute (2) Near syncope Status: Acute (3) Coronary artery disease Status: Chronic (4) Myocardial infarction, inferior wall Status: Chronic (5) H/O right coronary artery stent placement Status: Chronic Comment: PCI-BMS-Mid and Prox RCA w/ 2.25 x 18 mm, 2.25 x 14 mm, 2.25 x 12 mm Integrity and 2.5 x 16 mm Rebel 06/17/2017 (6) Status post coronary artery bypass graft Status: Acute (7) Hyperlipidemia Status: Chronic Qualifiers: (8) Hypertension Status: Chronic Qualifiers: (9) Type 2 diabetes mellitus without complications Status: Chronic (10) Anemia Status: Acute Reason for Consult Date of Consultation: 10/15/17 History of Present Illness: The patient is a 82 year old white female with a past cardiovascular history which is now include concerns of a recent diagnosis of CAD, acute inferior AK/ STEMI, status post RCA PTCA/stent, status post repeat diagnostic cardiac catheterization demonstrating concerns of in-stent restenosis, now status post subsequent CABG at [facility] (details unknown) who is referred for concerns of atrial fibrillation with rapid ventricular response and near syncope superimposed upon chronic history of hyperlipidemia, hypertension, diabetes mellitus and postoperative anemia. The patient notes that she has not been eating well since released from the hospital last week. She had not had any other new acute chest discomfort or difficulty breathing episodes. There has been no acute orthopnea or PND. She has had mild edema of the left ankle area. She has denied any obvious palpitations. This morning while standing in her bathroom she became very dizzy and lightheaded and felt as if she may lose consciousness. The EMS was summoned. She was reported as being in atrial fibrillation with rapid ventricular response. She was brought to the emergency department for further evaluation. Her ECG there demonstrated atrial fibrillation with rapid ventricular response with nonspecific T-wave abnormality. She was subsequently noted to have spontaneous conversion to sinus rhythm. Based on the follow-up ECG showed sinus rhythm with low voltage QRS especially in the limb leads with nonspecific T-wave abnormality. She was subsequently placed in the PCU for further evaluation and care. She notes overall she is feeling somewhat better at this time. She was not sensing her change in her rate or rhythm earlier this day. She has not sensed a change since returning to sinus rhythm. She does not believe she has had this diagnosis in the past. She did have troponin I levels ?2. They have been negative. [] Past Medical History Allergies/Adverse Reactions: Allergies No Known Allergies Allergy (Verified 10/15/17 08:06) Home Medications: Ambulatory Orders Medication Instructions Recorded Allopurinol [Zyloprim] 300 mg PO DAILY PRN 06/17/17 Liraglutide [Victoza] 1.8 mg SQ DAILY 06/17/17 Metformin(XR) [Glucophage Xr] 500 mg PO DAILY 06/17/17 Aspirin E.C. [Ecotrin] 81 mg PO DAILY@0800 tab 06/20/17 Atorvastatin Calcium [Lipitor] 40 mg PO QHS #30 tab 06/20/17 Carvedilol [Coreg (Beta Juarez)] 6.25 mg PO BID #60 tab 06/20/17 Lisinopril [Zestril] 5 mg PO DAILY #30 tab 06/20/17 clopidogrel 75 mg tablet 75 mg PO QDAY #90 tab 07/19/17 Past Medical History (Chronic Problems): Chronic Problems (Last Updated 10/15/17 @ 11:58 by Jae Goldberg MD) Myocardial infarction, inferior wall (Chronic) Coronary artery disease (Chronic) Type 2 diabetes mellitus without complications (Chronic) Hyperlipidemia (Chronic) Hypertension (Chronic) H/O right coronary artery stent placement (Chronic ~06/17/17) PCI-BMS-Mid and Prox RCA w/ 2.25 x 18 mm, 2.25 x 14 mm, 2.25 x 12 mm Integrity and 2.5 x 16 mm Rebel 06/17/2017 Surgical History: cataract, coronary bypass surgery, - - Carpal tunnel surgery Psychiatric History: No pertinent psych hx 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 Denies: Fever, Fatigue, Night Sweats Cardiovascular: Reports: Peripheral Edema, Lightheadedness, Dizziness, Near Syncope. Denies: Shortness of Breath, Orthopnea, PND, Palpitations, Syncope Respiratory: Denies: Cough, Sputum Production, Hemoptysis Gastrointestinal: Denies: Hematemesis, Hematochezia, Melena Genitourinary: Denies: Dysuria, Hematuria Skin: Denies: Rash Subjectve: This is an 82-year-old white female who appears to be resting comfortably at the moment in no acute distress. Objective: Vital Signs Temp Pulse Resp BP Pulse Ox 99.0 F 96 16 125/65 H 97 10/15/17 12:52 10/15/17 12:52 10/15/17 12:52 10/15/17 12:52 10/15/17 12:52 Oxygen Delivery Method Room Air Weight: 143 lb 4.807 oz Body Mass Index (BMI) 27.1 General: Awake, Alert, Oriented x 3, Cooperative, No Acute Distress HEENT: Atraumatic, Normocephalic, PERRL, EOMI, Sclera Non Icteric Oral: Moist Mucosa Neck: Supple, Good ROM, No JVD Lungs: Diminished Left Base Cardiovascular: Regular Rhythm, Normal S1, Normal S2 Vascular: No Carotid Bruits Abdomen: Bowel Sounds Present, Soft, Non Tender Extremities: Trace LLE Edema Psych/Mental Status: Appropriate, Normal Affect 10/15/17 13:20: Magnesium 2.5, Iron 27 L, TIBC 213 L, Iron Saturation 12.7 L, Ferritin 387 H 10/15/17 13:20: PT 14.8, INR 1.2 10/15/17 13:20: Troponin I 0.027 Rhythm: Sinus rhythm EKG: As noted above ECHO: 06/17/2017: Left ventricle: Left ventricular regional wall motion abnormalities; LVEF 65%; mild concentric LVH; mild mitral annular calcification ; mild AI Cardiac Cath: 09/25/2017: Left ventricle with inferior basilar hypokinesis with LVEF of 50%; left main coronary artery with mild calcification; LAD with proximal moderate luminal irregularities up to 50%, mid 99%, and diagonal branch #1 with ostial 80% stenosis; LCx with mid 50% stenosis and OM1 with mid 95% stenosis; RCA with proximal mild luminal irregularities and mid in-stent restenosis of 99% in the right PDA being occluded; aortic root being calcified PCI: 06/17/2017: PTCA/stent to the RCA system CT Surgery: Details unknown CXR: Pulmonary evaluation: Postsurgical changes; left sided pleural effusion; please see official report Assessment/Plan 1. Atrial fibrillation with rapid ventricular response The patient had an episode of atrial fibrillation with rapid ventricular response. This may be secondary to a combination of her age, history of hypertension, history of cardiovascular disease with her recent diagnosis of CAD , AK, PCI, and subsequent CABG, however other etiologies such as thromboembolic events have not necessarily been excluded. At the present time the atrial fibrillation with RVR may have been a contributing factor to the patient's concerns of dizziness lightheadedness and near syncope. She has reverted to sinus rhythm. Her rate is controlled at the moment. She will continue to be monitored. She will continue noninvasive evaluation as deemed appropriate. She will continue medical therapy with rate limiting therapy, antiplatelet therapy, and the addition of antiarrhythmic therapy with amiodarone. Depending upon her clinical course she may need anticoagulant therapy as well. However there may be concerns of proceeding with such based upon her concerns of underlying anemia. 2. Near syncope The patient did have a near syncopal event. Again this may have been related to her atrial fibrillation with rapid ventricular response. However she will be monitored for any obvious additional adverse cardiovascular events or noncardiac events. She should be considered for evaluation based upon her recent extensive hospitalization, etc. for any prothrombotic events that may have contributed to her objective findings and symptoms. Will include concerns of pulmonary emboli. Thus would be reasonable to consider a d-dimer level and if abnormal a chest CT scan. 3. CAD status post AK status post PCI status post CABG The patient has had a recent extensive cardiovascular history as previously described. At the moment she is without acute cardiovascular symptoms for underlying progressive CAD or graft vessel disease. Her initial troponin I levels are unremarkable. Her ECG in sinus rhythm demonstrates no acute ECG changes. She will continue to be monitored. Her ECG can be followed. It would not be unreasonable to perform an echocardiogram, based upon her previous findings, and her current ECG findings with respect to some evidence of low voltage QRS, to evaluate for any changes in cardiac chamber size and/or function as well as for any obvious pericardial disease process. In the interim she will need to continue medical therapy such as her aspirin, antiplatelet therapy, nitrates as needed, beta-juarez therapy, afterload reducing agents, and lipid-lowering agents. 4. Hyperlipidemia The patient is on lipid-lowering therapy. 5. Hypertension The patient's blood pressures will need to be monitored. Her medications can be adjusted as needed. 6. Diabetes mellitus The patient does have diabetes mellitus. She will continue evaluation care per internal medicine. 7. Anemia The patient is anemic. She may need iron supplement. Depending upon her hemoglobin level she may eventually need PRBC transfusion. Comment: The above was discussed and reviewed with the patient and her spouse as well as multiple family members present and Dr. Goldberg. This note was generated with [employer] software. It may contain incorrect words, spelling, and punctuation that were not noted in checking the note before signing.
[2017-10-15 15:35] LABS: D-Dimer Quantitative (DVT/PE) 3.87 FEU/ug/m (0.27-0.49)
--- NOTE | 2017-10-15 15:49 | CT_ITS ---
STUDY: CTA CHEST REASON FOR EXAM: Female, 82 years old. Atrial fibrillation and rapid ventricular response. Patient had near syncope. RADIATION DOSAGE (If Supplied By Facility): CTDIvol = ( 16.64 ) mGy, DLP = ( 406.33 ) mGycm TECHNIQUE: The examination was performed with the intravenous administration of 100 ml of Isovue 370 contrast material. Post-processing of the angiographic images was performed, with multiplanar reformation and 3D reconstruction. Individualized dose optimization techniques were used for this CT. COMPARISON: None. FINDINGS: The patient has had a sternotomy. Normal enhancement of the main pulmonary artery and right and left pulmonary arteries. Normal enhancement of the bilateral peripheral pulmonary arteries. There is no demonstrated pulmonary embolism. There is prominence of the main pulmonary arteries without peripheral pulmonary vascular congestion. There is atherosclerotic calcification of the aortic arch with tortuosity. Maximum transverse dimension of the ascending thoracic aorta measures approximately 3.2 cm. There is no demonstrated aortic dissection. There is cardiomegaly. There are calcifications of the coronary arteries. Appears to be pericardial collection located to the left of the heart and adjacent to the superior mediastinum. This collection measures up to 3.3 cm in thickness by about 13 cm in length. There are visualized mediastinal lymph nodes, which are within normal size limits, and with normal morphology. Normal hilar regions. Normal visualized trachea and bronchi. The lungs are well expanded. There is bilateral basilar dependent atelectasis and/or airspace disease. There is a right middle lobe pulmonary nodule best seen on axial image #87 measuring approximately 2.7 mm. There are bilateral pleural effusions, right larger than left. The patient has had a sternotomy. There is mild multilevel thoracic spondylosis. Normal osseous structures. Normal visualized upper abdomen. CT/CTA Chest W/WO Contrast IMPRESSION: 1. No CTA demonstrated pulmonary embolism or arterial dissection. 2. Cardiomegaly and sequela of coronary artery vascular disease. 3. Loculated pericardial collection. 4. Bilateral pleural effusions. 5. Bilateral basilar airspace disease and/or atelectasis. 6. Right middle lobe pulmonary nodule. Electronically Signed: Stephanie Cabrera MD at 17:53 EDT , Service support ,
[2017-10-15] MEDS: 0.9% Normal Saline 1,000 ML 75 ML IV (16:05)
[2017-10-15 17:30] LABS: Bedside Glucose 112 mg/dL (70-110)
[2017-10-15 18:44] LABS: Potassium 4.2 mmol/L (3.5-5.1)
[2017-10-15] MEDS: Menthol/Lanolin/Calamine/Znox 113 GM Tube 1 APPLIC TOPICAL (21:40)
[2017-10-15] MEDS: Atorvastatin Calcium 40 MG Tablet PO (21:41)
[2017-10-15] MEDS: Amiodarone 200 MG Tablet PO (21:41)
[2017-10-15] MEDS: Carvedilol 6.25 MG Tablet PO (21:41)
[2017-10-15] MEDS: Furosemide 20 MG/2 ML VIAL IV (21:41)
[2017-10-15] MEDS: 0.9% NaCl Peripheral Flush Adult/Peds IV (21:48)
[2017-10-16] VITALS (15 sets, daily range): BP systolic 93–141; BP diastolic 39–62; PULSE 66–89; RESP 15–18; TEMP 36.5–37.2; O2SAT 92–96
[2017-10-16 00:01] LABS: Bedside Glucose 129 mg/dL (70-110)
[2017-10-16] MEDS: Menthol/Lanolin/Calamine/Znox 113 GM Tube 1 APPLIC TOPICAL ×3 (04:42→21:40)
[2017-10-16 05:00] LABS: Bacteria 0 SEEN /hpf (None Seen); Mucous, Urine 0 SEEN /hpf (<or=2+); Red Blood Cells-Urine 0 SEEN /hpf (0-5); Squamous Epithelial Cells - UA 0 SEEN /hpf (5-10); White Blood Cells 0 SEEN /hpf (0-5)
[2017-10-16 05:01] LABS: Color, Urine Yellow (Yellow); Glucose, Dipstick Normal (Normal); Ketone-Dipstick Negative (Negative); Leukocyte Esterase-Dipstick Negative /ul (Negative); Nitrite-Dipstick Negative (Negative); Occult Blood-Urine Negative /ul (Negative); Protein-Dipstick Negative (Negative); Urine Bilirubin Dipstick Negative (Negative); Urine Clarity Clear (Clear); Urine Urobilinogen Normal (Normal); Urine pH 6.5 (5.0 - 8.0)
--- NOTE | 2017-10-16 05:55 | EKG12_ITS ---
Test Reason : REPEAT Blood Pressure : / mmHG Vent. Rate : 089 BPM Atrial Rate : 089 BPM P-R Int : 156 ms QRS Dur : 080 ms QT Int : 402 ms P-R-T Axes : 069 029 048 degrees QTc Int : 489 ms Normal sinus rhythm Low voltage QRS Nonspecific T wave abnormality Abnormal ECG Confirmed by ALEJANDRA BRUNER, ARJUN ([id number]), sound editor MOLLY KELLY ([id number]) on 10/17/2017 3:16:19 PM Referred By: LOGAN Confirmed By:ARJUN ROBERTS MD
--- NOTE | 2017-10-16 05:55 | ECHOD_ITS ---
Reason For Study: AFIB Procedure This was a 2D Doppler, Color Flow transthoracic echocardiogram. Technically difficult- pt has 2 week old incision from CABG. Exam performed portable in patient room. Left Ventricle Normal LV size. Left ventricular systolic function is normal. The estimated ejection fraction is 55 %. No evidence for diastolic dysfunction. No regional wall motion abnormalities noted. Right Ventricle Normal RV size. Normal systolic function. Atria Normal left atrium. Normal right atrium. Mitral Valve There is mild mitral annular calcification. Mild (1+) eccentric mitral valve insufficiency. Tricuspid Valve Normal tricuspid valve. Mild tricuspid valve insufficiency. Aortic Valve The aortic valve is not well visualized. Mild (1+) eccentric aortic valve insufficiency. Pulmonic Valve The pulmonic valve is not well visualized. Great Vessels Normal aortic root. The pulmonary artery is normal size. Normal inferior vena cava. Pericardium/Pleural Small pericardial effusion. Small left pleural effusion. MMode/2D Measurements & Calculations LVIDd: 4.0 cm IVSd: 1.2 cm Ao root diam: 3.1 cm LVIDs: 2.4 cm LVPWd: 1.1 cm RVDd: 3.4 cm FS: 39.0 % LAV(MOD-bp): 47.5 ml LA A4 area: 17.4 cm2 RA A4 area: 14.4 cm2 LAV(MOD-bp) Indexed: 29.0 ml/m2 LAV(MOD-sp2): 49.7 ml LAV(MOD-sp4): 45.5 ml Time Measurements MV dec time: 0.20 sec Doppler Measurements & Calculations MV E max [place]: 110.7 cm/sec Lat Peak E' [place]: 7.7 cm/sec Med Peak E' [place]: 5.6 cm/sec MV A max [place]: 72.5 cm/sec E/E' lat: 14.4 E/E' med: 19.9 MV E/A: 1.5 Ao V2 max: 174.0 cm/sec AI max [place]: 320.9 cm/sec LV V1 max: 89.1 cm/sec Ao max P.1 mmHg AI max P.2 mmHg LV V1 max P.2 mmHg AI dec slope: 165.6 cm/sec2 AI P1/2t: 567.4 msec TR max [place]: 215.9 cm/sec TR max P.7 mmHg Interpretation Summary Normal LV size. Left ventricular systolic function is normal. The estimated ejection fraction is 55 %. No evidence for diastolic dysfunction. Mild (1+) eccentric aortic valve insufficiency. Ordering Physician: Dre Fuller Referring Physician: COCO BEASLEY Performed By: Reyna Chopra, LIZANDRO, RVT
[2017-10-16 06:02] LABS: Absolute Lymphocyte Count 0.98 X10^3/ul (0.83-4.51); Absolute Neutrophil Count 8.8 X10^3/uL (2.0-7.7); Basophil# 0.02 X10^3/uL; Basophil% 0.2 % (0-1); Eosinophil# 0.19 X10^3/uL; Eosinophils% 1.7 % (0-5); Hematocrit 27.4 % (37-47); Hemoglobin 8.6 g/dl (12.0-15.0); Lymphocyte # 0.98 X10^3/ul (4.0); Mean Corp Hgb Conc 31.4 g/gl (32-36); Mean Corpuscular Hgb 29.8 pg (27.0-32.0); Mean Corpuscular Volume 94.8 fL (81-99); Mean Platelet Vol. 9.2 fl (6.2-12.0); Monocyte# 0.94 X10^3/uL; Monocyte% 8.6 % (0-10); Neutrophil # 8.77 X10^3/uL (2.7-7.7); Neutrophil % 80.1 % (47-70); Platelet Count 332 K/mm3 (150-450); RBC Distribution Width CV 15.8 % (11.6-14.6); RBC Distribution Width SD 51.2 fl (35.1-43.9); Red Blood Count 2.89 M/mm3 (4.2-5.4); White Blood Count 10.9 K/mm3 (4.4-11.0)
[2017-10-16 06:11] LABS: POSITIVE COUNT NO; POSITIVE DIFFERENTIAL NO; POSITIVE MORPHOLOGY NO
[2017-10-16 06:24] LABS: Anion Gap 9 (5-15); BUN 18 mg/dL (7-18); BUN/Creat Ratio 17.5 RATIO (10-20); Calcium,Total 8.5 mg/dL (8.5-10.1); Chloride 106 mmol/L (98-107); Creatinine, Serum 1.03 mg/dL (0.55-1.02); EST Glomerular Filtration Rate 55 mL/min (>60); Est Glom Filt Rate - Afr Amer 66 mL/min (>60); Estimated Creatinine Clearance 32.87 ml/min; Glucose 141 mg/dL (74-106); Potassium 4.2 mmol/L (3.5-5.1); Sodium Level 141 mmol/L (136-145)
[2017-10-16] MEDS: Albuterol 2.5 MG/3 ML VIAL.NEB. INHALATION ×4 (06:49→19:14)
[2017-10-16 07:10] LABS: Bedside Glucose 134 mg/dL (70-110)
--- NOTE | 2017-10-16 07:26 | PCM.PN.CARD ---
Subjectve: Patient seen and evaluated. Appears to be doing well. Objective: Vital Signs Temp Pulse Resp BP Pulse Ox 98.9 F 77 16 102/55 L 96 10/16/17 03:55 10/16/17 04:21 10/16/17 03:55 10/16/17 04:21 10/16/17 03:55 Oxygen Delivery Method Room Air Weight: 143 lb 4.807 oz Body Mass Index (BMI) 27.1 Orthostatic Vital Signs Start: 10/16/17 04:21 Freq: q24h Status: Active Protocol: Activity Type Activity Date Activity User E-Sign Co-Sign Detail Recorded Client Recorded Date Recorded By Document 10/16/17 04:21 AML [id number] 10/16/17 04:22 AML 10/16/17 04:21 Orthostatic Vitals Standing -Blood Pressure (90/60-120/80) 141/62 H -Extremity Use Left Arm -Pulse Rate (60-100) 89 Sitting -Blood Pressure (90/60-120/80) 116/39 L -Extremity Use Left Arm -Pulse Rate (60-100) 86 Lying -Blood Pressure (90/60-120/80) 102/55 L -Extremity Use Left Arm -Pulse Rate (60-100) 77 Intake and Output for Last 24 Hours 10/14/17 10/15/17 10/16/17 23:59 23:59 23:59 Intake Total 881 / 881 218 / 218 Output Total 100 / 100 Balance 881 / 881 118 / 118 General: Awake, Alert, Oriented x 3 HEENT: PERRL, EOMI, Sclera Non Icteric Neck: Supple, Good ROM, No Lymph Node Enlargement Lungs: Clear to auscultation Cardiovascular: Regular Rhythm, Normal S1, Normal S2, No Murmurs, No Rubs, No Gallops Vascular: No Carotid Bruits, Normal Femoral Pulses, Normal Radial Pulses, Normal Dorsalis Pedal Pulse, Normal Posterior Tibial Pulses Abdomen: Bowel Sounds Present, Soft, Non Tender, No HSM, No Organomegaly Extremities: No Cyanosis, No Clubbing, No edema Neurological: No Focal Motor or Sensory Deficit 10/15/17 13:20: Magnesium 2.5, Iron 27 L, TIBC 213 L, Iron Saturation 12.7 L, Ferritin 387 H 10/15/17 13:20: PT 14.8, INR 1.2 10/15/17 13:20: Troponin I 0.027 10/15/17 13:20: D-Dimer Quant (PE/DVT) 3.87 H* 10/15/17 16:23: Troponin I 0.030 10/15/17 18:00: Potassium 4.2 10/16/17 04:30: Urine Color Yellow, Urine Clarity Clear, Urine pH 6.5, Ur Specific [place] 1.010, Urine Protein Negative, Urine Glucose (UA) Normal, Urine Ketones Negative, Urine Occult Blood Negative, Urine Nitrite Negative, Urine Bilirubin Negative, Urine Urobilinogen Normal, Ur Leukocyte Esterase Negative, Urine RBC 0 SEEN, Urine WBC 0 SEEN 10/16/17 05:25: WBC 10.9, RBC 2.89 L, Hgb 8.6 L, Hct 27.4 L, MCV 94.8, MCH 29.8, MCHC 31.4 L, RDW 15.8 H, RDW Differential 51.2 H, Plt Count 332, MPV 9.2, Immature Gran % (Auto) 0.400, Neut % (Auto) 80.1 H, Lymph % (Auto) 9.0 L, [place] % (Auto) 8.6, Eos % (Auto) 1.7, Baso % (Auto) 0.2, Absolute Neuts (auto) 8.8 H, Total Counted Not Reportable 10/16/17 05:25: Sodium 141, Potassium 4.2, Chloride 106, Carbon Dioxide 26.0, Anion Gap 9, BUN 18, Creatinine 1.03 H, Est GFR (MDRD) Af Amer 66, Est GFR (MDRD) Non-Af 55 L, BUN/Creatinine Ratio 17.5, Glucose 141 H, Calcium 8.5 Rhythm: EKG: Normal sinus rhythm. Medical Necessity - Tobacco Use Smoking Status: Former smoker Assessment/Plan 1. Atrial fibrillation with rapid ventricular response The patient had an episode of atrial fibrillation with rapid ventricular response. This may be secondary to a combination of her age, history of hypertension, history of cardiovascular disease with her recent diagnosis of CAD, [place], PCI, and subsequent CABG. She has reverted to sinus rhythm. Her rate is controlled at the moment. I would recommend low-dose amiodarone without any anticoagulation at the present time and she will be followed up as an outpatient. 2. Near syncope The patient did have a near syncopal event. Again this may have been related to her atrial fibrillation with rapid ventricular response. However she will be monitored for any obvious additional adverse cardiovascular events or noncardiac events. She should be considered for evaluation based upon her recent extensive hospitalization, etc. for any prothrombotic events that may have contributed to her objective findings and symptoms. Will include concerns of pulmonary emboli. Thus would be reasonable to consider a d-dimer level and if abnormal a chest CT scan. 3. CAD status post AL status post PCI status post CABG The patient has had a recent extensive cardiovascular history as previously described. At the moment she is without acute cardiovascular symptoms for underlying progressive CAD or graft vessel disease. Her initial troponin I levels are unremarkable. Her ECG in sinus rhythm demonstrates no acute ECG changes. Would recommend an echocardiogram to assess her left ventricular function and exclude any pericardial disease.In the interim she will need to continue medical therapy such as her aspirin, antiplatelet therapy, nitrates as needed, beta-kartik therapy, afterload reducing agents, and lipid-lowering agents. 4. Hyperlipidemia The patient is on lipid-lowering therapy. 5. Hypertension The patient's blood pressures will need to be monitored. Her medications can be adjusted as needed. If no significant abnormalities are noted on her echocardiogram my recommendation will be to discharge her later today and follow her up as an outpatient.
--- NOTE | 2017-10-16 07:30 | PN.CARD_ITS ---
Subjectve: Patient seen and evaluated. Appears to be doing well. Objective: Vital Signs Temp Pulse Resp BP Pulse Ox 98.9 F 77 16 102/55 L 96 10/16/17 03:55 10/16/17 04:21 10/16/17 03:55 10/16/17 04:21 10/16/17 03:55 Oxygen Delivery Method Room Air Weight: 143 lb 4.807 oz Body Mass Index (BMI) 27.1 Orthostatic Vital Signs Start: 10/16/17 04:21 Freq: q24h Status: Active Protocol: Activity Type Activity Date Activity User E-Sign Co-Sign Detail Recorded Client Recorded Date Recorded By Document 10/16/17 04:21 AML [id number] 10/16/17 04:22 AML 10/16/17 04:21 Orthostatic Vitals Standing -Blood Pressure (90/60-120/80) 141/62 H -Extremity Use Left Arm -Pulse Rate (60-100) 89 Sitting -Blood Pressure (90/60-120/80) 116/39 L -Extremity Use Left Arm -Pulse Rate (60-100) 86 Lying -Blood Pressure (90/60-120/80) 102/55 L -Extremity Use Left Arm -Pulse Rate (60-100) 77 Intake and Output for Last 24 Hours 10/14/17 10/15/17 10/16/17 23:59 23:59 23:59 Intake Total 881 / 881 218 / 218 Output Total 100 / 100 Balance 881 / 881 118 / 118 General: Awake, Alert, Oriented x 3 HEENT: PERRL, EOMI, Sclera Non Icteric Neck: Supple, Good ROM, No Lymph Node Enlargement Lungs: Clear to auscultation Cardiovascular: Regular Rhythm, Normal S1, Normal S2, No Murmurs, No Rubs, No Gallops Vascular: No Carotid Bruits, Normal Femoral Pulses, Normal Radial Pulses, Normal Dorsalis Pedal Pulse, Normal Posterior Tibial Pulses Abdomen: Bowel Sounds Present, Soft, Non Tender, No HSM, No Organomegaly Extremities: No Cyanosis, No Clubbing, No edema Neurological: No Focal Motor or Sensory Deficit 10/15/17 13:20: Magnesium 2.5, Iron 27 L, TIBC 213 L, Iron Saturation 12.7 L, Ferritin 387 H 10/15/17 13:20: PT 14.8, INR 1.2 10/15/17 13:20: Troponin I 0.027 10/15/17 13:20: D-Dimer Quant (PE/DVT) 3.87 H* 10/15/17 16:23: Troponin I 0.030 10/15/17 18:00: Potassium 4.2 10/16/17 04:30: Urine Color Yellow, Urine Clarity Clear, Urine pH 6.5, Ur Specific [place] 1.010, Urine Protein Negative, Urine Glucose (UA) Normal, Urine Ketones Negative, Urine Occult Blood Negative, Urine Nitrite Negative, Urine Bilirubin Negative, Urine Urobilinogen Normal, Ur Leukocyte Esterase Negative, Urine RBC 0 SEEN, Urine WBC 0 SEEN 10/16/17 05:25: WBC 10.9, RBC 2.89 L, Hgb 8.6 L, Hct 27.4 L, MCV 94.8, MCH 29.8 , MCHC 31.4 L, RDW 15.8 H, RDW Differential 51.2 H, Plt Count 332, MPV 9.2, Immature Gran % (Auto) 0.400, Neut % (Auto) 80.1 H, Lymph % (Auto) 9.0 L, [place] % (Auto) 8.6, Eos % (Auto) 1.7, Baso % (Auto) 0.2, Absolute Neuts (auto) 8.8 H, Total Counted Not Reportable 10/16/17 05:25: Sodium 141, Potassium 4.2, Chloride 106, Carbon Dioxide 26.0, Anion Gap 9, BUN 18, Creatinine 1.03 H, Est GFR (MDRD) Af Amer 66, Est GFR (MDRD ) Non-Af 55 L, BUN/Creatinine Ratio 17.5, Glucose 141 H, Calcium 8.5 Rhythm: EKG: Normal sinus rhythm. Medical Necessity - Tobacco Use Smoking Status: Former smoker Assessment/Plan 1. Atrial fibrillation with rapid ventricular response The patient had an episode of atrial fibrillation with rapid ventricular response. This may be secondary to a combination of her age, history of hypertension, history of cardiovascular disease with her recent diagnosis of CAD , [place], PCI, and subsequent CABG. She has reverted to sinus rhythm. Her rate is controlled at the moment. I would recommend low-dose amiodarone without any anticoagulation at the present time and she will be followed up as an outpatient. 2. Near syncope The patient did have a near syncopal event. Again this may have been related to her atrial fibrillation with rapid ventricular response. However she will be monitored for any obvious additional adverse cardiovascular events or noncardiac events. She should be considered for evaluation based upon her recent extensive hospitalization, etc. for any prothrombotic events that may have contributed to her objective findings and symptoms. Will include concerns of pulmonary emboli. Thus would be reasonable to consider a d-dimer level and if abnormal a chest CT scan. 3. CAD status post [place] status post PCI status post CABG The patient has had a recent extensive cardiovascular history as previously described. At the moment she is without acute cardiovascular symptoms for underlying progressive CAD or graft vessel disease. Her initial troponin I levels are unremarkable. Her ECG in sinus rhythm demonstrates no acute ECG changes. Would recommend an echocardiogram to assess her left ventricular function and exclude any pericardial disease.In the interim she will need to continue medical therapy such as her aspirin, antiplatelet therapy, nitrates as needed, beta-kartik therapy, afterload reducing agents, and lipid-lowering agents. 4. Hyperlipidemia The patient is on lipid-lowering therapy. 5. Hypertension The patient's blood pressures will need to be monitored. Her medications can be adjusted as needed. If no significant abnormalities are noted on her echocardiogram my recommendation will be to discharge her later today and follow her up as an outpatient.
--- NOTE | 2017-10-16 08:13 | PCM.PROGNOTE ---
Patient Problems: Active and Suspected Problems (Last Updated 10/15/17 @ 11:58 by Jae Goldberg MD) Near syncope (Acute) Anemia (Acute) Atrial fibrillation with RVR (Acute) Status post coronary artery bypass graft (Acute) Subjective: Chief complaint: Follow-up after admission for new onset A. fib with RVR, near syncope, mild hyperkalemia, anemia, bilateral pleural effusions and recent CABG. Patient seen and examined. No acute events overnight. This morning, she denies any complaints. She has been up and ambulating. Denies any more dizziness or lightheadedness. No chest pain or shortness of breath. She remained in sinus rhythm, vital signs are stable, orthostatic vitals also were normal. - Physical Exam General: Alert, Oriented x3, Cooperative, No apparent distress HEENT: Atraumatic, PERRLA, EOMI, Normocephalic Oral: Moist Mucosa, No Gingival or Mucosal Lesions/ Ulcerations Neck: Supple, No JVD, Negative Carotid Bruits, Trachea Midline, Thyroid Normal Size and Texture Lungs: No rhonchi, No wheeze, No rales, Diminished, - - Decreased breath sounds at the bases, more on the right base. Cardiovascular: Regular rate, Regular Rhythm, Normal S1, Normal S2, PMI Normal Abdomen: Bowel Sounds Present, Soft, Non Tender, Non-Distended, No Hepato-splenomegaly Extremities: No clubbing, No cyanosis, No edema Skin: No rashes, No breakdown Lymphatic: No Cervical, Supraclavicular, or Inguinal Adenopathy Neurological: Cranial nerves II-XII grossly intact, Motor Exam 5/5 strength throughout Psych/Mental Status: Normal Affect, Appropriate, Alert and oriented to time, place, person, mood and affect Vital Signs Temp Pulse Resp BP Pulse Ox 98.9 F 88 17 102/55 L 94 10/16/17 03:55 10/16/17 07:05 10/16/17 07:05 10/16/17 04:21 10/16/17 07:05 Oxygen Delivery Method Room Air Weight: 143 lb 4.807 oz Body Mass Index (BMI) 27.1 Orthostatic Vital Signs Start: 10/16/17 04:21 Freq: q24h Status: Active Protocol: Activity Type Activity Date Activity User E-Sign Co-Sign Detail Recorded Client Recorded Date Recorded By Document 10/16/17 04:21 AML [id number] 10/16/17 04:22 AML 10/16/17 04:21 Orthostatic Vitals Standing -Blood Pressure (90/60-120/80) 141/62 H -Extremity Use Left Arm -Pulse Rate (60-100) 89 Sitting -Blood Pressure (90/60-120/80) 116/39 L -Extremity Use Left Arm -Pulse Rate (60-100) 86 Lying -Blood Pressure (90/60-120/80) 102/55 L -Extremity Use Left Arm -Pulse Rate (60-100) 77 Intake and Output for Last 24 Hours 10/14/17 10/15/17 10/16/17 23:59 23:59 23:59 Intake Total 881 / 881 218 / 218 Output Total 100 / 100 Balance 881 / 881 118 / 118 Laboratory Tests Past 24 Hrs 10/15/17 10/15/17 10/15/17 13:20 13:20 13:20 WBC RBC Hgb Hct MCV MCH MCHC RDW RDW Differential Plt Count MPV Immature Gran % (Auto) Neut % (Auto) Lymph % (Auto) [place] % (Auto) Eos % (Auto) Baso % (Auto) Absolute Neuts (auto) Absolute Lymphs (auto) Total Counted PT 14.8 INR 1.2 D-Dimer Quant (PE/DVT) Sodium Potassium Chloride Carbon Dioxide Anion Gap BUN Creatinine Estim Creat Clear Calc Est GFR (MDRD) Af Amer Est GFR (MDRD) Non-Af BUN/Creatinine Ratio Glucose Calcium Magnesium 2.5 Iron 27 L TIBC 213 L Iron Saturation 12.7 L Transferrin Pending Ferritin 387 H Troponin I TSH 1.28 Urine Color Urine Clarity Urine pH Ur Specific [place] Urine Protein Urine Glucose (UA) Urine Ketones Urine Occult Blood Urine Nitrite Urine Bilirubin Urine Urobilinogen Ur Leukocyte Esterase Urine RBC Urine WBC Ur Squamous Epith Cells Urine Bacteria Urine Mucus 10/15/17 10/15/17 10/15/17 13:20 13:20 16:23 WBC RBC Hgb Hct MCV MCH MCHC RDW RDW Differential Plt Count MPV Immature Gran % (Auto) Neut % (Auto) Lymph % (Auto) [place] % (Auto) Eos % (Auto) Baso % (Auto) Absolute Neuts (auto) Absolute Lymphs (auto) Total Counted PT INR D-Dimer Quant (PE/DVT) 3.87 H* Sodium Potassium Chloride Carbon Dioxide Anion Gap BUN Creatinine Estim Creat Clear Calc Est GFR (MDRD) Af Amer Est GFR (MDRD) Non-Af BUN/Creatinine Ratio Glucose Calcium Magnesium Iron TIBC Iron Saturation Transferrin Ferritin Troponin I 0.027 0.030 TSH Urine Color Urine Clarity Urine pH Ur Specific [place] Urine Protein Urine Glucose (UA) Urine Ketones Urine Occult Blood Urine Nitrite Urine Bilirubin Urine Urobilinogen Ur Leukocyte Esterase Urine RBC Urine WBC Ur Squamous Epith Cells Urine Bacteria Urine Mucus 10/15/17 10/16/17 10/16/17 18:00 04:30 05:25 WBC 10.9 RBC 2.89 L Hgb 8.6 L Hct 27.4 L MCV 94.8 MCH 29.8 MCHC 31.4 L RDW 15.8 H RDW Differential 51.2 H Plt Count 332 MPV 9.2 Immature Gran % (Auto) 0.400 Neut % (Auto) 80.1 H Lymph % (Auto) 9.0 L [place] % (Auto) 8.6 Eos % (Auto) 1.7 Baso % (Auto) 0.2 Absolute Neuts (auto) 8.8 H Absolute Lymphs (auto) 0.98 Total Counted Not Reportable PT INR D-Dimer Quant (PE/DVT) Sodium Potassium 4.2 Chloride Carbon Dioxide Anion Gap BUN Creatinine Estim Creat Clear Calc Est GFR (MDRD) Af Amer Est GFR (MDRD) Non-Af BUN/Creatinine Ratio Glucose Calcium Magnesium Iron TIBC Iron Saturation Transferrin Ferritin Troponin I TSH Urine Color Yellow Urine Clarity Clear Urine pH 6.5 Ur Specific [place] 1.010 Urine Protein Negative Urine Glucose (UA) Normal Urine Ketones Negative Urine Occult Blood Negative Urine Nitrite Negative Urine Bilirubin Negative Urine Urobilinogen Normal Ur Leukocyte Esterase Negative Urine RBC 0 SEEN Urine WBC 0 SEEN Ur Squamous Epith Cells 0 SEEN Urine Bacteria 0 SEEN Urine Mucus 0 SEEN 10/16/17 05:25 WBC RBC Hgb Hct MCV MCH MCHC RDW RDW Differential Plt Count MPV Immature Gran % (Auto) Neut % (Auto) Lymph % (Auto) [place] % (Auto) Eos % (Auto) Baso % (Auto) Absolute Neuts (auto) Absolute Lymphs (auto) Total Counted PT INR D-Dimer Quant (PE/DVT) Sodium 141 Potassium 4.2 Chloride 106 Carbon Dioxide 26.0 Anion Gap 9 BUN 18 Creatinine 1.03 H Estim Creat Clear Calc 32.87 Est GFR (MDRD) Af Amer 66 Est GFR (MDRD) Non-Af 55 L BUN/Creatinine Ratio 17.5 Glucose 141 H Calcium 8.5 Magnesium Iron TIBC Iron Saturation Transferrin Ferritin Troponin I TSH Urine Color Urine Clarity Urine pH Ur Specific [place] Urine Protein Urine Glucose (UA) Urine Ketones Urine Occult Blood Urine Nitrite Urine Bilirubin Urine Urobilinogen Ur Leukocyte Esterase Urine RBC Urine WBC Ur Squamous Epith Cells Urine Bacteria Urine Mucus POC Glucose 10/16/17 10/15/17 10/15/17 07:06 21:56 17:22 POC Glucose 134 H 129 H 112 H Clinical Impression(s) from Imaging Studies chest CTA 10/15/17 15:49 IMPRESSION: 1. No CTA demonstrated pulmonary embolism or arterial dissection. 2. Cardiomegaly and sequela of coronary artery vascular disease. 3. Loculated pericardial collection. 4. Bilateral pleural effusions. 5. Bilateral basilar airspace disease and/or atelectasis. 6. Right middle lobe pulmonary nodule. Electronically Signed: Stephanie Cabrera MD at 17:53 EDT , Service support , Medical Necessity - Tobacco Use Smoking Status: Former smoker Assessment/Plan All Active Problems (Last Updated 10/15/17 @ 11:58 by Jae Goldberg MD) Near syncope (Acute) Anemia (Acute) Atrial fibrillation with RVR (Acute) Status post coronary artery bypass graft (Acute) This is an 82 years old female patient presented to the emergency room because of near syncope and she was found to have new onset A. fib with RVR as well as anemia, mild hyperkalemia and new small left pleural effusion. She had a recent history of CABG a few days ago. #1 new onset A. fib with RVR: Converted back to sinus rhythm, rate has been stable. EKG from today reviewed, revealed normal sinus rhythm without acute ischemic changes. She is on Coreg, started on amiodarone. Serum potassium and magnesium were normal. TSH is normal. CTA chest done for elevated d-dimer and revealed no PE or dissection, revealed loculated pericardial collection. 2D echocardiogram ordered. Cardiology on the case. Plan to continue same treatment. #2 near syncope: Probably multifactorial secondary to A. fib with RVR, poor oral intake, anorexia and dehydration as well as recent major surgery. Today, she has normal symptoms of dizziness or lightheadedness. Her orthostatic vitals were normal. #3 mild hyperkalemia: Admission potassium is 5.6. No EKG changes related to hyperkalemia. Today's potassium is 4.2, normalized without any interventions. #4 Acute iron deficiency anemia: Probably multifactorial because of recent surgery and poor oral intake. Her serum iron, TIBC and iron saturation are low, serum ferritin is high. Stool for occult blood ordered. Plan: We will give IV Venofer ?1 today, start oral ferrous sulfate tomorrow. #5 Bilateral pleural effusions/small right middle lobe nodule: More on the right side. Likely due to compressive atelectasis. At this time, I doubt active pneumonia. Her white blood cell count is normal. She is afebrile. CTA chest done last night for elevated d-dimer, revealed small right middle lobe nodule. Plan to encourage ambulation and incentive spirometer, chest physiotherapy, pulmonology consult for lung nodule. #6 recent CABG: Surgical incision is clean and dry. She underwent cardiac catheterization on September 25, 2017 that revealed severe triple-vessel disease, went for CABG few days ago she was discharged from [facility] this past Monday. EKG reviewed. Troponin is negative. Continue aspirin, statins, Plavix, Coreg and lisinopril. #7 CAD status post stents and recent CABG: Stable, plan as above. Continue aspirin, Plavix, statins, Coreg and lisinopril. #8 hypertension: Blood pressure stable, continue Coreg and lisinopril. #9 type 2 diabetes mellitus: Blood sugar stable, continue ADA diet, Accu-Cheks, insulin sliding scale, continue metformin and Victoza. #10 hyperlipidemia: Continue statins. #11 DVT prophylaxis: Subcu Lovenox. This note was generated with [employer] dictation software. It may contain incorrect words, spelling, and punctuation that were not noted in checking the note before signing. Code Visit Inpatient E&M: 98974 Subs Hosp L3
--- NOTE | 2017-10-16 08:20 | PN_ITS ---
Patient Problems: Active and Suspected Problems (Last Updated 10/15/17 @ 11:58 by Jae Goldberg MD) Near syncope (Acute) Anemia (Acute) Atrial fibrillation with RVR (Acute) Status post coronary artery bypass graft (Acute) Subjective: Chief complaint: Follow-up after admission for new onset A. fib with RVR, near syncope, mild hyperkalemia, anemia, bilateral pleural effusions and recent CABG. Patient seen and examined. No acute events overnight. This morning, she denies any complaints. She has been up and ambulating. Denies any more dizziness or lightheadedness. No chest pain or shortness of breath. She remained in sinus rhythm, vital signs are stable, orthostatic vitals also were normal. - Physical Exam General: Alert, Oriented x3, Cooperative, No apparent distress HEENT: Atraumatic, PERRLA, EOMI, Normocephalic Oral: Moist Mucosa, No Gingival or Mucosal Lesions/ Ulcerations Neck: Supple, No JVD, Negative Carotid Bruits, Trachea Midline, Thyroid Normal Size and Texture Lungs: No rhonchi, No wheeze, No rales, Diminished, - - Decreased breath sounds at the bases, more on the right base. Cardiovascular: Regular rate, Regular Rhythm, Normal S1, Normal S2, PMI Normal Abdomen: Bowel Sounds Present, Soft, Non Tender, Non-Distended, No Hepato- splenomegaly Extremities: No clubbing, No cyanosis, No edema Skin: No rashes, No breakdown Lymphatic: No Cervical, Supraclavicular, or Inguinal Adenopathy Neurological: Cranial nerves II-XII grossly intact, Motor Exam 5/5 strength throughout Psych/Mental Status: Normal Affect, Appropriate, Alert and oriented to time, place, person, mood and affect Vital Signs Temp Pulse Resp BP Pulse Ox 98.9 F 88 17 102/55 L 94 10/16/17 03:55 10/16/17 07:05 10/16/17 07:05 10/16/17 04:21 10/16/17 07:05 Oxygen Delivery Method Room Air Weight: 143 lb 4.807 oz Body Mass Index (BMI) 27.1 Orthostatic Vital Signs Start: 10/16/17 04:21 Freq: q24h Status: Active Protocol: Activity Type Activity Date Activity User E-Sign Co-Sign Detail Recorded Client Recorded Date Recorded By Document 10/16/17 04:21 AML [id number] 10/16/17 04:22 AML 10/16/17 04:21 Orthostatic Vitals Standing -Blood Pressure (90/60-120/80) 141/62 H -Extremity Use Left Arm -Pulse Rate (60-100) 89 Sitting -Blood Pressure (90/60-120/80) 116/39 L -Extremity Use Left Arm -Pulse Rate (60-100) 86 Lying -Blood Pressure (90/60-120/80) 102/55 L -Extremity Use Left Arm -Pulse Rate (60-100) 77 Intake and Output for Last 24 Hours 10/14/17 10/15/17 10/16/17 23:59 23:59 23:59 Intake Total 881 / 881 218 / 218 Output Total 100 / 100 Balance 881 / 881 118 / 118 Laboratory Tests Past 24 Hrs 10/15/17 10/15/17 10/15/17 13:20 13:20 13:20 WBC RBC Hgb Hct MCV MCH MCHC RDW RDW Differential Plt Count MPV Immature Gran % (Auto) Neut % (Auto) Lymph % (Auto) [place] % (Auto) Eos % (Auto) Baso % (Auto) Absolute Neuts (auto) Absolute Lymphs (auto) Total Counted PT 14.8 INR 1.2 D-Dimer Quant (PE/DVT) Sodium Potassium Chloride Carbon Dioxide Anion Gap BUN Creatinine Estim Creat Clear Calc Est GFR (MDRD) Af Amer Est GFR (MDRD) Non-Af BUN/Creatinine Ratio Glucose Calcium Magnesium 2.5 Iron 27 L TIBC 213 L Iron Saturation 12.7 L Transferrin Pending Ferritin 387 H Troponin I TSH 1.28 Urine Color Urine Clarity Urine pH Ur Specific [place] Urine Protein Urine Glucose (UA) Urine Ketones Urine Occult Blood Urine Nitrite Urine Bilirubin Urine Urobilinogen Ur Leukocyte Esterase Urine RBC Urine WBC Ur Squamous Epith Cells Urine Bacteria Urine Mucus 10/15/17 10/15/17 10/15/17 13:20 13:20 16:23 WBC RBC Hgb Hct MCV MCH MCHC RDW RDW Differential Plt Count MPV Immature Gran % (Auto) Neut % (Auto) Lymph % (Auto) [place] % (Auto) Eos % (Auto) Baso % (Auto) Absolute Neuts (auto) Absolute Lymphs (auto) Total Counted PT INR D-Dimer Quant (PE/DVT) 3.87 H* Sodium Potassium Chloride Carbon Dioxide Anion Gap BUN Creatinine Estim Creat Clear Calc Est GFR (MDRD) Af Amer Est GFR (MDRD) Non-Af BUN/Creatinine Ratio Glucose Calcium Magnesium Iron TIBC Iron Saturation Transferrin Ferritin Troponin I 0.027 0.030 TSH Urine Color Urine Clarity Urine pH Ur Specific [place] Urine Protein Urine Glucose (UA) Urine Ketones Urine Occult Blood Urine Nitrite Urine Bilirubin Urine Urobilinogen Ur Leukocyte Esterase Urine RBC Urine WBC Ur Squamous Epith Cells Urine Bacteria Urine Mucus 10/15/17 10/16/17 10/16/17 18:00 04:30 05:25 WBC 10.9 RBC 2.89 L Hgb 8.6 L Hct 27.4 L MCV 94.8 MCH 29.8 MCHC 31.4 L RDW 15.8 H RDW Differential 51.2 H Plt Count 332 MPV 9.2 Immature Gran % (Auto) 0.400 Neut % (Auto) 80.1 H Lymph % (Auto) 9.0 L [place] % (Auto) 8.6 Eos % (Auto) 1.7 Baso % (Auto) 0.2 Absolute Neuts (auto) 8.8 H Absolute Lymphs (auto) 0.98 Total Counted Not Reportable PT INR D-Dimer Quant (PE/DVT) Sodium Potassium 4.2 Chloride Carbon Dioxide Anion Gap BUN Creatinine Estim Creat Clear Calc Est GFR (MDRD) Af Amer Est GFR (MDRD) Non-Af BUN/Creatinine Ratio Glucose Calcium Magnesium Iron TIBC Iron Saturation Transferrin Ferritin Troponin I TSH Urine Color Yellow Urine Clarity Clear Urine pH 6.5 Ur Specific [place] 1.010 Urine Protein Negative Urine Glucose (UA) Normal Urine Ketones Negative Urine Occult Blood Negative Urine Nitrite Negative Urine Bilirubin Negative Urine Urobilinogen Normal Ur Leukocyte Esterase Negative Urine RBC 0 SEEN Urine WBC 0 SEEN Ur Squamous Epith Cells 0 SEEN Urine Bacteria 0 SEEN Urine Mucus 0 SEEN 10/16/17 05:25 WBC RBC Hgb Hct MCV MCH MCHC RDW RDW Differential Plt Count MPV Immature Gran % (Auto) Neut % (Auto) Lymph % (Auto) [place] % (Auto) Eos % (Auto) Baso % (Auto) Absolute Neuts (auto) Absolute Lymphs (auto) Total Counted PT INR D-Dimer Quant (PE/DVT) Sodium 141 Potassium 4.2 Chloride 106 Carbon Dioxide 26.0 Anion Gap 9 BUN 18 Creatinine 1.03 H Estim Creat Clear Calc 32.87 Est GFR (MDRD) Af Amer 66 Est GFR (MDRD) Non-Af 55 L BUN/Creatinine Ratio 17.5 Glucose 141 H Calcium 8.5 Magnesium Iron TIBC Iron Saturation Transferrin Ferritin Troponin I TSH Urine Color Urine Clarity Urine pH Ur Specific [place] Urine Protein Urine Glucose (UA) Urine Ketones Urine Occult Blood Urine Nitrite Urine Bilirubin Urine Urobilinogen Ur Leukocyte Esterase Urine RBC Urine WBC Ur Squamous Epith Cells Urine Bacteria Urine Mucus POC Glucose 10/16/17 10/15/17 10/15/17 07:06 21:56 17:22 POC Glucose 134 H 129 H 112 H Clinical Impression(s) from Imaging Studies chest CTA 10/15/17 15:49 IMPRESSION: 1. No CTA demonstrated pulmonary embolism or arterial dissection. 2. Cardiomegaly and sequela of coronary artery vascular disease. 3. Loculated pericardial collection. 4. Bilateral pleural effusions. 5. Bilateral basilar airspace disease and/or atelectasis. 6. Right middle lobe pulmonary nodule. Electronically Signed: Stephanie Cabrera MD at 17:53 EDT , Service support , Medical Necessity - Tobacco Use Smoking Status: Former smoker Assessment/Plan All Active Problems (Last Updated 10/15/17 @ 11:58 by Jae Goldberg MD) Near syncope (Acute) Anemia (Acute) Atrial fibrillation with RVR (Acute) Status post coronary artery bypass graft (Acute) This is an 82 years old female patient presented to the emergency room because of near syncope and she was found to have new onset A. fib with RVR as well as anemia, mild hyperkalemia and new small left pleural effusion. She had a recent history of CABG a few days ago. #1 new onset A. fib with RVR: Converted back to sinus rhythm, rate has been stable. EKG from today reviewed, revealed normal sinus rhythm without acute ischemic changes. She is on Coreg, started on amiodarone. Serum potassium and magnesium were normal. TSH is normal. CTA chest done for elevated d-dimer and revealed no PE or dissection, revealed loculated pericardial collection. 2D echocardiogram ordered. Cardiology on the case. Plan to continue same treatment. #2 near syncope: Probably multifactorial secondary to A. fib with RVR, poor oral intake, anorexia and dehydration as well as recent major surgery. Today, she has normal symptoms of dizziness or lightheadedness. Her orthostatic vitals were normal. #3 mild hyperkalemia: Admission potassium is 5.6. No EKG changes related to hyperkalemia. Today's potassium is 4.2, normalized without any interventions. #4 Acute iron deficiency anemia: Probably multifactorial because of recent surgery and poor oral intake. Her serum iron, TIBC and iron saturation are low , serum ferritin is high. Stool for occult blood ordered. Plan: We will give IV Venofer ?1 today, start oral ferrous sulfate tomorrow. #5 Bilateral pleural effusions/small right middle lobe nodule: More on the right side. Likely due to compressive atelectasis. At this time, I doubt active pneumonia. Her white blood cell count is normal. She is afebrile. CTA chest done last night for elevated d-dimer, revealed small right middle lobe nodule. Plan to encourage ambulation and incentive spirometer, chest physiotherapy, pulmonology consult for lung nodule. #6 recent CABG: Surgical incision is clean and dry. She underwent cardiac catheterization on September 25, 2017 that revealed severe triple-vessel disease, went for CABG few days ago she was discharged from [facility] this past Monday. EKG reviewed. Troponin is negative. Continue aspirin, statins, Plavix, Coreg and lisinopril. #7 CAD status post stents and recent CABG: Stable, plan as above. Continue aspirin, Plavix, statins, Coreg and lisinopril. #8 hypertension: Blood pressure stable, continue Coreg and lisinopril. #9 type 2 diabetes mellitus: Blood sugar stable, continue ADA diet, Accu-Cheks, insulin sliding scale, continue metformin and Victoza. #10 hyperlipidemia: Continue statins. #11 DVT prophylaxis: Subcu Lovenox. This note was generated with [employer] dictation software. It may contain incorrect words, spelling, and punctuation that were not noted in checking the note before signing. Code Visit Inpatient E&M: 78980 Subs Hosp L3
--- NOTE | 2017-10-16 08:48 | PCM.CONS.GEN ---
Reason for Consult Date of Consultation: 10/16/17 Reason for Consultation: Pulmonary nodule History of Present Illness: The patient is an 82-year-old female, with a history as outlined below, who presented to the emergency department on October 15 after experiencing a syncopal event. The patient was noted to be in atrial fibrillation with a rapid ventricular rate. The patient has a history of ischemic cardiomyopathy and recently underwent a CABG at [facility]. The patient was just discharged from the hospital approximately 1 week ago. The patient experienced a near syncopal event in the bathroom on the day of her presentation to the hospital following a bowel movement. The patient does have a very limited smoking history, but quit completely 40+ years ago. She does not utilize any inhalers at her baseline, nor is she oxygen dependent. On presentation to the emergency department, the patient was noted to be afebrile, tachycardic but hemodynamically stable. Initial laboratory evaluation revealed elevated white blood cell count to 15,000. Chemistry profile was notable for a potassium of 5.6. D-dimer was elevated to 3.87. Troponin was negative. A CTA chest was obtained, which revealed no evidence for pulmonary embolism. There was incidental note of a right middle lobe pulmonary nodule that measured 2.7 mm. There was also evidence of a loculated pericardial collection along with bilateral pleural effusions. This is the only chest CT available in our system. Past Medical History Past Medical History (Chronic Problems): Chronic Problems (Last Updated 10/15/17 @ 11:58 by Jae Goldberg MD) Myocardial infarction, inferior wall (Chronic) Coronary artery disease (Chronic) Type 2 diabetes mellitus without complications (Chronic) Hyperlipidemia (Chronic) Hypertension (Chronic) H/O right coronary artery stent placement (Chronic ~06/17/17) PCI-BMS-Mid and Prox RCA w/ 2.25 x 18 mm, 2.25 x 14 mm, 2.25 x 12 mm Integrity and 2.5 x 16 mm Rebel 06/17/2017 Medical History: Medical History (Last Updated 10/15/17 @ 11:58 by Jae Goldberg MD) Type 2 diabetes mellitus without complications (Chronic) E11.9 Hyperlipidemia (Chronic) E78.5 Hypertension (Chronic) I10 Allergies No Known Allergies Allergy (Verified 10/15/17 08:06) Home Medications: Ambulatory Orders Medication Instructions Recorded Allopurinol [Zyloprim] 300 mg PO DAILY PRN 06/17/17 Liraglutide [Victoza] 1.8 mg SQ DAILY 06/17/17 Metformin(XR) [Glucophage Xr] 500 mg PO DAILY 06/17/17 Aspirin E.C. [Ecotrin] 81 mg PO DAILY@0800 tab 06/20/17 Atorvastatin Calcium [Lipitor] 40 mg PO QHS #30 tab 06/20/17 Carvedilol [Coreg (Beta Juarez)] 6.25 mg PO BID #60 tab 06/20/17 Lisinopril [Zestril] 5 mg PO DAILY #30 tab 06/20/17 clopidogrel 75 mg tablet 75 mg PO QDAY #90 tab 07/19/17 Surgical History: Surgical History (Last Updated 10/15/17 @ 11:58 by Jae Goldberg MD) H/O right coronary artery stent placement (Chronic) Onset Date: ~06/17/17 Z95.5 PCI-BMS-Mid and Prox RCA w/ 2.25 x 18 mm, 2.25 x 14 mm, 2.25 x 12 mm Integrity and 2.5 x 16 mm Rebel 06/17/2017 History of carpal tunnel release Z98.890 History of cataract surgery Z98.49 History of left heart catheterization Onset Date: ~06/17/17 Z98.890 Surgical History: cataract, coronary bypass surgery, - - Carpal tunnel surgery Psychiatric History: No pertinent psych hx RN CHARGE History: No pertinent RN CHARGE history Lives: Spouse/ Significant Other Smoking Status: Former smoker Alcohol: None Drugs: None - *Family History Maternal Family History: Family History (Last Reviewed 09/22/17 @ 10:03 by Donald Law MD) Mother Breast cancer History Items: Cancer - Breast cancer Paternal Family History: Family History (Last Reviewed 09/22/17 @ 10:03 by Donald Law MD) Mother Breast cancer History Items: No pertinent history Review of Systems Constitutional: Denies: Chills, Fever, Weight Change HEENT: Denies: Head Aches, Sinus Congestion, Sinus Drainage Cardiovascular: Reports: Syncope. Denies: Chest Pain, Palpitations Respiratory: Denies: Cough, Shortness of breath at rest, Sputum production Gastrointestinal: Denies: Abdominal Pain, Nausea, Vomiting Genitourinary: Denies: Dysuria Musculoskeletal: Denies: Joint Pain, Joint Tenderness Skin: Denies: Rash, Wounds Neurological: Denies: Numbness, Tingling, Focal weakness Psychiatric: Denies: Anxiety, Depression, Homicidal Ideations, Suicidal Ideations Hematologic/ Lymphatic: Denies: Easy Bruising, Easy Bleeding Patient Problems: Active and Suspected Problems (Last Updated 10/15/17 @ 11:58 by Jae Goldberg MD) Near syncope (Acute) Anemia (Acute) Atrial fibrillation with RVR (Acute) Status post coronary artery bypass graft (Acute) Objective: The patient's most recent lab work, culture data and imaging studies have all been personally reviewed. - Physical Exam General: Alert, Oriented x3, Cooperative, No apparent distress HEENT: Atraumatic, PERRLA, Normocephalic Oral: No Gingival or Mucosal Lesions/ Ulcerations Neck: Supple, No Nodes, Trachea Midline Lungs: No rhonchi, No wheeze, No rales, Diminished Cardiovascular: Regular rate, Regular Rhythm, Normal S1, Normal S2, No murmurs Abdomen: Bowel Sounds Present, Soft, Non Tender, Non-Distended Extremities: No clubbing, No cyanosis, No edema Skin: No breakdown Musculoskeletal: No Tenderness to Palpation of Joints or Extremities Lymphatic: No Cervical, Supraclavicular, or Inguinal Adenopathy Neurological: Neuro grossly intact Psych/Mental Status: Normal Affect, Appropriate Vital Signs Temp Pulse Resp BP Pulse Ox 98.9 F 88 17 102/55 L 94 10/16/17 03:55 10/16/17 07:05 10/16/17 07:05 10/16/17 04:21 10/16/17 07:05 Oxygen Delivery Method Room Air Weight: 143 lb 4.807 oz Body Mass Index (BMI) 27.1 Orthostatic Vital Signs Start: 10/16/17 04:21 Freq: q24h Status: Active Protocol: Activity Type Activity Date Activity User E-Sign Co-Sign Detail Recorded Client Recorded Date Recorded By Document 10/16/17 04:21 AML [id number] 10/16/17 04:22 AML 10/16/17 04:21 Orthostatic Vitals Standing -Blood Pressure (90/60-120/80) 141/62 H -Extremity Use Left Arm -Pulse Rate (60-100) 89 Sitting -Blood Pressure (90/60-120/80) 116/39 L -Extremity Use Left Arm -Pulse Rate (60-100) 86 Lying -Blood Pressure (90/60-120/80) 102/55 L -Extremity Use Left Arm -Pulse Rate (60-100) 77 Intake and Output for Last 24 Hours 10/14/17 10/15/17 10/16/17 23:59 23:59 23:59 Intake Total 881 / 881 218 / 218 Output Total 100 / 100 Balance 881 / 881 118 / 118 Laboratory Tests Past 24 Hrs 10/15/17 10/15/17 10/15/17 13:20 13:20 13:20 WBC RBC Hgb Hct MCV MCH MCHC RDW RDW Differential Plt Count MPV Immature Gran % (Auto) Neut % (Auto) Lymph % (Auto) Dickenson % (Auto) Eos % (Auto) Baso % (Auto) Absolute Neuts (auto) Absolute Lymphs (auto) Total Counted PT 14.8 INR 1.2 D-Dimer Quant (PE/DVT) Sodium Potassium Chloride Carbon Dioxide Anion Gap BUN Creatinine Estim Creat Clear Calc Est GFR (MDRD) Af Amer Est GFR (MDRD) Non-Af BUN/Creatinine Ratio Glucose Calcium Magnesium 2.5 Iron 27 L TIBC 213 L Iron Saturation 12.7 L Transferrin Pending Ferritin 387 H Troponin I TSH 1.28 Urine Color Urine Clarity Urine pH Ur Specific [place] Urine Protein Urine Glucose (UA) Urine Ketones Urine Occult Blood Urine Nitrite Urine Bilirubin Urine Urobilinogen Ur Leukocyte Esterase Urine RBC Urine WBC Ur Squamous Epith Cells Urine Bacteria Urine Mucus 10/15/17 10/15/17 10/15/17 13:20 13:20 16:23 WBC RBC Hgb Hct MCV MCH MCHC RDW RDW Differential Plt Count MPV Immature Gran % (Auto) Neut % (Auto) Lymph % (Auto) Dickenson % (Auto) Eos % (Auto) Baso % (Auto) Absolute Neuts (auto) Absolute Lymphs (auto) Total Counted PT INR D-Dimer Quant (PE/DVT) 3.87 H* Sodium Potassium Chloride Carbon Dioxide Anion Gap BUN Creatinine Estim Creat Clear Calc Est GFR (MDRD) Af Amer Est GFR (MDRD) Non-Af BUN/Creatinine Ratio Glucose Calcium Magnesium Iron TIBC Iron Saturation Transferrin Ferritin Troponin I 0.027 0.030 TSH Urine Color Urine Clarity Urine pH Ur Specific [place] Urine Protein Urine Glucose (UA) Urine Ketones Urine Occult Blood Urine Nitrite Urine Bilirubin Urine Urobilinogen Ur Leukocyte Esterase Urine RBC Urine WBC Ur Squamous Epith Cells Urine Bacteria Urine Mucus 10/15/17 10/16/17 10/16/17 18:00 04:30 05:25 WBC 10.9 RBC 2.89 L Hgb 8.6 L Hct 27.4 L MCV 94.8 MCH 29.8 MCHC 31.4 L RDW 15.8 H RDW Differential 51.2 H Plt Count 332 MPV 9.2 Immature Gran % (Auto) 0.400 Neut % (Auto) 80.1 H Lymph % (Auto) 9.0 L Dickenson % (Auto) 8.6 Eos % (Auto) 1.7 Baso % (Auto) 0.2 Absolute Neuts (auto) 8.8 H Absolute Lymphs (auto) 0.98 Total Counted Not Reportable PT INR D-Dimer Quant (PE/DVT) Sodium Potassium 4.2 Chloride Carbon Dioxide Anion Gap BUN Creatinine Estim Creat Clear Calc Est GFR (MDRD) Af Amer Est GFR (MDRD) Non-Af BUN/Creatinine Ratio Glucose Calcium Magnesium Iron TIBC Iron Saturation Transferrin Ferritin Troponin I TSH Urine Color Yellow Urine Clarity Clear Urine pH 6.5 Ur Specific [place] 1.010 Urine Protein Negative Urine Glucose (UA) Normal Urine Ketones Negative Urine Occult Blood Negative Urine Nitrite Negative Urine Bilirubin Negative Urine Urobilinogen Normal Ur Leukocyte Esterase Negative Urine RBC 0 SEEN Urine WBC 0 SEEN Ur Squamous Epith Cells 0 SEEN Urine Bacteria 0 SEEN Urine Mucus 0 SEEN 10/16/17 05:25 WBC RBC Hgb Hct MCV MCH MCHC RDW RDW Differential Plt Count MPV Immature Gran % (Auto) Neut % (Auto) Lymph % (Auto) Dickenson % (Auto) Eos % (Auto) Baso % (Auto) Absolute Neuts (auto) Absolute Lymphs (auto) Total Counted PT INR D-Dimer Quant (PE/DVT) Sodium 141 Potassium 4.2 Chloride 106 Carbon Dioxide 26.0 Anion Gap 9 BUN 18 Creatinine 1.03 H Estim Creat Clear Calc 32.87 Est GFR (MDRD) Af Amer 66 Est GFR (MDRD) Non-Af 55 L BUN/Creatinine Ratio 17.5 Glucose 141 H Calcium 8.5 Magnesium Iron TIBC Iron Saturation Transferrin Ferritin Troponin I TSH Urine Color Urine Clarity Urine pH Ur Specific [place] Urine Protein Urine Glucose (UA) Urine Ketones Urine Occult Blood Urine Nitrite Urine Bilirubin Urine Urobilinogen Ur Leukocyte Esterase Urine RBC Urine WBC Ur Squamous Epith Cells Urine Bacteria Urine Mucus POC Glucose 10/16/17 10/15/17 10/15/17 07:06 21:56 17:22 POC Glucose 134 H 129 H 112 H Clinical Impression(s) from Imaging Studies Chest X-Ray 10/15/17 08:23 IMPRESSION: Cardiomegaly with a left-sided pleural effusion. This is new since the previous radiograph. Electronically Signed: Stephanie Cabrera MD at 8:46 EDT , Service support , Chest CTA 10/15/17 15:49 IMPRESSION: 1. No CTA demonstrated pulmonary embolism or arterial dissection. 2. Cardiomegaly and sequela of coronary artery vascular disease. 3. Loculated pericardial collection. 4. Bilateral pleural effusions. 5. Bilateral basilar airspace disease and/or atelectasis. 6. Right middle lobe pulmonary nodule. Electronically Signed: Stephanie Cabrera MD at 17:53 EDT , Service support , Assessment/Plan All Active Problems (Last Updated 10/15/17 @ 11:58 by Jae Goldberg MD) Near syncope (Acute) Anemia (Acute) Atrial fibrillation with RVR (Acute) Status post coronary artery bypass graft (Acute) RECOMMENDATIONS: 1. Given the size of the patient's pulmonary nodule, no additional chest imaging is indicated. 2. Continue amiodarone per cardiology recommendations. 3. Encourage incentive spirometer use and mobilize patient as tolerated. 4. Echocardiogram is pending. 5. Discontinue scheduled bronchodilators. IMPRESSIONS: 1. Incidental subcentimeter pulmonary nodule noted on CT chest There was evidence of a 2.7 mm right middle lobe pulmonary nodule noted on the patient's CTA chest. Although the patient has an extremely remote smoking history, having quit 40+ years ago, she would still be considered a low risk patient. According to the revised 2017 Fleischner Society guidelines for the management of incidentally detected pulmonary nodules, in a low risk individual with a pulmonary nodule less than 6 mm in size, no routine follow-up is recommended. And in high risk individuals, an optional CT at 12 months can be obtained. At this time, I do not recommend any additional chest imaging or follow-up for the pulmonary nodule incidentally noted on the patient's CTA chest. Patient is in agreement with the plan. This note was generated with [employer] dictation software. It may contain incorrect words, spelling, and punctuation that were not noted in checking the note before signing. Code Visit Inpatient E&M: 94606 Init Hosp L3
--- NOTE | 2017-10-16 08:53 | CON.PCM_ITS ---
Reason for Consult Date of Consultation: 10/16/17 Reason for Consultation: Pulmonary nodule History of Present Illness: The patient is an 82-year-old female, with a history as outlined below, who presented to the emergency department on October 15 after experiencing a syncopal event. The patient was noted to be in atrial fibrillation with a rapid ventricular rate. The patient has a history of ischemic cardiomyopathy and recently underwent a CABG at [facility]. The patient was just discharged from the hospital approximately 1 week ago. The patient experienced a near syncopal event in the bathroom on the day of her presentation to the hospital following a bowel movement. The patient does have a very limited smoking history, but quit completely 40+ years ago. She does not utilize any inhalers at her baseline, nor is she oxygen dependent. On presentation to the emergency department, the patient was noted to be afebrile, tachycardic but hemodynamically stable. Initial laboratory evaluation revealed elevated white blood cell count to 15,000. Chemistry profile was notable for a potassium of 5.6. D-dimer was elevated to 3.87. Troponin was negative. A CTA chest was obtained, which revealed no evidence for pulmonary embolism. There was incidental note of a right middle lobe pulmonary nodule that measured 2.7 mm. There was also evidence of a loculated pericardial collection along with bilateral pleural effusions. This is the only chest CT available in our system. Past Medical History Past Medical History (Chronic Problems): Chronic Problems (Last Updated 10/15/17 @ 11:58 by Jae Goldberg MD) Myocardial infarction, inferior wall (Chronic) Coronary artery disease (Chronic) Type 2 diabetes mellitus without complications (Chronic) Hyperlipidemia (Chronic) Hypertension (Chronic) H/O right coronary artery stent placement (Chronic ~06/17/17) PCI-BMS-Mid and Prox RCA w/ 2.25 x 18 mm, 2.25 x 14 mm, 2.25 x 12 mm Integrity and 2.5 x 16 mm Rebel 06/17/2017 Medical History: Medical History (Last Updated 10/15/17 @ 11:58 by Jae Goldberg MD) Type 2 diabetes mellitus without complications (Chronic) E11.9 Hyperlipidemia (Chronic) E78.5 Hypertension (Chronic) I10 Allergies No Known Allergies Allergy (Verified 10/15/17 08:06) Home Medications: Ambulatory Orders Medication Instructions Recorded Allopurinol [Zyloprim] 300 mg PO DAILY PRN 06/17/17 Liraglutide [Victoza] 1.8 mg SQ DAILY 06/17/17 Metformin(XR) [Glucophage Xr] 500 mg PO DAILY 06/17/17 Aspirin E.C. [Ecotrin] 81 mg PO DAILY@0800 tab 06/20/17 Atorvastatin Calcium [Lipitor] 40 mg PO QHS #30 tab 06/20/17 Carvedilol [Coreg (Beta Juarez)] 6.25 mg PO BID #60 tab 06/20/17 Lisinopril [Zestril] 5 mg PO DAILY #30 tab 06/20/17 clopidogrel 75 mg tablet 75 mg PO QDAY #90 tab 07/19/17 Surgical History: Surgical History (Last Updated 10/15/17 @ 11:58 by Jae Goldberg MD) H/O right coronary artery stent placement (Chronic) Onset Date: ~06/17/17 Z95.5 PCI-BMS-Mid and Prox RCA w/ 2.25 x 18 mm, 2.25 x 14 mm, 2.25 x 12 mm Integrity and 2.5 x 16 mm Rebel 06/17/2017 History of carpal tunnel release Z98.890 History of cataract surgery Z98.49 History of left heart catheterization Onset Date: ~06/17/17 Z98.890 Surgical History: cataract, coronary bypass surgery, - - Carpal tunnel surgery Psychiatric History: No pertinent psych hx 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 Denies: Chest Pain, Palpitations Respiratory: Denies: Cough, Shortness of breath at rest, Sputum production Gastrointestinal: Denies: Abdominal Pain, Nausea, Vomiting Genitourinary: Denies: Dysuria Musculoskeletal: Denies: Joint Pain, Joint Tenderness Skin: Denies: Rash, Wounds Neurological: Denies: Numbness, Tingling, Focal weakness Psychiatric: Denies: Anxiety, Depression, Homicidal Ideations, Suicidal Ideations Hematologic/ Lymphatic: Denies: Easy Bruising, Easy Bleeding Patient Problems: Active and Suspected Problems (Last Updated 10/15/17 @ 11:58 by Jae Goldberg MD) Near syncope (Acute) Anemia (Acute) Atrial fibrillation with RVR (Acute) Status post coronary artery bypass graft (Acute) Objective: The patient's most recent lab work, culture data and imaging studies have all been personally reviewed. - Physical Exam General: Alert, Oriented x3, Cooperative, No apparent distress HEENT: Atraumatic, PERRLA, Normocephalic Oral: No Gingival or Mucosal Lesions/ Ulcerations Neck: Supple, No Nodes, Trachea Midline Lungs: No rhonchi, No wheeze, No rales, Diminished Cardiovascular: Regular rate, Regular Rhythm, Normal S1, Normal S2, No murmurs Abdomen: Bowel Sounds Present, Soft, Non Tender, Non-Distended Extremities: No clubbing, No cyanosis, No edema Skin: No breakdown Musculoskeletal: No Tenderness to Palpation of Joints or Extremities Lymphatic: No Cervical, Supraclavicular, or Inguinal Adenopathy Neurological: Neuro grossly intact Psych/Mental Status: Normal Affect, Appropriate Vital Signs Temp Pulse Resp BP Pulse Ox 98.9 F 88 17 102/55 L 94 10/16/17 03:55 10/16/17 07:05 10/16/17 07:05 10/16/17 04:21 10/16/17 07:05 Oxygen Delivery Method Room Air Weight: 143 lb 4.807 oz Body Mass Index (BMI) 27.1 Orthostatic Vital Signs Start: 10/16/17 04:21 Freq: q24h Status: Active Protocol: Activity Type Activity Date Activity User E-Sign Co-Sign Detail Recorded Client Recorded Date Recorded By Document 10/16/17 04:21 AML [id number] 10/16/17 04:22 AML 10/16/17 04:21 Orthostatic Vitals Standing -Blood Pressure (90/60-120/80) 141/62 H -Extremity Use Left Arm -Pulse Rate (60-100) 89 Sitting -Blood Pressure (90/60-120/80) 116/39 L -Extremity Use Left Arm -Pulse Rate (60-100) 86 Lying -Blood Pressure (90/60-120/80) 102/55 L -Extremity Use Left Arm -Pulse Rate (60-100) 77 Intake and Output for Last 24 Hours 10/14/17 10/15/17 10/16/17 23:59 23:59 23:59 Intake Total 881 / 881 218 / 218 Output Total 100 / 100 Balance 881 / 881 118 / 118 Laboratory Tests Past 24 Hrs 10/15/17 10/15/17 10/15/17 13:20 13:20 13:20 WBC RBC Hgb Hct MCV MCH MCHC RDW RDW Differential Plt Count MPV Immature Gran % (Auto) Neut % (Auto) Lymph % (Auto) Vermillion % (Auto) Eos % (Auto) Baso % (Auto) Absolute Neuts (auto) Absolute Lymphs (auto) Total Counted PT 14.8 INR 1.2 D-Dimer Quant (PE/DVT) Sodium Potassium Chloride Carbon Dioxide Anion Gap BUN Creatinine Estim Creat Clear Calc Est GFR (MDRD) Af Amer Est GFR (MDRD) Non-Af BUN/Creatinine Ratio Glucose Calcium Magnesium 2.5 Iron 27 L TIBC 213 L Iron Saturation 12.7 L Transferrin Pending Ferritin 387 H Troponin I TSH 1.28 Urine Color Urine Clarity Urine pH Ur Specific Eckerman Urine Protein Urine Glucose (UA) Urine Ketones Urine Occult Blood Urine Nitrite Urine Bilirubin Urine Urobilinogen Ur Leukocyte Esterase Urine RBC Urine WBC Ur Squamous Epith Cells Urine Bacteria Urine Mucus 10/15/17 10/15/17 10/15/17 13:20 13:20 16:23 WBC RBC Hgb Hct MCV MCH MCHC RDW RDW Differential Plt Count MPV Immature Gran % (Auto) Neut % (Auto) Lymph % (Auto) [place]illion % (Auto) Eos % (Auto) Baso % (Auto) Absolute Neuts (auto) Absolute Lymphs (auto) Total Counted PT INR D-Dimer Quant (PE/DVT) 3.87 H* Sodium Potassium Chloride Carbon Dioxide Anion Gap BUN Creatinine Estim Creat Clear Calc Est GFR (MDRD) Af Amer Est GFR (MDRD) Non-Af BUN/Creatinine Ratio Glucose Calcium Magnesium Iron TIBC Iron Saturation Transferrin Ferritin Troponin I 0.027 0.030 TSH Urine Color Urine Clarity Urine pH Ur Specific Eckerman Urine Protein Urine Glucose (UA) Urine Ketones Urine Occult Blood Urine Nitrite Urine Bilirubin Urine Urobilinogen Ur Leukocyte Esterase Urine RBC Urine WBC Ur Squamous Epith Cells Urine Bacteria Urine Mucus 10/15/17 10/16/17 10/16/17 18:00 04:30 05:25 WBC 10.9 RBC 2.89 L Hgb 8.6 L Hct 27.4 L MCV 94.8 MCH 29.8 MCHC 31.4 L RDW 15.8 H RDW Differential 51.2 H Plt Count 332 MPV 9.2 Immature Gran % (Auto) 0.400 Neut % (Auto) 80.1 H Lymph % (Auto) 9.0 L Vermillion % (Auto) 8.6 Eos % (Auto) 1.7 Baso % (Auto) 0.2 Absolute Neuts (auto) 8.8 H Absolute Lymphs (auto) 0.98 Total Counted Not Reportable PT INR D-Dimer Quant (PE/DVT) Sodium Potassium 4.2 Chloride Carbon Dioxide Anion Gap BUN Creatinine Estim Creat Clear Calc Est GFR (MDRD) Af Amer Est GFR (MDRD) Non-Af BUN/Creatinine Ratio Glucose Calcium Magnesium Iron TIBC Iron Saturation Transferrin Ferritin Troponin I TSH Urine Color Yellow Urine Clarity Clear Urine pH 6.5 Ur Specific Eckerman 1.010 Urine Protein Negative Urine Glucose (UA) Normal Urine Ketones Negative Urine Occult Blood Negative Urine Nitrite Negative Urine Bilirubin Negative Urine Urobilinogen Normal Ur Leukocyte Esterase Negative Urine RBC 0 SEEN Urine WBC 0 SEEN Ur Squamous Epith Cells 0 SEEN Urine Bacteria 0 SEEN Urine Mucus 0 SEEN 10/16/17 05:25 WBC RBC Hgb Hct MCV MCH MCHC RDW RDW Differential Plt Count MPV Immature Gran % (Auto) Neut % (Auto) Lymph % (Auto) Vermillion % (Auto) Eos % (Auto) Baso % (Auto) Absolute Neuts (auto) Absolute Lymphs (auto) Total Counted PT INR D-Dimer Quant (PE/DVT) Sodium 141 Potassium 4.2 Chloride 106 Carbon Dioxide 26.0 Anion Gap 9 BUN 18 Creatinine 1.03 H Estim Creat Clear Calc 32.87 Est GFR (MDRD) Af Amer 66 Est GFR (MDRD) Non-Af 55 L BUN/Creatinine Ratio 17.5 Glucose 141 H Calcium 8.5 Magnesium Iron TIBC Iron Saturation Transferrin Ferritin Troponin I TSH Urine Color Urine Clarity Urine pH Ur Specific Eckerman Urine Protein Urine Glucose (UA) Urine Ketones Urine Occult Blood Urine Nitrite Urine Bilirubin Urine Urobilinogen Ur Leukocyte Esterase Urine RBC Urine WBC Ur Squamous Epith Cells Urine Bacteria Urine Mucus POC Glucose 10/16/17 10/15/17 10/15/17 07:06 21:56 17:22 POC Glucose 134 H 129 H 112 H Clinical Impression(s) from Imaging Studies Chest X-Ray 10/15/17 08:23 IMPRESSION: Cardiomegaly with a left-sided pleural effusion. This is new since the previous radiograph. Electronically Signed: Stephanie Cabrera MD at 8:46 EDT , Service support , Chest CTA 10/15/17 15:49 IMPRESSION: 1. No CTA demonstrated pulmonary embolism or arterial dissection. 2. Cardiomegaly and sequela of coronary artery vascular disease. 3. Loculated pericardial collection. 4. Bilateral pleural effusions. 5. Bilateral basilar airspace disease and/or atelectasis. 6. Right middle lobe pulmonary nodule. Electronically Signed: Stephanie Cabrera MD at 17:53 EDT , Service support , Assessment/Plan All Active Problems (Last Updated 10/15/17 @ 11:58 by Jae Goldberg MD) Near syncope (Acute) Anemia (Acute) Atrial fibrillation with RVR (Acute) Status post coronary artery bypass graft (Acute) RECOMMENDATIONS: 1. Given the size of the patient's pulmonary nodule, no additional chest imaging is indicated. 2. Continue amiodarone per cardiology recommendations. 3. Encourage incentive spirometer use and mobilize patient as tolerated. 4. Echocardiogram is pending. 5. Discontinue scheduled bronchodilators. IMPRESSIONS: 1. Incidental subcentimeter pulmonary nodule noted on CT chest There was evidence of a 2.7 mm right middle lobe pulmonary nodule noted on the patient's CTA chest. Although the patient has an extremely remote smoking history, having quit 40+ years ago, she would still be considered a low risk patient. According to the revised 2017 Fleischner Society guidelines for the management of incidentally detected pulmonary nodules, in a low risk individual with a pulmonary nodule less than 6 mm in size, no routine follow-up is recommended. And in high risk individuals, an optional CT at 12 months can be obtained. At this time, I do not recommend any additional chest imaging or follow-up for the pulmonary nodule incidentally noted on the patient's CTA chest. Patient is in agreement with the plan. This note was generated with [employer] dictation software. It may contain incorrect words, spelling, and punctuation that were not noted in checking the note before signing. Code Visit Inpatient E&M: 62286 Init Hosp L3
[2017-10-16] MEDS: Carvedilol 6.25 MG Tablet PO ×2 (08:57→21:41)
[2017-10-16] MEDS: Aspirin E.C. 81 MG Tablet PO (08:57)
[2017-10-16] MEDS: Amiodarone 200 MG Tablet PO ×2 (08:57→21:41)
[2017-10-16] MEDS: Lisinopril 5 MG Tablet PO (08:57)
[2017-10-16] MEDS: Enoxaparin 40 MG/0.4 ML Syringe SC (08:58)
[2017-10-16 11:41] LABS: Bedside Glucose 150 mg/dL (70-110)
--- NOTE | 2017-10-16 13:29 | CASEMGMT ---
Face to Face with patient for initial transition planning/care coordination assessment. MOO GALLAGHER introduced self and role at [facility], pt voices understanding and consents to assessment at this time. Pt is lying in bed in no distress at this time. Pt is A/O x4 at this time and answers all questions appropriately at this time. Care providers, pharmacy, and demographics verified. See attached link. Pt voices no further concerns/needs at this time. Advised pt to ask for CM if any further questions/concerns/needs arise, voices understanding. CM to follow for any further discharge planning/needs. Resumption order placed at this time. PLAN: Home w/ resumption [facility]. [place] MOO GALLAGHER
[2017-10-16 16:40] LABS: Bedside Glucose 104 mg/dL (70-110)
[2017-10-16] MEDS: Atorvastatin Calcium 40 MG Tablet PO (21:41)
[2017-10-17] VITALS (12 sets, daily range): BP systolic 83–141; BP diastolic 39–62; PULSE 59–72; RESP 16–20; TEMP 36.3–37; O2SAT 94–96
[2017-10-17 01:11] LABS: Bedside Glucose 116 mg/dL (70-110)
--- NOTE | 2017-10-17 02:32 | NURSING ---
pt bp was 83/39, called the hospitalist, 500cc ns bolus then ivf at 75cc/hr
[2017-10-17] MEDS: 0.9% Normal Saline 1,000 ML 75 ML IV (02:39)
[2017-10-17] MEDS: Menthol/Lanolin/Calamine/Znox 113 GM Tube 1 APPLIC TOPICAL (06:21)
[2017-10-17 06:23] LABS: Absolute Lymphocyte Count 1.01 X10^3/ul (0.83-4.51); Absolute Neutrophil Count 7.4 X10^3/uL (2.0-7.7); Basophil# 0.02 X10^3/uL; Basophil% 0.2 % (0-1); Eosinophil# 0.19 X10^3/uL; Hematocrit 25.7 % (37-47); Hemoglobin 7.9 g/dl (12.0-15.0); Lymphocyte # 1.01 X10^3/ul (4.0); Lymphocyte % 10.9 % (19-41); Mean Corp Hgb Conc 30.7 g/gl (32-36); Mean Corpuscular Hgb 28.7 pg (27.0-32.0); Mean Corpuscular Volume 93.5 fL (81-99); Mean Platelet Vol. 9.1 fl (6.2-12.0); Monocyte# 0.72 X10^3/uL; Monocyte% 7.7 % (0-10); Neutrophil # 7.35 X10^3/uL (2.7-7.7); Neutrophil % 79.1 % (47-70); Platelet Count 281 K/mm3 (150-450); RBC Distribution Width CV 16.3 % (11.6-14.6); RBC Distribution Width SD 54.5 fl (35.1-43.9); Red Blood Count 2.75 M/mm3 (4.2-5.4); White Blood Count 9.3 K/mm3 (4.4-11.0)
[2017-10-17 06:26] LABS: POSITIVE COUNT NO; POSITIVE DIFFERENTIAL NO; POSITIVE MORPHOLOGY NO
[2017-10-17 06:40] LABS: Bedside Glucose 152 mg/dL (70-110)
[2017-10-17 06:42] LABS: Anion Gap 10 (5-15); BUN 18 mg/dL (7-18); BUN/Creat Ratio 20.8 RATIO (10-20); Calcium,Total 8.1 mg/dL (8.5-10.1); Chloride 108 mmol/L (98-107); Creatinine, Serum 0.86 mg/dL (0.55-1.02); EST Glomerular Filtration Rate 67 mL/min (>60); Est Glom Filt Rate - Afr Amer 81 mL/min (>60); Estimated Creatinine Clearance 39.37 ml/min; Glucose 137 mg/dL (74-106); Potassium 4.4 mmol/L (3.5-5.1); Sodium Level 139 mmol/L (136-145)
[2017-10-17] MEDS: Insulin Lispro 100 UNIT/ML INSULN.PEN SQ ×2 (08:27→11:26)
[2017-10-17] MEDS: Aspirin E.C. 81 MG Tablet PO (08:28)
[2017-10-17] MEDS: Ferrous Sulfate 325 MG Tablet PO (08:28)
[2017-10-17 10:09] LABS: Hematocrit 28.6 % (37-47); Hemoglobin 8.7 g/dl (12.0-15.0)
[2017-10-17] MEDS: Carvedilol 6.25 MG Tablet PO (10:50)
[2017-10-17] MEDS: Lisinopril 5 MG Tablet PO (10:50)
[2017-10-17] MEDS: Amiodarone 200 MG Tablet PO (10:50)
[2017-10-17] MEDS: Enoxaparin 40 MG/0.4 ML Syringe SC (10:51)
--- NOTE | 2017-10-17 11:01 | DCINST_ITS ---
- Discharge Diagnoses Current Active Problems: Current Active and Chronic Problems (Last Updated 10/15/17 @ 11:58 by Jae Goldberg MD) Myocardial infarction, inferior wall (Chronic) Near syncope (Acute) Anemia (Acute) Atrial fibrillation with RVR (Acute) Status post coronary artery bypass graft (Acute) Coronary artery disease (Chronic) You will use the following diet at home:: Calorie/Carbohydrate Controlled ( specify 1200, 1400, etc) - 1800 YURI., Cardiac Your food should be the consistency of: Regular Discharge Activity: Return to Normal Activity Weight Bearing Status: Weight bearing as tolerated Call your doctor if you observe: Fever of 101 or Higher, Shortness of breath, Dizziness, Fainting spells, Chest pain, Increased palpitations (irregular heartbeat), Uncontrolled pain Allergies/Adverse Reactions: Allergies No Known Allergies Allergy (Verified 10/15/17 08:06) Medications to take at Discharge Allopurinol [Zyloprim] 300 mg PO DAILY PRN 06/17/17 Liraglutide [Victoza] 1.8 mg SQ DAILY 06/17/17 Metformin(XR) [Glucophage Xr] 500 mg PO DAILY 06/17/17 Aspirin E.C. [Ecotrin] 81 mg PO DAILY@0800 tab 06/20/17 Atorvastatin Calcium [Lipitor] 40 mg PO QHS #30 tab 06/20/17 Carvedilol [Coreg (Beta Juarez)] 6.25 mg PO BID #60 tab 06/20/17 Lisinopril [Zestril] 5 mg PO DAILY #30 tab 06/20/17 clopidogrel 75 mg tablet 75 mg PO QDAY #90 tab 07/19/17 Amiodarone HCl [Cordarone] 200 mg PO BID #90 tab 10/17/17 Ferrous Sulfate 325 mg PO BIDCM #90 tab 10/17/17 The following prescriptions were given: Amiodarone HCl [Cordarone] 200 mg PO BID #90 tab Ferrous Sulfate 325 mg PO BIDCM #90 tab Primary Care Physician: Chelita Pascual [Primary Care Provider] - Please follow up with your Primary Care Physician in: 1 WEEK. Test Results: Test results from this visit will be discussed in further detail at your follow- up appointment, if applicable. Please Follow Up With: Donald Law MD When: please call his office.
[2017-10-17] MEDS: Albuterol 2.5 MG/3 ML VIAL.NEB. INHALATION (11:12)
[2017-10-17 12:00] LABS: Bedside Glucose 176 mg/dL (70-110)
--- NOTE | 2017-10-17 16:06 | PCM.DC.SUM ---
Discharge Date and Diagnosis Date of Admission: 10/15/17 Date of Discharge: 10/17/17 - Primary Discharge Diagnosis #1 new onset A. fib with RVR. #2 near-syncope. #3 acute iron deficiency anemia. #4 mild hyperkalemia. #5 bilateral pleural effusion/atelectasis. #6 small right middle lobe nodule. #7 status post recent CABG. - Secondary Discharge Diagnosis Chronic Problems (Last Updated 10/15/17 @ 11:58 by Jae Goldberg MD) Myocardial infarction, inferior wall (Chronic) Coronary artery disease (Chronic) Type 2 diabetes mellitus without complications (Chronic) Hyperlipidemia (Chronic) Hypertension (Chronic) H/O right coronary artery stent placement (Chronic ~06/17/17) PCI-BMS-Mid and Prox RCA w/ 2.25 x 18 mm, 2.25 x 14 mm, 2.25 x 12 mm Integrity and 2.5 x 16 mm Rebel 06/17/2017 Hospital Course and Treatment Imaging Results: Clinical Impression(s) from Imaging Studies Chest X-Ray 10/15/17 08:23 IMPRESSION: Cardiomegaly with a left-sided pleural effusion. This is new since the previous radiograph. Electronically Signed: Stephanie Cabrera MD at 8:46 EDT , Service support , Chest CTA 10/15/17 15:49 IMPRESSION: 1. No CTA demonstrated pulmonary embolism or arterial dissection. 2. Cardiomegaly and sequela of coronary artery vascular disease. 3. Loculated pericardial collection. 4. Bilateral pleural effusions. 5. Bilateral basilar airspace disease and/or atelectasis. 6. Right middle lobe pulmonary nodule. Electronically Signed: Stephanie Cabrera MD at 17:53 EDT , Service support , Consultations 10/15/17 18:30 Consult: Onc/Wound/foot cutter Routine Comment: left buttock Dr. Law, cardiology. Operations: None Procedures: 2-D Echocardiogram, EKG Summary of Care Provided: Patient seen and examined on the day of discharge and appeared to be stable to be discharged home. She has no new complaints. She has no more dizziness or lightheadedness. She has been ambulating without any difficulties. Her vital signs on the day of discharge was stable and orthostatic vitals were unremarkable. - Physical Exam General: Alert, Oriented x3, Cooperative, No apparent distress. HEENT: Atraumatic, PERRLA, EOMI. Neck: Supple, No JVD, Negative Carotid Bruits, Trachea Midline, Thyroid Normal. Lungs: Diminished breath sounds bilateral, otherwise clear, No rhonchi, No wheeze, No rales. Cardiovascular: Regular rate, Regular Rhythm, Normal S1, Normal S2, PMI Normal. Abdomen: Bowel Sounds Present, Soft, Non Tender, Non-Distended, No Hepato-splenomegaly. Extremities: No clubbing, No cyanosis, No edema Skin: No rashes, No breakdown Neurological: Neuro grossly intact Vital Signs are stable. Hospital course: This is an 82 years old female patient presented to the emergency room because of near syncope and she was found to have new onset A. fib with RVR as well as anemia, mild hyperkalemia and new small left pleural effusion. She had a recent history of CABG a few days ago. #1 new onset A. fib with RVR: Patient converted back to sinus rhythm without interventions. She was continued on Coreg for rate control and started on amiodarone during this admission. Repeat EKG revealed normal sinus rhythm without evidence for acute ischemic changes. Serum potassium and magnesium were normal. TSH was normal. CTA chest done for elevated d-dimer and revealed no PE or dissection, revealed loculated pericardial collection. 2D echocardiogram revealed normal LV size and function, ejection fraction 65%, no evidence of diastolic dysfunction. Patient discharged home on Coreg and amiodarone for rate control, was not started on anticoagulation because of recent CABG and according to cardiology recommendations. #2 near syncope: Probably multifactorial secondary to A. fib with RVR, poor oral intake, anorexia and dehydration as well as recent major surgery. She was treated with IV fluids and his blood pressure stabilized. #3 mild hyperkalemia: Admission potassium is 5.6. No EKG changes related to hyperkalemia. Discharge potassium is 4.2, normalized without any interventions. #4 Acute iron deficiency anemia: Probably multifactorial because of recent surgery and poor oral intake. Her serum iron, TIBC and iron saturation are low, serum ferritin is high. Stool for occult blood ordered. She received 1 dose of IV iron sucrose and started on a supplement of ferrous sulfate 325 mg p.o. twice daily. #5 Bilateral pleural effusions/small right middle lobe nodule: The effusion attributed to compressive atelectasis and postsurgical changes as patient has recent CABG. There was no evidence of pneumonia. Patient remained afebrile throughout the admission, no leukocytosis, no symptoms suggestive of pneumonia and her pulse ox maintained normally on room air. CTA chest done last night for elevated d-dimer, revealed small right middle lobe nodule. Pulmonology consulted regarding the small right middle lobe nodule and based on the size, no additional chest imaging is recommended. #6 recent CABG: Surgical incision is clean and dry. She underwent cardiac catheterization on September 25, 2017 that revealed severe triple-vessel disease, went for CABG few days ago she was discharged from [facility] this past Monday. EKG revealed no acute ischemic changes. Troponin is negative. Continued on aspirin, statins, Plavix, Coreg and lisinopril. Patient discharged home with home health in a stable medical condition, discharged on Coreg and amiodarone for rate control, no anticoagulation started, discharged on iron supplements, continued on her other chronic home medication without any changes, recommended follow-up with PCP in 1 week and follow-up with cardiology according to Dr. Law recommendations. This note was generated with [employer] dictation software. It may contain incorrect words, spelling, and punctuation that were not noted in checking the note before signing. Discharge Activity: Return to Normal Activity Weight Bearing Status: Weight bearing as tolerated Call your doctor if you observe: Fever of 101 or Higher, Shortness of breath, Dizziness, Fainting spells, Chest pain, Increased palpitations (irregular heartbeat), Uncontrolled pain Home Medications: Medications to take at Discharge Allopurinol [Zyloprim] 300 mg PO DAILY PRN 06/17/17 Liraglutide [Victoza] 1.8 mg SQ DAILY 06/17/17 Metformin(XR) [Glucophage Xr] 500 mg PO DAILY 06/17/17 Aspirin E.C. [Ecotrin] 81 mg PO DAILY@0800 tab 06/20/17 Atorvastatin Calcium [Lipitor] 40 mg PO QHS #30 tab 06/20/17 Carvedilol [Coreg (Beta Juarez)] 6.25 mg PO BID #60 tab 06/20/17 Lisinopril [Zestril] 5 mg PO DAILY #30 tab 06/20/17 clopidogrel 75 mg tablet 75 mg PO QDAY #90 tab 07/19/17 Amiodarone HCl [Cordarone] 200 mg PO BID #90 tab 10/17/17 Ferrous Sulfate 325 mg PO BIDCM #90 tab 10/17/17 Following Prescrptions Were Given to Patient: Amiodarone HCl [Cordarone] 200 mg PO BID #90 tab Ferrous Sulfate 325 mg PO BIDCM #90 tab Primary Care Physician: Chelita Pascual [Primary Care Provider] - Please follow up with your Primary Care Physician in: 1 WEEK. Please Follow Up With: Donald Law MD When: please call his office. Disposition: Home with Home Health Minutes spent on discharge:: 35 Patient Condition:: Stable Medical Necessity - Tobacco Use Smoking Status: Former smoker Meaningful Use Info Meaningful Use Diagnoses (Choose all that apply): None applicable Code Visit Inpatient E&M: 74674 Disch Hosp
--- NOTE | 2017-10-17 16:15 | DS.PCM_ITS ---
Discharge Date and Diagnosis Date of Admission: 10/15/17 Date of Discharge: 10/17/17 - Primary Discharge Diagnosis #1 new onset A. fib with RVR. #2 near-syncope. #3 acute iron deficiency anemia. #4 mild hyperkalemia. #5 bilateral pleural effusion/atelectasis. #6 small right middle lobe nodule. #7 status post recent CABG. - Secondary Discharge Diagnosis Chronic Problems (Last Updated 10/15/17 @ 11:58 by Jae Goldberg MD) Myocardial infarction, inferior wall (Chronic) Coronary artery disease (Chronic) Type 2 diabetes mellitus without complications (Chronic) Hyperlipidemia (Chronic) Hypertension (Chronic) H/O right coronary artery stent placement (Chronic ~06/17/17) PCI-BMS-Mid and Prox RCA w/ 2.25 x 18 mm, 2.25 x 14 mm, 2.25 x 12 mm Integrity and 2.5 x 16 mm Rebel 06/17/2017 Hospital Course and Treatment Imaging Results: Clinical Impression(s) from Imaging Studies Chest X-Ray 10/15/17 08:23 IMPRESSION: Cardiomegaly with a left-sided pleural effusion. This is new since the previous radiograph. Electronically Signed: Stephanie Cabrera MD at 8:46 EDT , Service support , Chest CTA 10/15/17 15:49 IMPRESSION: 1. No CTA demonstrated pulmonary embolism or arterial dissection. 2. Cardiomegaly and sequela of coronary artery vascular disease. 3. Loculated pericardial collection. 4. Bilateral pleural effusions. 5. Bilateral basilar airspace disease and/or atelectasis. 6. Right middle lobe pulmonary nodule. 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 Law, cardiology. Operations: None Procedures: 2-D Echocardiogram, EKG Summary of Care Provided: Patient seen and examined on the day of discharge and appeared to be stable to be discharged home. She has no new complaints. She has no more dizziness or lightheadedness. She has been ambulating without any difficulties. Her vital signs on the day of discharge was stable and orthostatic vitals were unremarkable. - Physical Exam General: Alert, Oriented x3, Cooperative, No apparent distress. HEENT: Atraumatic, PERRLA, EOMI. Neck: Supple, No JVD, Negative Carotid Bruits, Trachea Midline, Thyroid Normal. Lungs: Diminished breath sounds bilateral, otherwise clear, No rhonchi, No wheeze, No rales. Cardiovascular: Regular rate, Regular Rhythm, Normal S1, Normal S2, PMI Normal. Abdomen: Bowel Sounds Present, Soft, Non Tender, Non-Distended, No Hepato- splenomegaly. Extremities: No clubbing, No cyanosis, No edema Skin: No rashes, No breakdown Neurological: Neuro grossly intact Vital Signs are stable. Hospital course: This is an 82 years old female patient presented to the emergency room because of near syncope and she was found to have new onset A. fib with RVR as well as anemia, mild hyperkalemia and new small left pleural effusion. She had a recent history of CABG a few days ago. #1 new onset A. fib with RVR: Patient converted back to sinus rhythm without interventions. She was continued on Coreg for rate control and started on amiodarone during this admission. Repeat EKG revealed normal sinus rhythm without evidence for acute ischemic changes. Serum potassium and magnesium were normal. TSH was normal. CTA chest done for elevated d-dimer and revealed no PE or dissection, revealed loculated pericardial collection. 2D echocardiogram revealed normal LV size and function, ejection fraction 65%, no evidence of diastolic dysfunction. Patient discharged home on Coreg and amiodarone for rate control, was not started on anticoagulation because of recent CABG and according to cardiology recommendations. #2 near syncope: Probably multifactorial secondary to A. fib with RVR, poor oral intake, anorexia and dehydration as well as recent major surgery. She was treated with IV fluids and his blood pressure stabilized. #3 mild hyperkalemia: Admission potassium is 5.6. No EKG changes related to hyperkalemia. Discharge potassium is 4.2, normalized without any interventions. #4 Acute iron deficiency anemia: Probably multifactorial because of recent surgery and poor oral intake. Her serum iron, TIBC and iron saturation are low , serum ferritin is high. Stool for occult blood ordered. She received 1 dose of IV iron sucrose and started on a supplement of ferrous sulfate 325 mg p.o. twice daily. #5 Bilateral pleural effusions/small right middle lobe nodule: The effusion attributed to compressive atelectasis and postsurgical changes as patient has recent CABG. There was no evidence of pneumonia. Patient remained afebrile throughout the admission, no leukocytosis, no symptoms suggestive of pneumonia and her pulse ox maintained normally on room air. CTA chest done last night for elevated d-dimer, revealed small right middle lobe nodule. Pulmonology consulted regarding the small right middle lobe nodule and based on the size, no additional chest imaging is recommended. #6 recent CABG: Surgical incision is clean and dry. She underwent cardiac catheterization on September 25, 2017 that revealed severe triple-vessel disease, went for CABG few days ago she was discharged from [facility] this past Monday. EKG revealed no acute ischemic changes. Troponin is negative. Continued on aspirin, statins, Plavix, Coreg and lisinopril. Patient discharged home with home health in a stable medical condition, discharged on Coreg and amiodarone for rate control, no anticoagulation started , discharged on iron supplements, continued on her other chronic home medication without any changes, recommended follow-up with PCP in 1 week and follow-up with cardiology according to Dr. Law recommendations. This note was generated with [employer] dictation software. It may contain incorrect words, spelling, and punctuation that were not noted in checking the note before signing. Discharge Activity: Return to Normal Activity Weight Bearing Status: Weight bearing as tolerated Call your doctor if you observe: Fever of 101 or Higher, Shortness of breath, Dizziness, Fainting spells, Chest pain, Increased palpitations (irregular heartbeat), Uncontrolled pain Home Medications: Medications to take at Discharge Allopurinol [Zyloprim] 300 mg PO DAILY PRN 06/17/17 Liraglutide [Victoza] 1.8 mg SQ DAILY 06/17/17 Metformin(XR) [Glucophage Xr] 500 mg PO DAILY 06/17/17 Aspirin E.C. [Ecotrin] 81 mg PO DAILY@0800 tab 06/20/17 Atorvastatin Calcium [Lipitor] 40 mg PO QHS #30 tab 06/20/17 Carvedilol [Coreg (Beta Juarez)] 6.25 mg PO BID #60 tab 06/20/17 Lisinopril [Zestril] 5 mg PO DAILY #30 tab 06/20/17 clopidogrel 75 mg tablet 75 mg PO QDAY #90 tab 07/19/17 Amiodarone HCl [Cordarone] 200 mg PO BID #90 tab 10/17/17 Ferrous Sulfate 325 mg PO BIDCM #90 tab 10/17/17 Following Prescrptions Were Given to Patient: Amiodarone HCl [Cordarone] 200 mg PO BID #90 tab Ferrous Sulfate 325 mg PO BIDCM #90 tab Primary Care Physician: Chelita Pascual [Primary Care Provider] - Please follow up with your Primary Care Physician in: 1 WEEK. Please Follow Up With: Donald Law MD When: please call his office. Disposition: Home with Home Health Minutes spent on discharge:: 35 Patient Condition:: Stable Medical Necessity - Tobacco Use Smoking Status: Former smoker Meaningful Use Info Meaningful Use Diagnoses (Choose all that apply): None applicable Code Visit Inpatient E&M: 07067 Disch Hosp
[2017-10-18 11:15] LABS: Transferrin 179 mg/dL (200-370)
--- NOTE | 2017-10-18 15:35 | CASEMGMT ---
Follow-up Call: Follow-up call placed to patient. Voicemail left with return contact information.
== END 2017-10-17 12:50 | disposition home health service (06) | DRG 309 ==
LOC: ED 08:46 → PCU 12:03
PROVIDERS: Internal Medicine Cardiovascular Disease; Admitting Provider Hospitalist; Emergency Provider Emergency Medicine; Family Provider Nurse Practitioner; PCP Nurse Practitioner; Visit Provider Hospitalist
DX: I48.91 Unspecified atrial fibrillation (principal); R55 Syncope and collapse; J90 Pleural effusion, not elsewhere classified; E87.5 Hyperkalemia; E86.0 Dehydration; D50.9 Iron deficiency anemia, unspecified; R91.1 Solitary pulmonary nodule; I25.10 Atherosclerotic heart disease of native coronary artery without angina pectoris; E11.9 Type 2 diabetes mellitus without complications; I10 Essential (primary) hypertension; E78.5 Hyperlipidemia, unspecified; I25.2 Old myocardial infarction; Z79.82 Long term (current) use of aspirin; Z79.84 Long term (current) use of oral hypoglycemic drugs; Z79.899 Other long term (current) drug therapy; Z87.891 Personal history of nicotine dependence; Z95.5 Presence of coronary angioplasty implant and graft; Z95.1 Presence of aortocoronary bypass graft
CPT/HCPCS: 36415; 71045; 71275; 80048; 81001; 82274; 82728; 82962; 83540; 83550; 83735; 84132; 84443; 84466; 84484; 85014; 85018; 85025; 85379; 85610; 93005; 93306; 94640; 97116; 97162; 97166; 97530; 97535; 99285; J1756; J7030; J7040; Q9967; A4216; J1940

== ENCOUNTER 2017-10-18 07:12 | Outpatient (RCR) | payer MEDICARE, SELFPAY ==
[2017-06-19 08:53] VITALS: BMI 28.1
[2017-10-18 00:57] VITALS: BP 126/74; BP 142/70
== END 2017-11-17 23:59 ==
LOC: CR 07:12
PROVIDERS: Family Provider Nurse Practitioner; PCP Nurse Practitioner; Visit Provider Internal Medicine Cardiovascular Disease
DX: I25.10 Atherosclerotic heart disease of native coronary artery without angina pectoris (principal); I21.11 ST elevation (STEMI) myocardial infarction involving right coronary artery; E78.00 Pure hypercholesterolemia, unspecified; I10 Essential (primary) hypertension; Z95.5 Presence of coronary angioplasty implant and graft
CPT/HCPCS: 93798

== ENCOUNTER → 2017-11-09 13:57 | Outpatient (CLI) | payer MEDICARE, SELFPAY ==
[2017-06-19 08:53] VITALS: BMI 28.1
[2017-11-09 14:30] VITALS: BP 103/36; PULSE 68; RESP 16; O2SAT 98; BMI 25.9
[2017-11-09 14:45] VITALS: BP 108/42; PULSE 67; RESP 16; O2SAT 97
[2017-11-09 14:52] VITALS: BP 96/47; PULSE 70; RESP 16; O2SAT 98
[2017-11-09 15:02] VITALS: BP 105/48; PULSE 66; RESP 16; O2SAT 99
[2017-11-09 15:20] VITALS: BP 101/48; PULSE 65; RESP 16; O2SAT 98
== END ==
PROVIDERS: Family Provider Nurse Practitioner; PCP Nurse Practitioner
DX: J90 Pleural effusion, not elsewhere classified (principal)
CPT/HCPCS: 32555; 71046

== ENCOUNTER → 2017-12-01 12:44 | Outpatient (CLI) | payer MEDICARE, SELFPAY ==
[2017-06-19 08:53] VITALS: BMI 28.1
--- NOTE | 2017-12-01 12:54 | PCM.CR.HP2 ---
CR - History & Physical - General Arrival date:: 12/01/17 Arrival time:: 12:54 Date of Referral:: 11/16/17 Date of CR Evaluation:: 12/01/17 Referring Physician: Dr. Donald Law Primary Diagnosis: Z95.1 CABG 10/03/17 - History of Present Cardiac Event Onset Date: Enter Onset Date of cardiac illnesses in Comment field below Coronary Artery Bypass Graft:: Yes PTCA or coronary stenting:: Yes - Medications Home Medications: Ambulatory Orders Medication Instructions Recorded Allopurinol [Zyloprim] 300 mg PO DAILY PRN 06/17/17 Aspirin E.C. [Ecotrin] 81 mg PO DAILY@0800 tab 06/20/17 Atorvastatin Calcium [Lipitor] 40 mg PO QHS #30 tab 06/20/17 Carvedilol [Coreg (Beta Juarez)] 6.25 mg PO BID #60 tab 06/20/17 Lisinopril [Zestril] 5 mg PO DAILY #30 tab 06/20/17 clopidogrel 75 mg tablet 75 mg PO QDAY #90 tab 07/19/17 Amiodarone HCl [Cordarone] 200 mg PO BID #90 tab 10/17/17 Ferrous Sulfate 325 mg PO BIDCM #90 tab 10/17/17 furosemide 20 mg tablet 20 mg PO QDAY 11/03/17 liraglutide 0.6 mg/0.1 mL (18 mg/3 0.6 mg SC QDAY 11/03/17 mL) subcutaneous pen injector - Allergies Allergies/Adverse Reactions: Allergies No Known Allergies Allergy (Verified 11/03/17 11:48) - Sleep Disorder Evaluation Hx of Sleep Apnea: No Do you snore loudly (louder than talking or can be heard through closed doors)?: Yes Do you often feel tired/ fatigued/ sleepy during daytime?: Yes Has anyone observed you stop breathing during sleep?: No - declines sleep study History of Hypertension (for STOP score): Yes STOP Results: Positive Advanced Directives - Advanced Directives Power of Spa Host: No Living Will: No Advance Directives Information Provided: No Advance Directives on File: No DNR Order?:: No Past Medical History - Past Medical Illness Medical History: Past Medical History (Last Updated 11/03/17 @ 12:25 by Kamala Mixon) New onset atrial fibrillation (Acute) I48.91 Atherosclerosis of coronary artery of [place] heart without angina pectoris (Chronic) I25.10 CABG x 4 RODRIGUEZ-LAD, SVG-OM1, SVG-OM2, SVG-PDA 10/03/17 @ [facility] PCI-BMS-Mid and Prox RCA w/ 2.25 x 18 mm, 2.25 x 14 mm, 2.25 x 12 mm Integrity and 2.5 x 16 mm Rebel 06/17/2017 Myocardial infarction, inferior wall (Chronic) I21.19 Near syncope (Acute) R55 Atrial fibrillation with RVR (Resolved) I48.91 Type 2 diabetes mellitus without complications (Chronic) E11.9 Hyperlipidemia (Chronic) E78.5 Hypertension (Chronic) I10 Iron deficiency anemia D50.9 Anemia (Resolved) D64.9 - Past Surgical History Surgical History: Past Surgical History (Last Updated 11/03/17 @ 12:25 by Kamala Mixon) H/O coronary artery bypass surgery (Acute) Onset Date: 10/03/17 Z95.1 CABG x 4 RODRIGUEZ-LAD, SVG-OM1, SVG-OM2, SVG-PDA 10/03/17 @ [facility] H/O right coronary artery stent placement (Chronic) Onset Date: ~06/17/17 Z95.5 PCI-BMS-Mid and Prox RCA w/ 2.25 x 18 mm, 2.25 x 14 mm, 2.25 x 12 mm Integrity and 2.5 x 16 mm Rebel 06/17/2017 History of carpal tunnel release Z98.890 History of cataract surgery Z98.49 History of left heart catheterization Onset Date: 09/25/17 Z98.890 Surgical History: cataract, coronary bypass surgery, - - Family History Summary Family History: Family History (Last Reviewed 11/03/17 @ 12:12 by Donald Law MD) Mother Breast cancer Social History - Smoking History Smoking Status: Former smoker Years Smokin Packs Smoked per Day: 0.5 Hx Tobacco Use: Yes Hx Smoking Exposure: Yes - Alcohol Use Alcohol Usage: No - Substance Abuse Hx Substance Use: No - Occupation Occupation (List type of work in comments):: Retired - Hobbies, Recreation, Social Activities Hobbies: Other - cards, shopping Recreational Activities: I am able to engage in all my recreational activities Social Environment - Status Marital Status: - Current Living Arrangements Living Environment:: Spouse - Children Do any of your children live nearby?: Yes - Safety Do you feel safe in your surroundings?: Yes - Assistance Do you need any assistance at home?: none Review of Systems - Review of Systems Hints: Right click = Denies (Slash). Left click = Reports ([place]) Review of Present Symptoms: Reports: Shortness of Breath at Rest, Fatigue, Appetite - Normal, Appetite - Special Diet, Sleep - Normal. Denies: Shortness of Breath with Exertion, PVD, Operative Discomfort, Angina, Wound Healing, Dizziness/Lightheadedness, Heart Arrhythmia/Irregularities, Sexual Changes - Pain Is Patient Pain Free?: Yes Risk Factor Assessment - Chief Complaint Chief Complaint: Z95.1 CABG - Vital Signs Pulse Ox: 97 - Pulse Pulse Rate: 73 Pulse Rhythm: Regular - Hypertension Blood Pressure Sitting - Right Arm: 142/74 - Diabetes Diabetic History: Type II Nutrition Referral for Diabetes: No - Obesity Height: 1.55 m Weight:: 62.142 kg Weight in Pounds: 137.0 lbs Weight Source: Standing Scale Body Mass Index (BMI): 25.9 Nutritional Referral for Obesity: No - Physical Inactivity Physical Inactivity: Reg Exercise 30 min/day - Risk Stratification Risk Guidelines: Moderate Risk: Risk Factor for Smoking, Risk Factor for Obesity, Risk Factor for Sedentary Lifestyle, Risk Factor for Depression, Highest Risk: Risk Factor for Dyslipidemia, Risk Factor for Diabetes, Risk Factor for Hypertension - For Smoking Smoking Risk Guidelines: Smoking Low Risk: None or quit greater than 6 months ago. Smoking Moderate Risk: Smoker or quit 6 months or less ago. Smoking High Risk: Smoker - For Dyslipidemia Dyslipidemia Risk Guidelines: Low Risk: Moderate Risk: High Risk: 15-25% fat 25.1-29% fat >/= 30% fat. <7% sat fat 7-9% sat fat >9% sat fat. <150 mg chol 150-299 mg chol >/= 300 mg chol. LDL <100 LDL 100-129 LDL >/= 130. Chol/HDL ratio <5.0 Chol/HDL ratio 5.0-6.0 Chol/HDL ratio >6.0. Triglycerides <100 Triglycerides 100-149 Triglycerides >/= 150 - For Diabetes Mellitus Diabetes Risk Guidelines: Diabetes Low Risk: HgA1c <6.5% and/or FBG <120. Diabetes Moderate Risk: HgA1c 6.6-7.9% and/or FBG 120-180. Diabetes High Risk: HgA1c >/= 8% and/or FBG >180 - For Obesity/Overweight Obesity/Overweight Risk Guidelines: Obesity Low Risk: BMI <25.0. Obesity Moderate Risk: BMI 25-29.9. Obesity High Risk: BMI >/= 30.0 - For Hypertension Hypertension Risk Guidelines: Hypertension Low Risk: Systolic <120 and Diastolic <80. Hypertension Moderate Risk: Systolic 120-139 and Diastolic 80-89. Hypertension High Risk: Systolic >/= 140 and Diastolic >/= 90 - For Sedentary Lifestyle Sedentary Lifestyle Risk Guidelines: Sedentary Lifestyle Low Risk: >/= 1,500 kcal/week. Sedentary Lifestyle Moderate Risk: 700-1,499 kcal/week. Sedentary Lifestyle High Risk: < 700 kcal/week - For Depression Depression Risk Guidelines: Depression Low Risk: Not clinically depressed. Depression Moderate Risk: Mildly depressed. Depression High Risk: Clinically depressed - Family History Family History: Family History (Last Reviewed 11/03/17 @ 12:12 by Donald Law MD) Mother Breast cancer Motivation - Motivation to Participate On a scale of 1 to 10, how prepared are you to commit to attending program?: 8 What do you see as barriers to successfully being able to complete the program?: none What do you see as the benefits of succesfully completing the program? In other words, what do you hope to get out of participating in the program?: strength, driving Are there issues you are dealing with that will interfere with completing the program?: nnoe Do you have a spouse or signficant other, family or friends who will help support you to complete the program?: yes
--- NOTE | 2017-12-01 12:58 | CR.HP_ITS ---
CR - History & Physical - General Arrival date:: 12/01/17 Arrival time:: 12:54 Date of Referral:: 11/16/17 Date of CR Evaluation:: 12/01/17 Referring Physician: Dr. Donald Law Primary Diagnosis: Z95.1 CABG 10/03/17 - History of Present Cardiac Event Onset Date: Enter Onset Date of cardiac illnesses in Comment field below Coronary Artery Bypass Graft:: Yes PTCA or coronary stenting:: Yes - Medications Home Medications: Ambulatory Orders Medication Instructions Recorded Allopurinol [Zyloprim] 300 mg PO DAILY PRN 06/17/17 Aspirin E.C. [Ecotrin] 81 mg PO DAILY@0800 tab 06/20/17 Atorvastatin Calcium [Lipitor] 40 mg PO QHS #30 tab 06/20/17 Carvedilol [Coreg (Beta Juarez)] 6.25 mg PO BID #60 tab 06/20/17 Lisinopril [Zestril] 5 mg PO DAILY #30 tab 06/20/17 clopidogrel 75 mg tablet 75 mg PO QDAY #90 tab 07/19/17 Amiodarone HCl [Cordarone] 200 mg PO BID #90 tab 10/17/17 Ferrous Sulfate 325 mg PO BIDCM #90 tab 10/17/17 furosemide 20 mg tablet 20 mg PO QDAY 11/03/17 liraglutide 0.6 mg/0.1 mL (18 mg/3 0.6 mg SC QDAY 11/03/17 mL) subcutaneous pen injector - Allergies Allergies/Adverse Reactions: Allergies No Known Allergies Allergy (Verified 11/03/17 11:48) - Sleep Disorder Evaluation Hx of Sleep Apnea: No Do you snore loudly (louder than talking or can be heard through closed doors)? : Yes Do you often feel tired/ fatigued/ sleepy during daytime?: Yes Has anyone observed you stop breathing during sleep?: No - declines sleep study History of Hypertension (for STOP score): Yes STOP Results: Positive Advanced Directives - Advanced Directives Power of On Air Announcer: No Living Will: No Advance Directives Information Provided: No Advance Directives on File: No DNR Order?:: No Past Medical History - Past Medical Illness Medical History: Past Medical History (Last Updated 11/03/17 @ 12:25 by Kamala Mixon) New onset atrial fibrillation (Acute) I48.91 Atherosclerosis of coronary artery of [place] heart without angina pectoris ( Chronic) I25.10 CABG x 4 RODRIGUEZ-LAD, SVG-OM1, SVG-OM2, SVG-PDA 10/03/17 @ [facility] PCI-BMS-Mid and Prox RCA w/ 2.25 x 18 mm, 2.25 x 14 mm, 2.25 x 12 mm Integrity and 2.5 x 16 mm Rebel 06/17/2017 Myocardial infarction, inferior wall (Chronic) I21.19 Near syncope (Acute) R55 Atrial fibrillation with RVR (Resolved) I48.91 Type 2 diabetes mellitus without complications (Chronic) E11.9 Hyperlipidemia (Chronic) E78.5 Hypertension (Chronic) I10 Iron deficiency anemia D50.9 Anemia (Resolved) D64.9 - Past Surgical History Surgical History: Past Surgical History (Last Updated 11/03/17 @ 12:25 by Kamala Mixon) H/O coronary artery bypass surgery (Acute) Onset Date: 10/03/17 Z95.1 CABG x 4 RODRIGUEZ-LAD, SVG-OM1, SVG-OM2, SVG-PDA 10/03/17 @ [facility] H/O right coronary artery stent placement (Chronic) Onset Date: ~06/17/17 Z95.5 PCI-BMS-Mid and Prox RCA w/ 2.25 x 18 mm, 2.25 x 14 mm, 2.25 x 12 mm Integrity and 2.5 x 16 mm Rebel 06/17/2017 History of carpal tunnel release Z98.890 History of cataract surgery Z98.49 History of left heart catheterization Onset Date: 09/25/17 Z98.890 Surgical History: cataract, coronary bypass surgery, - - Family History Summary Family History: Family History (Last Reviewed 11/03/17 @ 12:12 by Donald Law MD) Mother Breast cancer Social History - Smoking History Smoking Status: Former smoker Years Smokin Packs Smoked per Day: 0.5 Hx Tobacco Use: Yes Hx Smoking Exposure: Yes - Alcohol Use Alcohol Usage: No - Substance Abuse Hx Substance Use: No - Occupation Occupation (List type of work in comments):: Retired - Hobbies, Recreation, Social Activities Hobbies: Other - cards, shopping Recreational Activities: I am able to engage in all my recreational activities Social Environment - Status Marital Status: - Current Living Arrangements Living Environment:: Spouse - Children Do any of your children live nearby?: Yes - Safety Do you feel safe in your surroundings?: Yes - Assistance Do you need any assistance at home?: none Review of Systems - Review of Systems Hints: Right click = Denies ([place]ash). Left click = Reports ([place]) Review of Present Symptoms: Reports: Shortness of Breath at Rest, Fatigue, Appetite - Normal, Appetite - Special Diet, Sleep - Normal. Denies: Shortness of Breath with Exertion, PVD, Operative Discomfort, Angina, Wound Healing, Dizziness/Lightheadedness, Heart Arrhythmia/Irregularities, Sexual Changes - Pain Is Patient Pain Free?: Yes Risk Factor Assessment - Chief Complaint Chief Complaint: Z95.1 CABG - Vital Signs Pulse Ox: 97 - Pulse Pulse Rate: 73 Pulse Rhythm: Regular - Hypertension Blood Pressure Sitting - Right Arm: 142/74 - Diabetes Diabetic History: Type II Nutrition Referral for Diabetes: No - Obesity Height: 1.55 m Weight:: 62.142 kg Weight in Pounds: 137.0 lbs Weight Source: Standing Scale Body Mass Index (BMI): 25.9 Nutritional Referral for Obesity: No - Physical Inactivity Physical Inactivity: Reg Exercise 30 min/day - Risk Stratification Risk Guidelines: Moderate Risk: Risk Factor for Smoking, Risk Factor for Obesity , Risk Factor for Sedentary Lifestyle, Risk Factor for Depression, Highest Risk : Risk Factor for Dyslipidemia, Risk Factor for Diabetes, Risk Factor for Hypertension - For Smoking Smoking Risk Guidelines: Smoking Low Risk: None or quit greater than 6 months ago. Smoking Moderate Risk: Smoker or quit 6 months or less ago. Smoking High Risk: Smoker - For Dyslipidemia Dyslipidemia Risk Guidelines: Low Risk: Moderate Risk: High Risk: 15-25% fat 25.1-29% fat >/= 30% fat. <7% sat fat 7-9% sat fat >9% sat fat. <150 mg chol 150-299 mg chol >/= 300 mg chol. LDL <100 LDL 100-129 LDL >/= 130. Chol/HDL ratio <5.0 Chol/HDL ratio 5.0-6.0 Chol/HDL ratio >6.0. Triglycerides <100 Triglycerides 100-149 Triglycerides >/= 150 - For Diabetes Mellitus Diabetes Risk Guidelines: Diabetes Low Risk: HgA1c <6.5% and/or FBG <120. Diabetes Moderate Risk: HgA1c 6.6-7.9% and/or FBG 120-180. Diabetes High Risk: HgA1c >/= 8% and/or FBG >180 - For Obesity/Overweight Obesity/Overweight Risk Guidelines: Obesity Low Risk: BMI <25.0. Obesity Moderate Risk: BMI 25-29.9. Obesity High Risk: BMI >/= 30.0 - For Hypertension Hypertension Risk Guidelines: Hypertension Low Risk: Systolic <120 and Diastolic <80. Hypertension Moderate Risk: Systolic 120-139 and Diastolic 80-89. Hypertension High Risk: Systolic >/= 140 and Diastolic >/= 90 - For Sedentary Lifestyle Sedentary Lifestyle Risk Guidelines: Sedentary Lifestyle Low Risk: >/= 1 ,500 kcal/week. Sedentary Lifestyle Moderate Risk: 700-1,499 kcal/week. Sedentary Lifestyle High Risk: < 700 kcal/week - For Depression Depression Risk Guidelines: Depression Low Risk: Not clinically depressed. Depression Moderate Risk: Mildly depressed. Depression High Risk: Clinically depressed - Family History Family History: Family History (Last Reviewed 11/03/17 @ 12:12 by Donald Law MD) Mother Breast cancer Motivation - Motivation to Participate On a scale of 1 to 10, how prepared are you to commit to attending program?: 8 What do you see as barriers to successfully being able to complete the program? : none What do you see as the benefits of succesfully completing the program? In other words, what do you hope to get out of participating in the program?: strength, driving Are there issues you are dealing with that will interfere with completing the program?: nnoe Do you have a spouse or signficant other, family or friends who will help support you to complete the program?: yes
--- NOTE | 2017-12-01 13:01 | CR.ITP_ITS ---
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 Maintain the individual as the primary focus of care. 2. To improve the patient's quality of life. 3. Identification of cardiac risk factors and provide cardiac risk factor management. 4. Enhance the psychosocial status of the patient. 5. Reconditioning enough to allow the patient to resume customary activities. 6. Control symptoms of cardiac disease Scale for measuring improvement of personal goals: Enter appropriate number in Comments. 2 = Unchanged. 3 = Slightly Better. 4 = Moderate Improvement. 5 = Met my Goal Personal Goals: Initial Assessment: Improve energy level, Improve knowledge of cardiac disease, Improve muscle strength and endurance, Control risk factors ( learn risk factor modification) Exercise - Initial Assessment - Visit Date of Eval: 12/01/17 - initial eval - Stages of Change Stages of Change:: Contemplate - Exercise Prescription Mode:: Treadmill, Biodyne, Airdyne, NuStep, Arm Ergometer Angina with exercise?: Yes Target Heart Rate:: 98-105 - Hypertension Do any of the following apply?: Yes Resting Blood Pressure:: 142/74 - Intervention Home Exercise/Activity Goal:: Sitting Time <3 hrs/day - Education Goals:: Warm-up, RPE AZAEL Scale, S/S, Safe Exercise, Self-Monitoring - Exercise Program Goals Exercise Program Goals: Aerobic Activity >30 min, B/P <130/80 Nutrition - Initial Assessment - Program Goals Nutrition Program Goals: LDL <70. Total Cholesterol <200. HDL >45. Triglycerides <150. HgbA1C <7%. BMI <25 - Visit Date of Assessment:: 12/01/17 - Stages of Change Stages of Change:: Contemplate - Diabetes Diabetes:: Yes Do you monitor your blood sugar at home?: Yes - Weight Management Height: 1.55 m Weight:: 62.142 kg Total Score:: 1 - Intervention Referral to dietitian:: No Referral to Diabetic Clinic:: No Will attend diet classes:: Yes - Education Gave educational materials for:: Signs & symptoms of hypoglycemia, Signs & symptoms of hyperglycemia, Relate diabetes to coronary artery disease, Healthy eating Tobacco - Initial Assessment - Program Goals Tobacco Program Goals: Complete smoking cessation. Attend education classes. Improve Knowledge Test score - Stage of Change Stages of Change:: Contemplate - Learning Barriers Learning Barriers: Ready to Learn Total Score:: 16 - Family Support Do you have family support?: Yes - Tobacco Use Tobacco Use: Non-smoker Do you use smokeless tobacco?: No - Intervention Smoking Cessation Referral:: No Individual Education/Counseling:: No Education Schedule Given:: Yes - Education Gave educational material for:: Tobacco triggers, Coronary artery disease, Risk factors, Sexuality, Medical compliance, Cardiac A&P, Angina signs & symptoms Psychosocial - Initial Assess - Target Goals Target Goals: Assess presence or absence of depression. Using a valid screening tool, maximizes coping skills. Positive support system - Stages of Change Stages of Change:: Contemplate - Psychosocial Test Tool Used:: HANDS Depression Questionnaire Total Mood Screening Score:: 3 Self-Efficacy Score:: 6 - Intervention PS - Interventions: Yes Attend Stress Management Classes, Yes Uses Stress Management Skills, No Referral to Mental Health, No Referral to [facility] Case Management, No Referral to Physician - Education Gave educational materials for:: Coping techniques, Signs & symptoms of depression, Stress management, Relaxation techniques - Assistive Devices Assistive Devices:: None Fall Risk Assessed:: Yes Patient Health Questionnaire Initial Assessment 1. Little interest or pleasure in doing things: Not at all 2. Feeling down, depressed, or hopeless: Not at all 3. Trouble falling or staying asleep, or sleeping too much: Not at all 4. Feeling tired or having little energy: Several days 5. Poor appetite or overeating: Several days 6. Feeling bad about yourself -- or that you are a failure or have let yourself or your family down: Several days 7. Trouble concentrating on things, such as reading the newspaper or watching television: Not at all 8. Moving or speaking so slowly that other people could have noticed. Or the opposite - being so fidgety or restless that you have been moving around a lot more than usual: Not at all 9. Thoughts that you would be better off , or of hurting yourself in some way: Not at all How difficult have these problems made it for you to do your work, take care of things at home, or get along with other people?: Not difficult at all Total Score: 3 ARMIN-Q SV Test - Statements CAD is a disease of the arteries in the heart: True Examples of risk factors for heart disease: True Angina is chest pain or discomfort: True The benefits of resistance training include: True Eating more meat and dairy products: False Anti-platelet medications such as aspirin are important: True The only effective way to manage stress: False An exercise warm-up slowly increases heart rate: True Prepared, processed foods usually have high sodium: True Depression is common after a heart attack: True The statin medications lower cholesterol: False To control blood pressure, lower the amount of sodium: True If someone gets chest discomfort during walking: False Transfats are partially hydrogenated vegetable oils: True Sleep apnea that is not treated increases the risk: True To control cholesterol, one should become a vegetarian: False Someone knows if he/she is exercising at the right level: False Diabetes cannot be prevented with exercise & health eating: False Stress is a large risk for heart attack: True A diet that can help lower blood pressure is rich in: True - Total Score Total Correct Responses: 16 Self-Efficacy Initial Assessment We would like to know how confident you are in doing certain activities. Please select your confidence level for:: Select your confidence level for the following using the scale 1-10 where 1 is not at all confident and 10 is totally confident. Your score is the average of all 6 responses. Fatigue: How confident are you that you can keep the fatigue caused by your disease from interfering with the things you want to do? Select Number: 4 Physical Discomfort or Pain: How confident are you that you can keep the physical discomfort or pain of your disease from interfering with the things you want to do? Select Number: 6 Emotional Distress: How confident are you that you can keep the emotional distress caused by your disease from interfering with the things you want to do? Select Number: 7 Other Symptoms or Health Problems: How confident are you that you can keep other symptoms or health problems from interfering with the things you want to do? Select Number: 7 Different Tasks and Activities: How confident are you that you can do the different tasks and activities needed to manage your health condition so as to reduce your need to see a doctor? Select Number: 5 Medication: How confident are you that you can do things other than just taking medication to reduce how much your illness affects your everyday life? Select Number: 8 Total Score:: 6 Nutrition Survey - Nutrition Survey Instructions Scoring Instructions: Scoring is as follows: Yes = 1 points. No = 0 point. Patient score that is >/=12 is considered to be at potential nutritional risk and could benefit from a referral to a registered dietitian. - Nutrition Survey Initial Have you lost >10 lbs over the past 2 months without trying?: No Are you following a special diet at home for diabetes, low fat, or low salt?: Yes Are you interested in meeting with a dietitian for help understanding your diet? : No Do you eat less than 3 meals a day?: No Do you eat fatty meats (ponce, sausage, ribs, etc), fried foods, desserts, large amounts of salad dressings, margarine, butter, or cheese most days?: No Do you have food allergies? [Enter types in comment field]: No Do you eat in restaurants more than 3 times a week?: No Do you season food with salt, seasoning salt, or garlic salt?: No Do you used canned, boxed, frozen meals, or soups, seasoning packets?: No Total Score:: 1
[2017-12-01 13:53] VITALS: BP 142/74; PULSE 73; O2SAT 97; BMI 25.9
[2017-12-01 13:55] VITALS: BP 142/74
== END ==
PROVIDERS: Family Provider Nurse Practitioner; PCP Nurse Practitioner; Visit Provider Internal Medicine Cardiovascular Disease
DX: I25.10 Atherosclerotic heart disease of native coronary artery without angina pectoris (principal); I48.91 Unspecified atrial fibrillation; E11.9 Type 2 diabetes mellitus without complications; E78.5 Hyperlipidemia, unspecified; I25.2 Old myocardial infarction; Z95.1 Presence of aortocoronary bypass graft

== ENCOUNTER 2017-12-15 10:15 | Outpatient (RCR) | payer MEDICARE, SELFPAY ==
[2017-06-19 08:53] VITALS: BMI 28.1
== END 2017-12-17 23:59 ==
LOC: CR 10:15
PROVIDERS: Family Provider Nurse Practitioner; PCP Nurse Practitioner; Visit Provider Internal Medicine Cardiovascular Disease
DX: I25.10 Atherosclerotic heart disease of native coronary artery without angina pectoris (principal); I21.19 ST elevation (STEMI) myocardial infarction involving other coronary artery of inferior wall; I48.91 Unspecified atrial fibrillation; E11.9 Type 2 diabetes mellitus without complications; E78.5 Hyperlipidemia, unspecified; Z95.1 Presence of aortocoronary bypass graft
CPT/HCPCS: 93798

== ENCOUNTER 2018-01-15 10:15 | Outpatient (RCR) | payer MEDICARE, SELFPAY ==
[2017-06-19 08:53] VITALS: BMI 28.1
[2017-12-29 08:36] VITALS: BP 120/56; BP 136/60
--- NOTE | 2017-12-29 08:36 | CR.ITP_ITS ---
Exercise - 30-day Assessment - Visit Date of Eval: 12/29/17 Session #:: 10 - Stages of Change Stages of Change:: Action - Exercise Prescription Mode:: NuStep Frequency (x/week): 3 Duration:: 30 METs - Progression: 0.5-1 MET as tolerated: 4 Target Heart Rate:: 98-105 - Hypertension Resting Blood Pressure:: 120/56 Peak Exercise Blood Pressure:: 136/60 Medication Changes:: No - Intervention Home Exercise/Activity Goal:: Moderate Exercise 30 min/day x 5 days/wk - Education Goals:: Warm-up, RPE AZAEL Scale, S/S, Safe Exercise, Self-Monitoring - Exercise Program Goals Exercise Program Goals: Aerobic Activity >30 min Nutrition - Initial Assessment - Program Goals Nutrition Program Goals: LDL <70. Total Cholesterol <200. HDL >45. Triglycerides <150. HgbA1C <7%. BMI <25 - Diabetes Do you monitor your blood sugar at home?: Yes Nutrition - 30-Day Assessment - Program Goals Nutrition Program Goals: LDL <70. Total Cholesterol <200. HDL >45. Triglycerides <150. HgbA1C <7%. BMI <25 - Visit Date of Eval: 12/29/17 - Stages of Change Stages of Change:: Action - Lipids Has the patient seen the dietitian?: No - Diabetes Diabetes:: No - Intervention Referral to dietitian:: No Will attend diet classes:: Yes - Education Attended class for:: Healthy eating Tobacco - Initial Assessment - Program Goals Tobacco Program Goals: Complete smoking cessation. Attend education classes. Improve Knowledge Test score - Learning Barriers Learning Barriers: Ready to Learn Tobacco - 30-Day Assessment - Program Goals Tobacco Program Goals: Complete smoking cessation. Attend education classes. Improve Knowledge Test score - Stage of Change Stages of Change:: Action - Learning Barriers Learning Barriers: Participates in education - Family Support Do you have family support?: Yes - Tobacco Use Tobacco Use: Non-smoker Do you use smokeless tobacco?: No - Intervention Smoking Cessation Referral:: No Education Schedule Given:: Yes - Education Attended class for:: Coronary artery disease, Risk factors, Sexuality, Medical compliance, Cardiac A&P, Angina signs & symptoms Psychosocial - Initial Assess - Target Goals Target Goals: Assess presence or absence of depression. Using a valid screening tool, maximizes coping skills. Positive support system - Psychosocial Test Tool Used:: HANDS Depression Questionnaire - Assistive Devices Fall Risk Assessed:: Yes Psychosocial - 30-Day Assess - Target Goals Target Goals: Assess presence or absence of depression. Using a valid screening tool, maximizes coping skills. Positive support system - Stages of Change Stages of Change:: Action - Psychosocial Test Tool Used:: HANDS Depression Questionnaire - Intervention PS - Interventions: Yes Attend Stress Management Classes, Yes Uses Stress Management Skills, No Referral to Mental Health, No Referral to [facility] Case Management, No Referral to Physician - Education Attended classes for:: Coping techniques, Signs & symptoms of depression, Stress management, Relaxation techniques - Patient/Program Goal Preventative Medication(s):: Aspirin, Clopidogrel, Beta kartik, Statin/lipid - Assistive Devices Assistive Devices:: None Fall Risk Assessed:: Yes Patient Health Questionnaire 30-Day Re-eval Assessment 1. Little interest or pleasure in doing things: Not at all 2. Feeling down, depressed, or hopeless: Not at all 3. Trouble falling or staying asleep, or sleeping too much: Not at all 4. Feeling tired or having little energy: Not at all 5. Poor appetite or overeating: Not at all 6. Feeling bad about yourself -- or that you are a failure or have let yourself or your family down: Not at all 7. Trouble concentrating on things, such as reading the newspaper or watching television: Not at all 8. Moving or speaking so slowly that other people could have noticed. Or the opposite - being so fidgety or restless that you have been moving around a lot more than usual: Not at all 9. Thoughts that you would be better off , or of hurting yourself in some way: Not at all How difficult have these problems made it for you to do your work, take care of things at home, or get along with other people?: Not difficult at all Total Score: 0 Self-Efficacy 30-Day Re-eval Assessment We would like to know how confident you are in doing certain activities. Please select your confidence level for:: Select your confidence level for the following using the scale 1-10 where 1 is not at all confident and 10 is totally confident. Your score is the average of all 6 responses. Fatigue: How confident are you that you can keep the fatigue caused by your disease from interfering with the things you want to do? Select Number: 6 Physical Discomfort or Pain: How confident are you that you can keep the physical discomfort or pain of your disease from interfering with the things you want to do? Select Number: 7 Emotional Distress: How confident are you that you can keep the emotional distress caused by your disease from interfering with the things you want to do? Select Number: 8 Other Symptoms or Health Problems: How confident are you that you can keep other symptoms or health problems from interfering with the things you want to do? Select Number: 8 Different Tasks and Activities: How confident are you that you can do the different tasks and activities needed to manage your health condition so as to reduce your need to see a doctor? Select Number: 6 Medication: How confident are you that you can do things other than just taking medication to reduce how much your illness affects your everyday life? Select Number: 9 Total Score:: 7
== END 2018-01-17 23:59 ==
LOC: CR 10:15
PROVIDERS: Family Provider Nurse Practitioner; PCP Nurse Practitioner; Referring Provider Internal Medicine Cardiovascular Disease; Visit Provider Internal Medicine Cardiovascular Disease
DX: I25.10 Atherosclerotic heart disease of native coronary artery without angina pectoris (principal); I21.19 ST elevation (STEMI) myocardial infarction involving other coronary artery of inferior wall; I48.91 Unspecified atrial fibrillation; E11.9 Type 2 diabetes mellitus without complications; E78.5 Hyperlipidemia, unspecified; Z95.1 Presence of aortocoronary bypass graft
CPT/HCPCS: 93798

== ENCOUNTER 2018-02-16 10:15 | Outpatient (RCR) | payer MEDICARE, SELFPAY ==
[2017-06-19 08:53] VITALS: BMI 28.1
[2018-01-18 01:39] VITALS: BP 120/56; BP 136/60
[2018-01-26 10:04] VITALS: BP 104/70; BP 138/70
--- NOTE | 2018-01-26 10:05 | CR.ITP_ITS ---
Exercise - 60-Day Assessment - Visit Date of Eval: 01/26/18 Session #:: 22 - Stages of Change Stages of Change:: Action - Exercise Prescription Mode:: Biodyne, NuStep Frequency (x/week): 3 Duration:: 35 METs: 4.5 Target Heart Rate:: 98-105 mx HR 68 - Hypertension Resting Blood Pressure:: 104/70 Peak Exercise Blood Pressure:: 138/70 Medication Changes:: No - Intervention Home Exercise/Activity Goal:: Sitting Time <3 hrs/day - Education Goals:: Warm-up, RPE AZAEL Scale, S/S, Safe Exercise, Self-Monitoring - Exercise Program Goals Exercise Program Goals: Aerobic Activity >30 min Nutrition - Initial Assessment - Program Goals Nutrition Program Goals: LDL <70. Total Cholesterol <200. HDL >45. Triglycerides <150. HgbA1C <7%. BMI <25 - Diabetes Do you monitor your blood sugar at home?: Yes Nutrition - 60-Day Assessment - Program Goals Nutrition Program Goals: LDL <70. Total Cholesterol <200. HDL >45. Triglycerides <150. HgbA1C <7%. BMI <25 - Visit Date of Eval: 01/26/18 - Stages of Change Stages of Change:: Action - Lipids Has the patient seen the dietitian?: No - Weight Management Weight:: 145 lb 8 oz - Intervention Referral to dietitian:: No Referral to Diabetic Clinic:: No Will attend diet classes:: No - Education Attended class for:: Healthy eating Tobacco - Initial Assessment - Program Goals Tobacco Program Goals: Complete smoking cessation. Attend education classes. Improve Knowledge Test score - Learning Barriers Learning Barriers: Ready to Learn Tobacco - 60-Day Assessment - Program Goals Tobacco Program Goals: Complete smoking cessation. Attend education classes. Improve Knowledge Test score - Stage of Change Stages of Change:: Action - Learning Barriers Learning Barriers: Participates in education - Intervention Education Schedule Given:: Yes - Education Attended class for:: Coronary artery disease, Risk factors, Sexuality, Medical compliance, Cardiac A&P, Angina signs & symptoms Psychosocial - Initial Assess - Target Goals Target Goals: Assess presence or absence of depression. Using a valid screening tool, maximizes coping skills. Positive support system - Psychosocial Test Tool Used:: HANDS Depression Questionnaire - Assistive Devices Fall Risk Assessed:: Yes Psychosocial - 60-Day Assess - Target Goals Target Goals: Assess presence or absence of depression. Using a valid screening tool, maximizes coping skills. Positive support system - Stages of Change Stages of Change:: Action - Psychosocial Test Tool Used:: HANDS Depression Questionnaire - Intervention PS - Interventions: Yes Attend Stress Management Classes, Yes Uses Stress Manage ment Skills, No Referral to Mental Health, No Referral to [facility] [place] Case Management, No Referral to Physician - Education Attended classes for:: Coping techniques, Signs & symptoms of depression, Stress management, Relaxation techniques - Patient/Program Goal Preventative Medication(s):: Aspirin, Clopidogrel, Beta kartik, Statin/lipid - Assistive Devices Assistive Devices:: None Fall Risk Assessed:: Yes Patient Health Questionnaire 60-Day Re-eval Assessment 1. Little interest or pleasure in doing things: Several days 2. Feeling down, depressed, or hopeless: Not at all 3. Trouble falling or staying asleep, or sleeping too much: Several days 4. Feeling tired or having little energy: Not at all 5. Poor appetite or overeating: Not at all 6. Feeling bad about yourself -- or that you are a failure or have let yourself or your family down: Not at all 7. Trouble concentrating on things, such as reading the newspaper or watching television: Not at all 8. Moving or speaking so slowly that other people could have noticed. Or the opposite - being so fidgety or restless that you have been moving around a lot more than usual: Not at all 9. Thoughts that you would be better off , or of hurting yourself in some way: Not at all Total Score: 2 Self-Efficacy 60-Day Re-eval Assessment We would like to know how confident you are in doing certain activities. Please select your confidence level for:: Select your confidence level for the following using the scale 1-10 where 1 is not at all confident and 10 is totally confident. Your score is the average of all 6 responses. Fatigue: How confident are you that you can keep the fatigue caused by your disease from interfering with the things you want to do? Select Number: 7 Physical Discomfort or Pain: How confident are you that you can keep the physical discomfort or pain of your disease from interfering with the things you want to do? Select Number: 8 Emotional Distress: How confident are you that you can keep the emotional distress caused by your disease from interfering with the things you want to do? Select Number: 9 Other Symptoms or Health Problems: How confident are you that you can keep other symptoms or health problems from interfering with the things you want to do? Select Number: 9 Different Tasks and Activities: How confident are you that you can do the different tasks and activities needed to manage your health condition so as to reduce your need to see a doctor? Select Number: 7 Medication: How confident are you that you can do things other than just taking medication to reduce how much your illness affects your everyday life? Select Number: 8 Total Score:: 8
== END 2018-02-16 23:59 ==
LOC: CR 10:15
PROVIDERS: Family Provider Nurse Practitioner; PCP Nurse Practitioner; Referring Provider Internal Medicine Cardiovascular Disease; Visit Provider Internal Medicine Cardiovascular Disease
DX: I25.10 Atherosclerotic heart disease of native coronary artery without angina pectoris (principal); I21.19 ST elevation (STEMI) myocardial infarction involving other coronary artery of inferior wall; I48.91 Unspecified atrial fibrillation; E11.9 Type 2 diabetes mellitus without complications; E78.5 Hyperlipidemia, unspecified; Z95.1 Presence of aortocoronary bypass graft
CPT/HCPCS: 93798

== ENCOUNTER 2018-03-02 10:15 | Outpatient (RCR) | payer MEDICARE, SELFPAY ==
[2017-06-19 08:53] VITALS: BMI 28.1
[2018-02-02 09:50] VITALS: BMI 27.3
[2018-02-17 01:20] VITALS: BP 104/70; BP 138/70
--- NOTE | 2018-02-26 08:46 | PCM.CR.ITP ---
General Information - General Information Admitting Diagnosis: CABG - Education/Goals Barriers to Learning: None Cardiac Rehabilitation Goals: 1. Maintain the individual as the primary focus of care. 2. To improve the patient's quality of life. 3. Identification of cardiac risk factors and provide cardiac risk factor management. 4. Enhance the psychosocial status of the patient. 5. Reconditioning enough to allow the patient to resume customary activities. 6. Control symptoms of cardiac disease Scale for measuring improvement of personal goals: Enter appropriate number in Comments. 2 = Unchanged. 3 = Slightly Better. 4 = Moderate Improvement. 5 = Met my Goal Exercise - 90-Day Assessment - Visit Date of Eval: 02/26/18 - ITP delayed due to tecnical issues Session #:: 33 - Stages of Change Stages of Change:: Action - Exercise Prescription Mode:: Biodyne, NuStep Frequency (x/week): 3 Duration:: 35 METs: 4.5 Target Heart Rate:: 98-105 Max HR 78 - Hypertension Resting Blood Pressure:: 116/60 Peak Exercise Blood Pressure:: 150/58 - Intervention Home Exercise/Activity Goal:: Sitting Time <3 hrs/day - Education Goals:: RPE AZAEL Scale, S/S, Safe Exercise, Self-Monitoring - Exercise Program Goals Exercise Program Goals: Aerobic Activity >30 min Nutrition - Initial Assessment - Program Goals Nutrition Program Goals: LDL <70. Total Cholesterol <200. HDL >45. Triglycerides <150. HgbA1C <7%. BMI <25 - Diabetes Do you monitor your blood sugar at home?: Yes Nutrition - 90-Day Assessment - Program Goals Nutrition Program Goals: LDL <70. Total Cholesterol <200. HDL >45. Triglycerides <150. HgbA1C <7%. BMI <25 - Visit Date of Eval: 02/26/18 - Stages of Change Stages of Change:: Action - Weight Management Weight:: 65.317 kg - Intervention Referral to dietitian:: No Referral to Diabetic Clinic:: No Will attend diet classes:: Yes - Education Attended class for:: Signs & symptoms of hypoglycemia, Signs & symptoms of hyperglycemia, Relate diabetes to coronary artery disease, Healthy eating Tobacco - Initial Assessment - Program Goals Tobacco Program Goals: Complete smoking cessation. Attend education classes. Improve Knowledge Test score - Learning Barriers Learning Barriers: Ready to Learn Tobacco - 90-Day Assessment - Program Goals Tobacco Program Goals: Complete smoking cessation. Attend education classes. Improve Knowledge Test score - Stage of Change Stages of Change:: Action - Learning Barriers Learning Barriers: Participates in education - Family Support Do you have family support?: Yes - Tobacco Use Tobacco Use: Non-smoker - Intervention Smoking Cessation Referral:: No Individual Education/Counseling:: No Education Schedule Given:: Yes - Education Attended class for:: Tobacco triggers, Coronary artery disease, Risk factors, Sexuality, Medical compliance, Cardiac A&P, Angina signs & symptoms Psychosocial - 90-Day Assess - Target Goals Target Goals: Assess presence or absence of depression. Using a valid screening tool, maximizes coping skills. Positive support system - Stages of Change Stages of Change:: Action - Psychosocial Test Tool Used:: HANDS Depression Questionnaire - Intervention PS - Interventions: Yes Attend Stress Management Classes, Yes Uses Stress Management Skills, No Referral to Mental Health, No Referral to [facility] Case Management, No Referral to Physician - Education Attended classes for:: Coping techniques, Signs & symptoms of depression, Stress management, Relaxation techniques - Assistive Devices Assistive Devices:: None Fall Risk Assessed:: Yes Patient Health Questionnaire 90-Day Re-eval Assessment 1. Little interest or pleasure in doing things: Several days 2. Feeling down, depressed, or hopeless: Not at all 3. Trouble falling or staying asleep, or sleeping too much: Several days 4. Feeling tired or having little energy: Not at all 5. Poor appetite or overeating: Not at all 6. Feeling bad about yourself -- or that you are a failure or have let yourself or your family down: Not at all 7. Trouble concentrating on things, such as reading the newspaper or watching television: Not at all 8. Moving or speaking so slowly that other people could have noticed. Or the opposite - being so fidgety or restless that you have been moving around a lot more than usual: Not at all 9. Thoughts that you would be better off , or of hurting yourself in some way: Not at all How difficult have these problems made it for you to do your work, take care of things at home, or get along with other people?: Not difficult at all Total Score: 2 Self-Efficacy 90-Day Re-eval Assessment We would like to know how confident you are in doing certain activities. Please select your confidence level for:: Select your confidence level for the following using the scale 1-10 where 1 is not at all confident and 10 is totally confident. Your score is the average of all 6 responses. Fatigue: How confident are you that you can keep the fatigue caused by your disease from interfering with the things you want to do? Select Number: 7 Physical Discomfort or Pain: How confident are you that you can keep the physical discomfort or pain of your disease from interfering with the things you want to do? Select Number: 8 Emotional Distress: How confident are you that you can keep the emotional distress caused by your disease from interfering with the things you want to do? Select Number: 9 Other Symptoms or Health Problems: How confident are you that you can keep other symptoms or health problems from interfering with the things you want to do? Select Number: 9 Different Tasks and Activities: How confident are you that you can do the different tasks and activities needed to manage your health condition so as to reduce your need to see a doctor? Select Number: 7 Medication: How confident are you that you can do things other than just taking medication to reduce how much your illness affects your everyday life? Select Number: 8 Total Score:: 8
[2018-02-26 08:52] VITALS: BP 116/60; BP 150/58
== END 2018-03-19 23:59 ==
LOC: CR 10:15
PROVIDERS: Family Provider Nurse Practitioner; PCP Nurse Practitioner; Referring Provider Internal Medicine Cardiovascular Disease; Visit Provider Internal Medicine Cardiovascular Disease
DX: I25.10 Atherosclerotic heart disease of native coronary artery without angina pectoris (principal); I21.19 ST elevation (STEMI) myocardial infarction involving other coronary artery of inferior wall; I48.91 Unspecified atrial fibrillation; E11.9 Type 2 diabetes mellitus without complications; E78.5 Hyperlipidemia, unspecified; Z95.1 Presence of aortocoronary bypass graft
CPT/HCPCS: 93798

== ENCOUNTER → 2018-08-30 12:09 | Outpatient (CLI) | payer MEDICARE, SELFPAY ==
[2017-06-19 08:53] VITALS: BMI 28.1
[2018-08-03 09:24] VITALS: BMI 28.5
--- NOTE | 2018-08-30 12:12 | BI_ITS ---
MAMMOGRAPHY - BILATERAL SCREENING REASON FOR EXAM: Female, 83 years old. Routine annual screening examination. PERTINENT HISTORY: Daughter with breast cancer. Mother with breast cancer. TECHNIQUE: Digital bilateral breast rose (3D mammographic acquisition) in the CC and MLO projections. 2-D mediolateral oblique (MLO) and craniocaudad (CC) views of both breasts were obtained. CAD: Full Field Digital Mammography with Computer Added Detection was performed. COMPARISON: Comparison is made with prior study of August 17, 2017 and June 27, 2016. FINDINGS: Breast Composition: The breasts are heterogeneously dense, which may obscure small masses. There are no dominant masses or suspicious calcifications. Stable benign-appearing bilateral secretory calcifications as well as small bilateral axillary lymph nodes. No other significant abnormalities are identified. There has been no significant change since the prior study. BI/SCREEN MAMM (CAD) W/ROSE BILAT IMPRESSION: Stable bilateral screening mammogram. Yearly follow-up mammogram recommended. (A) ASSESSMENT CATEGORY: BIRADS Category 2: Benign. A letter regarding these results will be sent to the patient by the facility within 30 days. Approximately 10% of breast cancers are not detected by mammography. A normal mammogram should not delay biopsy of a clinically suspicious abnormality. [id number] Electronically Signed: Bogdan Muñiz, at 14:38 EDT , Service support ,
== END ==
PROVIDERS: Family Provider Nurse Practitioner; PCP Nurse Practitioner; Referring Provider Nurse Practitioner; Visit Provider Nurse Practitioner
DX: Z12.31 Encounter for screening mammogram for malignant neoplasm of breast (principal)
CPT/HCPCS: 77063; 77067

== ENCOUNTER 2018-11-21 08:51 | Outpatient (RCR) | payer MEDICARE, SELFPAY ==
[2017-06-19 08:53] VITALS: BMI 28.1
[2018-08-03 09:24] VITALS: BMI 28.5
--- NOTE | 2019-05-23 16:07 | HP.PT.NRP ---
HP - Discharge Summary (1) - Patient Information GIOVANY BRANHAM was seen in my office for initial evaluation on . The following Plan of Care was established for this patient: This patient was last seen in our office . Pertinent comments regarding their Physical therapy will appear below: Patient has not attended PT in 6 months- appropriate to d/c At this point I will be discontinuing this patient from physical therapy. I would be happy to see this patient again in the future if found appropriate by the physician. Thank you! BOOM GoldenT
== END 2018-11-21 19:00 | disposition home or self-care (01) ==
LOC: PT 08:51
PROVIDERS: Family Provider Nurse Practitioner; PCP Nurse Practitioner; Referring Provider Nurse Practitioner; Visit Provider Nurse Practitioner
DX: R53.81 Other malaise (principal)

== ENCOUNTER → 2019-01-28 08:22 | Outpatient (CLI) | payer MEDICARE, SELFPAY ==
[2017-06-19 08:53] VITALS: BMI 28.1
[2018-08-03 09:24] VITALS: BMI 28.5
[2019-01-28 09:55] LABS: Absolute Lymphocyte Count 1.72 X10^3/uL (0.83-4.51); Absolute Neutrophil Count 6.3 X10^3/uL (2.0-7.7); Basophil# 0.05 X10^3/uL; Basophil% 0.6 % (0-1); Eosinophil# 0.19 X10^3/uL; Eosinophils% 2.1 % (0-5); Hematocrit 40.8 % (37-47); Hemoglobin 13.1 g/dL (12.0-15.0); Lymphocyte # 1.72 X10^3/ul (4.0); Lymphocyte % 19.1 % (19-41); Mean Corp Hgb Conc 32.1 g/dL (32-36); Mean Corpuscular Hgb 31.2 pg (27.0-32.0); Mean Corpuscular Volume 97.1 fL (81-99); Mean Platelet Vol. 10.8 fl (6.2-12.0); Monocyte# 0.67 X10^3/uL; Monocyte% 7.5 % (0-10); NRBC Flagged by Analyzer 0 % (0-5); Neutrophil # 6.34 X10^3/uL (2.7-7.7); Neutrophil % 70.5 % (47-70); Platelet Count 227 K/mm3 (150-450); RBC Distribution Width CV 13.6 % (11.6-14.6); RBC Distribution Width SD 48.2 fl (35.1-43.9)
[2019-01-28 10:30] LABS: ALB/GLOB Ratio 0.9 RATIO (0.9-2.4); AST(SGOT) 19 U/L (15-37); Alanine Aminotransfer ALT/SGPT 24 U/L (13-56); Albumin, Serum 3.5 g/dL (3.2-5.0); Alkaline Phosphatase 102 U/L (45-117); Anion Gap 5 (5-15); BUN 15 mg/dL (7-18); BUN/Creat Ratio 14.6 RATIO (10-20); Chloride 106 mmol/L (98-107); Cholesterol 114 mg/dL (200); Creatinine, Serum 1.03 mg/dL (0.55-1.02); EST Glomerular Filtration Rate 55 mL/min (>60); Est Glom Filt Rate - Afr Amer 66 mL/min (>60); Globulin 3.9 g/dL (2.2-4.2); Glucose 124 mg/dL (74-106); High Density Lipoprotein 35 mg/dL; Potassium 4.2 mmol/L (3.5-5.1); Protein, Total 7.4 g/dL (6.4-8.2); Sodium Level 137 mmol/L (136-145); Thyroid Stim Hormone (TSH) 2.49 uIU/mL (0.358-3.74); Triglycerides 114 mg/dL; Very Low Density Lipoprotein 23 mg/dL (5-40)
== END ==
PROVIDERS: Family Provider Nurse Practitioner; PCP Nurse Practitioner; Referring Provider Nurse Practitioner; Visit Provider Nurse Practitioner
DX: I11.0 Hypertensive heart disease with heart failure (principal); I50.9 Heart failure, unspecified; R94.6 Abnormal results of thyroid function studies
CPT/HCPCS: 36415; 80053; 80061; 84443; 85025

== ENCOUNTER → 2019-02-26 13:45 | Outpatient (CLI) | payer MEDICARE, SELFPAY ==
[2017-06-19 08:53] VITALS: BMI 28.1
[2019-02-04 09:29] VITALS: BMI 29.6
--- NOTE | 2019-02-26 13:52 | BD_ITS ---
STUDY: DUAL ENERGY X-RAY ABSORPTIOMETRY / DXA REASON FOR EXAM: Female, 83 years old. The patient is postmenopausal. Loss of height. TECHNIQUE: Bone Mineral Density (BMD) measurements of lumbar spine and bilateral hips were obtained. COMPARISON: Comparison is made with prior study dated August 06, 2015. FINDINGS: Lumbar Spine (L1-L4): g/cm2 (1.428) / T-score (2.2) / Z-score (4.1) Findings are suggestive of normal bone density with a low fracture risk. Left Femur Total: g/cm2 (1.086) / T-score (0.6) / Z-score (2.7) Left Femoral Neck: g/cm2 (0.954) / T-score (-0.6) / Z-score (1.6) Right Femur Total: g/cm2 (1.005) / T-score (0.0) / Z-score (2.1) Right Femoral Neck: g/cm2 (0.933) / T-score (-0.8) / Z-score (1.5) The T-Scores on the most recent prior examination were: Lumbar Spine (L1-L4): There has been improvement of bone density since the previous examination. Left Femur Total: which represents a worsening of 4.5%. Right Femur Total: which represents a worsening of 8.2%. BD/Dexa Bone Density Study IMPRESSION: The patient is considered normal as outlined below according to World [place] Organization (WHO) criteria with a low fracture risk. There has been worsening of bone density since the previous examination. Reference Information: The T-score is the number of standard deviations above or below the standard which is normal for young adults at their peak bone mineral density. The World Health Organization (WHO) interprets the T-scores as follows: Above -1 Normal bone density Between -1 and -2.5 Osteopenia Equal to / or below -2.5 Osteoporosis As a practical clinical guideline, osteopenia may be graded as follows: Mild -1 through -1.5 Moderate -1.6 through -2.0 Severe -2.1 through -2.4 The Z-score is the number of standard deviations above or below age-matched controls. A Z-score of less than -1.5 would be considered abnormal. References: 1. NIH Osteoporosis and Related Bone Diseases http://www.osteo.org 2. International Society for Clinical Densitometry http://www.iscd.org 3. National Osteoporosis Foundation http://www.nof.org Electronically Signed: Bogdan Muñiz, at 14:09 EST , Service support ,
== END ==
PROVIDERS: Family Provider Nurse Practitioner; PCP Nurse Practitioner; Referring Provider Nurse Practitioner; Visit Provider Nurse Practitioner
DX: Z78.0 Asymptomatic menopausal state (principal); M85.80 Other specified disorders of bone density and structure, unspecified site
CPT/HCPCS: 77080

== ENCOUNTER → 2019-04-29 06:54 | Outpatient (CLI) | payer MEDICARE, SELFPAY ==
[2017-06-19 08:53] VITALS: BMI 28.1
[2019-04-04 10:54] VITALS: BMI 30.7
--- NOTE | 2019-04-29 11:35 | STRESSREP_ITS ---
Stress Test Report Pharmacologic myocardial perfusion stress test. 84-year-old lady with a history of coronary artery disease, status post coronary artery bypass surgery. Stress protocol: Resting EKG demonstrates normal sinus rhythm with a rate of 70 bpm normal intervals are noted resting blood pressures 132/80 mmHg. 0.4 mg of regadenoson was infused per usual protocol followed Intravenous saline flush injection continuous market research associate was performed. The maximum heart rate attained was 86 bpm which was 62% of maximum predicted heart rate the maximum workload was 1 metabolic equivalent. At rest there were no ST or T wave changes noted to suggest abnormal flow reserve a peak infusion nonspecific ST-T wave changes were noted with no meet the criteria for abnormal flow reserve. The resting blood pressure was 132/80 with a final blood pressure was the same. Myocardial perfusion protocol. 11.3 mCi of technetium 99m sestamibi was injected at rest. 0.4 mg of regadenoson was infused per usual protocol peak infusion 32.7 mCi of technetium 99m sestamibi was injected. Stress images were obtained, stress and rest images were reconstructed and compared in the short axis vertical long horizontal long axis. Gated images were also obtained per Perfusion SPECT analysis: Review of the stress images demonstrate a small area of the distal anterior wall with mild ischemia the rest of the wilson appear to be well perfused on the stress images. The resting images demonstrate improvement confirming the ischemia in the distal anterior wall. No other areas of reversibility are noted suggest ischemia. Gated SPECT analysis: The gated ejection fraction is noted to be 81%. Conclusion: Abnormal pharmacologic myocardial perfusion stress test with evidence of distal anterior ischemia. Preserved ejection fraction
== END ==
PROVIDERS: PCP Nurse Practitioner; Referring Provider Internal Medicine Cardiovascular Disease; Visit Provider Internal Medicine Cardiovascular Disease
DX: I25.119 Atherosclerotic heart disease of native coronary artery with unspecified angina pectoris (principal); Z95.1 Presence of aortocoronary bypass graft
CPT/HCPCS: 78452; 93017; A9500; A4216; J2785

== ENCOUNTER 2019-05-20 07:52 | Day surgery (SDC) | payer MEDICARE, SELFPAY ==
[2017-06-19 08:53] VITALS: BMI 28.1
[2019-04-04 10:54] VITALS: BMI 30.7
--- NOTE | 2019-05-06 09:30 | RAD_ITS ---
HISTORY: Abnormal stress test a week ago, open heart surgery x1 year ago. ADDITIONAL HISTORY: None provided. COMPARISON: 11/09/2017 TECHNIQUE: Frontal and lateral chest radiographs. Number of images including paperwork: 2 FINDINGS: LUNGS AND PLEURA: No consolidation, mass or pleural effusion. CARDIAC SILHOUETTE: Stable. Sternal wires. MEDIASTINUM AND RICK: Unchanged aortic calcification and tortuosity. UPPER ABDOMEN: Unremarkable. SKELETON AND SOFT TISSUES: No acute findings. Degenerative changes. OTHER DEVICES AND HARDWARE: None. RAD/Chest PA and Lateral IMPRESSION: No acute cardiopulmonary abnormality. at 0029 Reported and signed by: Marianna Laughlin MD Electronically Signed: Marianna Laughlin MD at 0:29 EST Tel , Service support ,
[2019-05-06 12:15] LABS: Hematocrit 39.9 % (37-47); Hemoglobin 12.9 g/dL (12.0-15.0); Mean Corp Hgb Conc 32.3 g/dL (32-36); Mean Corpuscular Hgb 31.2 pg (27.0-32.0); Mean Corpuscular Volume 96.4 fL (81-99); Mean Platelet Vol. 10.5 fl (6.2-12.0); Platelet Count 228 K/mm3 (150-450); RBC Distribution Width CV 14.2 % (11.6-14.6); RBC Distribution Width SD 49.8 fl (35.1-43.9); Red Blood Count 4.14 M/mm3 (4.2-5.4); White Blood Count 9.1 K/mm3 (4.4-11.0)
[2019-05-06 13:25] LABS: Anion Gap 8 (5-15); BUN 24 mg/dL (7-18); Calcium,Total 9.3 mg/dL (8.5-10.1); Chloride 103 mmol/L (98-107); Creatinine, Serum 1.09 mg/dL (0.55-1.02); EST Glomerular Filtration Rate 51 mL/min (>60); Est Glom Filt Rate - Afr Amer 62 mL/min (>60); Glucose 151 mg/dL (74-106); Potassium 4.2 mmol/L (3.5-5.1); Sodium Level 138 mmol/L (136-145)
[2019-05-16 10:39] VITALS: BMI 27.0
--- NOTE | 2019-05-20 08:50 | HP.PCM_ITS ---
History and Physical Date of Admission: 05/20/19 History of Present Illness Details: GIOVANY BRANHAM, is a 84 F who presents to the office today for a heart cath for an abnormal stress test. She presented in May of 2017 with an acute inferior myocardial infarction and underwent emergency cardiac catheterization and a PCI to the right coronary artery. She presented for a follow-up visit and was noted to have evidence of restenosis of the right coronary artery, severe disease noted of the left anterior descending artery and circumflex artery. She underwent four-vessel coronary artery bypass surgery with a saphenous vein graft to the posterior descending artery, first obtuse marginal branch, and second obtuse marginal branch. A left internal mammary artery was placed to the left anterior descending artery. She also has a history of postoperative atrial fibrillation and hypertension. From a cardiac standpoint, patient is doing well. She does not have any chest discomfort/heaviness/tightness. Her exercise tolerance is stable for her age. She had been complaining of some back and shoulder discomfort and so presented to waiting room today. She says that she has had to change her pillows recently. She does not have any of the discomfort when she is exerting herself. She does not have any worsening symptoms of shortness of breath. She does not have any orthopnea. She denies PND. She does not have any symptoms of congestive heart failure. She does not have any palpitations that she is aware of. She does not have any lightheadedness or dizziness. She does not have any near-syncope or syncope. She does not have any lower extremity edema. She does not have any symptoms of claudication. Because of the dback discomfort she underwent a stress test which was abnormal, it demonstrated evidence of distal anterior ischemia with a preserved ejection fraction Intake VS see chart Allergies No Known Allergies Allergy (Verified 04/04/19 10:26) FORMERLY [facility], [facility] Medical History Atherosclerosis of coronary artery of [place] heart without angina pectoris (Chronic) Old inferior wall myocardial infarction (Chronic) Essential (primary) hypertension (Chronic) Hyperlipidemia (Chronic) Right middle lobe pulmonary nodule (Chronic) Type 2 diabetes mellitus without complications (Chronic) Anemia (Resolved) Atrial fibrillation with RVR (Resolved) Bilateral pleural effusion (Resolved) Iron deficiency anemia (Resolved) Near syncope (Resolved) New onset atrial fibrillation (Resolved) Postoperative atrial fibrillation (Resolved 09/2017) Surgical History H/O right coronary artery stent placement (Chronic 06/17/17) H/O coronary artery bypass surgery (Chronic 10/03/17) History of carpal tunnel release (Chronic) History of cataract surgery (Chronic) History of left heart catheterization (Chronic 09/25/17) History of thoracentesis (Resolved 11/09/17) Family History Mother Breast cancer Social History (Updated 04/04/19 @ 10:55 by Donald Law MD) Smoking Status: Former smoker ROS Const Const: Negative for fatigue, weakness, body ache, fever(s), headache(s), chills, frequent falls, night sweats, daytime sleepiness, difficulty sleeping, excessive sweating, weight gain, weight loss, increased appetite, poor appetite, anorexia or other Eyes Eyes: Negative for blind spots, loss of peripheral vision, transient loss of vision, blurry vision, change in vision, double vision, floaters, tunnel vision or other ENT ENT: Negative for headache(s) Cardio Chest Pain: No Resp Respiratory: Negative for SOB with activity, SOB at rest, SOB orthopnea\SOB lying down, Cough, Coughing up blood/hemoptysis, chest congestion, pain on inspiration, snoring, stridor, wheezing, crackles, paroxysmal nocturnal dyspnea or other GI GI: Negative nausea, vomiting, heartburn, constipation, belching, bloating, cramping, vomiting blood/hematemesis, bright, red blood in stools, black,tarry stools, loose stools, Difficulty Swallowing or other : Negative for hematuria, frequent nighttime urination/ nocturia, erectile dysfunction or abnormal vaginal bleeding Musc Musc: Positive for muscle aches/ myalgia Skin Skin: Negative redness, non-healing lesions, rash, unusual bruising, skin ulcer, wounds, jaundice or other Neuro Neuro: Negative for frequent falls, headache(s), weakness, blurry vision or double vision Endo Endo: Negative for fatigue or excessive sweating Allergy Allergy/Immunology: Negative for rash Cardiology Exam Const Appearance: cooperative, healthy appearing, no acute distress, well developed and well groomed Nutritional Appearance: average body habitus and well nourished Orientation: alert, awake and oriented x3 Head Head: normal to inspection, normocephalic and atraumatic Ears: hearing grossly normal bilaterally and external ears normal Nose: external nose normal, nares normal, nasal mucous membranes and turbinates normal, septum normal, no nasal discharge Face and Sinus: face symmetric Mouth: oral mucosae normal, tongue normal, oropharynx normal and moist mucous membranes Teeth and gingiva: dentition normal Throat: posterior oropharynx normal, tonsils normal and uvula midline Eyes General: appearance normal, both eyes and all related structures Eyelids: eyelids normal Conjunctivae: conjunctivae normal Pupils: PERRL, normal by confrontation and accommodation normal EOM: EOM intact bilaterally Neck Neck: normal visual inspection, trachea midline and no JVD JVD: +5 Carotids: normal carotid upstroke and bounding pulses Chest Chest inspection: normal inspection of the chest, symmetric chest movement and normal respiratory effort Auscultation: Bilateral: Clear to Auscultation Cardio Palpation: normal PMI Rate: regular rate Rhythm: regular rhythm Heart sounds: S1 normal, S2 normal and normal, physiologic split S2; negative rub, gallop or murmur GI GI: normal to inspection, soft, no hepatosplenomegaly and bowel sounds present Neuro General: alert, awake, oriented x3, gait normal, moves all extremities and no focal sensory deficit Skin Skin: no rashes or lesions noted Extremities Pulses: Normal: Right Femoral Pulse, Left Femoral Pulse, Right Dorsalis Pedis Pulse, Left Dorsalis Pedis Pulse, Right Posterior Tibial Pulse, Left Posterior Tibial Pulse, Right Radial Pulse, Left Radial Pulse Lower Extremity Edema: None: Bilateral Musculoskel Musculoskeletal: No joint tenderness Psych Psychological: normal affect Assessment & Plan 1. 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 Plan of care will be based on findings. 2. H/O coronary artery bypass surgery Z95.1 CABG x 4 RODRIGUEZ-LAD, SVG-OM1, SVG-OM2, SVG-PDA 10/03/17 3. Essential (primary) hypertension I10 Plan Controlled on current medications 4. Pure hypercholesterolemia E78.5 Plan Her lipid profile demonstrates a total cholesterol 114, LDL 56 and HDL of 35. No other changes will be made at this particular time.
--- NOTE | 2019-05-20 10:19 | CL.D_ITS ---
Patient Name: GIOVANY BRANHAM Study Date: 05/20/2019 Performing: Donald Law MD Ht: 61.02 inches 155 cm : 1935 Wt: 143.3 lbs 65 kg Age: 84 Gender: female BSA: 1.64 PROCEDURE(S) PERFORMED DC11-AO ROOT ANGIO WITH HEART CATH [id number]/COR/CABG CLINICAL PROFILE AND INDICATIONS Indications: Suspected CAD Heart Failure: None Stress/Imaging Date: 04/29/2019Stress Test with SPECT MPI: Positive Intermediate Risk CAD Presentations: Stable angina. CONCLUSIONS Severe [place] vessel disease with patent left internal mammary artery to the left anterior descending artery with slow flow, saphenous vein graft to second obtuse marginal branch patent, saphenous vein graft to the right coronary artery which is patent,. The LAD saphenous vein graft to obtuse marginal branch 1 is occluded and preserved ejection fraction is noted. In view of the fact that the ischemi a was noted to be anterior patient will be continued with medical therapy RECOMMENDATIONS Medical therapy Medical therapy DESCRIPTION OF PROCEDURE The patient arrived to the procedure lab. The risks and benefits of the procedure as well as a full d escription of our services here and current unavailability of surgical backup were fully explained to the patient and/or their significant other prior to the catheterization. The Timeout was completed, verifying the correct patient and procedure. The patient's procedural site was prepped and draped in the usual fashion. Local anesthetic was given subcutaneously to left radial region with Lidocaine 2%. Using a modified Seldinger technique, arterial access was obtained via the left radial artery, a 6Fr sheath was inserted. Left internal mammary artery graft to the LAD selective angiography was perfor med in multiple views using a 5 Fr. IM catheter. Right Coronary Artery selective angiography was then performed in multiple views using a 5 Fr. JR 4 catheter. Left Coronary Artery selective angiography was performed in multiple views using a 5 Fr. JL3.5 catheter. Left Coronary Artery selective angiography was performed in multiple views using a 5 Fr. JL4 catheter. Saphenous Vein [place] t to the OM 1 selective angiography was performed in multiple views using a 5 Fr. AR MOD catheter. Sa phenous Vein graft to the OM 2 selective angiography was performed in multiple views using a 5 Fr. AR MOD catheter. Ascending (root) aorta selective angiography was then performed in single view. Ascend ing (root) aorta selective angiography was then performed in single view. Saphenous Vein graft to the RPDA selective angiography was performed in multiple views using a 5 Fr. AR MOD catheter.The arteria l sheath was pulled and a TR Band was applied for hemostasis 10cc air inserted CORONARY ANGIOGRAPHY DOMINANCE: Right Dominant LEFT HEART ASSESSMENT Left Ventricular Ejection Fraction: by Echo 55 % LEFT MAIN: Mild calcification, No significant disease noted LEFT ANTERIOR DESCENDING ARTERY: MID LAD: is occluded CIRCUMFLEX ARTERY: Mild disease noted in the proximal portion, first obtuse marginal branch with high -grade 80% stenosis, moderate disease noted in the midsegment, second obtuse marginal branch with 80% proximal stenosis with competitive flow. RIGHT CORONARY ARTERY: PROX RCA: Previously stented vessel with total occlusion noted proximally GRAFTS: RODRIGUEZ graft to the Mid LAD is patent Saphenous Vein graft to the RPDA is patent Saphenous Vein graft to the 2nd OM is patent Saphenous Vein graft to the 1st OM is totally occluded AORTIC ROOT: Angiographically normal COMPLICATIONS No Complications PROCEDURE MEDICATIONS Fentanyl 25 mcg IV Versed 0.5 mg IV Fentanyl 25 mcg IV Oxygen: 2 L/min via nasal cannula Heparin diluted in 23cc Heparinized saline. Patient given 10cc IA of this solution. 05/20/2019 09:22:2 2 Verapamil 2.5mg, Ntg 100mcgs, 2000 units of Heparin diluted in 23cc Heparinized saline. Patient give n 10cc IA of this solution. 05/20/2019 09:22:22 SUMMARY OF HEMODYNAMIC DATA Time AIR REST ECG 08:11:24 AO 112/56 (78) SA 09:27:21 Signed By Donald Law MD On 05/20/2019 10:18:01 Donald Law MD
== END 2019-05-20 12:30 | disposition home or self-care (01) ==
LOC: CLSP 07:53
PROVIDERS: PCP Nurse Practitioner; Referring Provider Internal Medicine Cardiovascular Disease; Visit Provider Internal Medicine Cardiovascular Disease
DX: I25.709 Atherosclerosis of coronary artery bypass graft(s), unspecified, with unspecified angina pectoris (principal); I25.119 Atherosclerotic heart disease of native coronary artery with unspecified angina pectoris; I25.82 Chronic total occlusion of coronary artery; T82.855A Stenosis of coronary artery stent, initial encounter; I25.118 Atherosclerotic heart disease of native coronary artery with other forms of angina pectoris; E11.9 Type 2 diabetes mellitus without complications; I10 Essential (primary) hypertension; E78.5 Hyperlipidemia, unspecified; R94.39 Abnormal result of other cardiovascular function study; Z79.84 Long term (current) use of oral hypoglycemic drugs; Z79.82 Long term (current) use of aspirin; Z79.899 Other long term (current) drug therapy; I25.2 Old myocardial infarction; Z87.891 Personal history of nicotine dependence; Z95.1 Presence of aortocoronary bypass graft; Z95.5 Presence of coronary angioplasty implant and graft
CPT/HCPCS: 36415; 71046; 80048; 85027; 93455; 93567; 99152; 99153; Q9967; C1769; C1894

== ENCOUNTER → 2019-09-10 08:10 | Outpatient (CLI) | payer MEDICARE, SELFPAY ==
[2017-06-19 08:53] VITALS: BMI 28.1
[2019-05-16 10:39] VITALS: BMI 27.0
--- NOTE | 2019-09-10 08:12 | BI_ITS ---
MAMMOGRAPHY - BILATERAL SCREENING 3-D TOMOSYNTHESIS REASON FOR EXAM: Female, 84 years old. Routine screening PERTINENT HISTORY: BILAT SCREENING - FAM HX OF MOTHER @ AGE 88 and amp;amp; DAUGHTER @ AGE 45 - OPEN HEART SURG 09/2017. TECHNIQUE: 2-D mammograms and 3-D Tomosynthesis of the breast (s) were performed. CAD was performed. COMPARISON: 08/30/2018 FINDINGS: The breast composition is heterogeneously dense that can obscure small breast masses. Scattered benign vascular and lucent centered calcifications are seen. No dense spiculated masses or suspicious microcalcifications are identified. No architectural distortion is identified. There is no skin thickening or retraction. There has been no significant change since the prior study. BI/SCREEN MAMM (CAD) W/ROSE BILAT IMPRESSION: No mammographic signs of malignancy. Routine yearly mammograms recommended. ASSESSMENT CATEGORY: BIRADS Category 2: Benign. A letter regarding these results will be sent to the patient by the facility within 30 days. FOLLOW UP RECOMMENDATION: Yearly follow up mammogram recommended. (A) Approximately 10% of breast cancers are not detected by mammography. A normal mammogram should not delay biopsy of a clinically suspicious abnormality. Electronically Signed: Bharathi Arreoal MD at 9:28 EDT , Service support ,
== END ==
PROVIDERS: PCP Nurse Practitioner; Referring Provider Nurse Practitioner; Visit Provider Nurse Practitioner
DX: Z12.31 Encounter for screening mammogram for malignant neoplasm of breast (principal)
CPT/HCPCS: 77063; 77067

== ENCOUNTER → 2020-09-10 10:41 | Outpatient (CLI) | payer MEDICARE, SELFPAY ==
[2017-06-19 08:53] VITALS: BMI 28.1
[2020-01-03 13:07] VITALS: BMI 29.0
[2020-07-27 09:59] VITALS: BMI 28.1; BMI 29.0
--- NOTE | 2020-09-10 10:46 | BI_ITS ---
MAMMOGRAPHY - BILATERAL SCREENING 3-D TOMOSYNTHESIS REASON FOR EXAM: Female, 85 years old. SCREENING - PERTINENT HISTORY: No significant family history. TECHNIQUE: 2-D mammograms and 3-D Tomosynthesis of the breast (s) were performed. CAD was performed. COMPARISON: 09/10/2019 FINDINGS: The breast composition is of heterogeneous fibroglandular tissue Scattered benign calcifications are seen. No dense spiculated masses or suspicious microcalcifications are identified. No architectural distortion is identified. There is no skin thickening or nipple retraction. Benign looking lymph nodes noted in the axillary areas some of them are intrapulmonary in location There has been no significant change since the prior study since 09/10/2019 BI/SCRN MAMM (CAD)W/ROSE BILAT IMPRESSION: No mammographic signs of malignancy. Routine yearly mammograms recommended. BIRADS 2. FOLLOW UP RECOMMENDATION: Yearly follow up mammogram recommended. (A) Approximately 10% of breast cancers are not detected by mammography. A normal mammogram should not delay biopsy of a clinically suspicious abnormality. Electronically Signed: She Casanova, at 12:11 EDT Tel , Service support ,
== END ==
PROVIDERS: PCP Nurse Practitioner; Referring Provider Nurse Practitioner; Visit Provider Nurse Practitioner
DX: Z12.31 Encounter for screening mammogram for malignant neoplasm of breast (principal)
CPT/HCPCS: 77063; 77067

== ENCOUNTER → 2020-10-01 11:13 | Outpatient (CLI) | payer MEDICARE, SELFPAY ==
[2020-07-27 09:59] VITALS: BMI 28.1
[2020-10-01 09:52] VITALS: BMI 29.0
[2020-10-01 12:57] LABS: AST(SGOT) 17 U/L (15-37); Alanine Aminotransfer ALT/SGPT 23 U/L (13-56); Albumin, Serum 3.6 g/dL (3.2-5.0); Alkaline Phosphatase 119 U/L (45-117); Bilirubin, Direct 0.15 mg/dL (0.00-0.30); Cholesterol 115 mg/dL (200); Globulin 4.1 g/dL (2.2-4.2); High Density Lipoprotein 45 mg/dL; Protein, Total 7.7 g/dL (6.4-8.2); Triglycerides 111 mg/dL; Very Low Density Lipoprotein 22 mg/dL (5-40)
== END ==
PROVIDERS: PCP Nurse Practitioner; Referring Provider Internal Medicine Cardiovascular Disease; Visit Provider Internal Medicine Cardiovascular Disease
DX: E78.5 Hyperlipidemia, unspecified (principal)
CPT/HCPCS: 36415; 80061; 80076

== ENCOUNTER 2020-12-17 10:00 | Outpatient (RCR) | payer MEDICARE, SELFPAY ==
[2020-07-27 09:59] VITALS: BMI 28.1
[2020-10-01 09:52] VITALS: BMI 29.0
--- NOTE | 2020-10-20 14:50 | HP.PTEVAL_ITS ---
Patient's Visit Information GIOVANY BRANHAM is a 85 year old F referred to Physical Therapy by Duong Suero PA-C with a diagnosis of L ankle tendonitis. Date of Evaluation: 10/20/20 Physical Therapist: Ted Del Rosario, DPT, OCS, CSCS - Visit Plan Frequency: 2-3x /Week Duration: 4-6 Weeks Plan: 2-3x/week fro 4 weeks for. 1. US non thermal L PTT and Cross friction massage. 2. stretch and ecc strength L PTT, Ankle ROM L. 3. General ankle strength adn propriaoception. 4. I put meidal heel wedge in L shoe today, monitor tolerance and need for further arch support/custom orthtoics.(pt did not want to pay for them today. - Subjective L ankle hurts. It just starting to hurt for no reason about month ago. Pain is inside of ankle 4-5/10 most of time. Worse with walking. Slight pain at rest. Using cane to get around because of this. It helps with stability. Sleep is not interrupted. Not employed. Basic ADLS are getting done slowly when on feet and painful. Hobbies : none, sits on couch. No regular exercises. [facility] sent for PT, no treatment, had x rays which were a little OA. - Pain L medial ankle Pain Intensity (Out of 10): 4 Pain Intensity Range: 1, 5 - Objective L antalgia with cane in R in gait. Slow and more painful as she went. Trasnfers I. Only 4 steps with rail at home into mobile home. B arches vickie apsed L >R adn into pronation B and hindfoot valgus on L. AROM L ankle -5 DF to 40 PF, 10 inv and 15 ev. R ankle 0 DF, 50 PF, 22 inv adn 18 eversion. Tender to palpation over PTT L above malleoli and slightly on the insertion. strength L Inv 3, ev 3+, DF 4, PF 3+. R ankle strength 4-. knee adn hip AROM and strength WFL. - talar tilt test L. - Goals Goal 1:: Walk withotu pain in medial L ankle community Goal Time Frame: 4-6 Weeks Goal 2:: Pt feel 75% di rin over all ankle movements and mobility with pain no greater than 1/10 Goal Time Frame: 4-6 Weeks Goal 3:: I aprop HEp to minimize future probems. Goal Time Frame: 4-6 Weeks - Rehabilitation Potential Physical Therapy Diagnosis: L ankle pain tendonitis PTT casuing limp and mobility deficits. Rehabilitation Potential: Fair - Anticipated Interventions Patient/Client Instruction: Educate patient on: Condition, Plan of Care For the Purpose of:: To decrease pain, To increase ROM, To improve muscle performance and motor function Therapeutic Exercise to Include: Strength training, Balance training, Flexibilty training, Gait and locomotor training, Passive ROM, Active ROM For the Purpose of:: To decrease pain, To increase ROM, To improve muscle performance and motor function, To increase tolerance to activity/condition/position, To improve gait and locomotor functions Manual Therapy Techniques to Include: Mobilization, Passive ROM, Soft tissue mobilization For the Purpose of:: To decrease pain, To increase ROM, To improve muscle performance and motor function Thermo therapy (hot pack): Yes Ultrasound (thermal/non thermal): Yes For the Purpose of:: To decrease pain, To decrease swelling/inflammation Thank you for the opportunity to evaluate your patient. For Medicare and Medicare HMO plans, please review the plan of care and approve it. It will need to be FAXED BACK to us at [phone] for Medicare purposes. For Medicare only, by signing this I certify the plan of care. Please let me know if there are questions or concerns regarding this plan of care. Physician Signature: Date:
--- NOTE | 2020-12-03 11:13 | HP.PTREVAL ---
Duong Suero PA-C, It has been my pleasure to treat GIOVANY BRANHAM over the last 7 visits for L ankle tendonitis. Please see the progress note below for an update on the physical therapy plan of care! Subjective: Pt doing somewhat better. Limited visits have not helped. Still painful medial L ankle. Medial heel wedge has helped a little bit and it is still in. [facility] for ankle regularly and wanting to progress to full LE program in gym but does not know how. Using cane to get around safely and without falls prior to today. Objective/Function: shoe size 6. +7 LEFS. AROM 0 DF, 50 PF, 22 inv and 10 eversion, has some pain medially L ankle with resisted inversion. Feels like shoe insert from initial day was helpful and still has it in. Tender of PTT L. Recommended [facility] orthoitcs for patient and picture given, she will let us know if she wants us to get them for her. Walks with cane R UE, fell coming back to treatment room catching R toe and landing on L wrist and knee but was OK and able to move these joints and walk without pain, reaaching for objects with L UE easily. Plan Plan: Conitnue 2x/week for 3 weeks for. 1. Teach gym program for LE, postural strength to help with safety and overall mobility. Pt to get [facility]asyli orthoitc and bring it in if needs instruct. Pt to continue ankle strength adn stretch via HEP. May continue US in therapy as helpful. Goals appropriate and fair prognosis. Balance/Gait/Functional tests - Balance/Special Test Scores Lower Extremity Functional Score: 43 Goals Goal 1:: Walk withotu pain in medial L ankle community Goal Time Frame: 4-6 Weeks Goal Progress: Progressing Goal 2:: Pt feel 75% di rin over all ankle movements and mobility with pain no greater than 1/10 Goal Time Frame: 4-6 Weeks Goal Progress: 20%, 3/10, approp Goal 3:: I aprop HEp to minimize future probems. Goal Time Frame: 4-6 Weeks Goal Progress: Goal Met Goal 4:: I in gym ex to minimize future mobility and pain problems. Goal Time Frame: 2-4 Weeks Goal Progress: NEW GOAL Anticipated Interventions Patient/Client Instruction: Educate patient on: Condition, Plan of Care For the Purpose of:: To decrease pain, To increase ROM, To improve muscle performance and motor function Therapeutic Exercise to Include: Strength training, Balance training, Flexibilty training, Gait and locomotor training, Passive ROM, Active ROM For the Purpose of:: To decrease pain, To increase ROM, To improve muscle performance and motor function, To increase tolerance to activity/condition/position, To improve gait and locomotor functions Manual Therapy Techniques to Include: Mobilization, Passive ROM, Soft tissue mobilization For the Purpose of:: To decrease pain, To increase ROM, To improve muscle performance and motor function Thermo therapy (hot pack): Yes Ultrasound (thermal/non thermal): Yes For the Purpose of:: To decrease pain, To decrease swelling/inflammation Please do not hesitate to contact me at [phone] by phone or if you have questions or concerns regarding this new plan of care! Sincerely, Ted Del Rosario, DPT, OCS, CSCS
--- NOTE | 2020-12-17 10:19 | HP.PTDCSUM_ITS ---
It has been my pleasure to treat GIOVANY BRANHAM referred by SAMI Marlow, with the diagnosis of L ankle tendonitis for a total of 11 visit(s). Discharge Date: 12/17/20 Please see the following information for a summary of their discharge status. Subjective: L ankle is fine, no pain. Has exercises at home. Using a cane to get around as support. No f/u with doctor for ankle. Not doing much work at home but that is normal for her. Life is normal. L wrist is achy.(casted). Feels ready to start ex in gym on her own. L medial ankle Pain Intensity (Out of 10): 0 % Improvement: 80 Objective/Function: FGA 21. Walking well today. Using cane safely. Happy and without pain, good L ankle ROM and 4-/5 strength. Goal 1:: Walk withotu pain in medial L ankle community Goal Progress: Goal Met Goal 2:: Pt feel 75% di rin over all ankle movements and mobility with pain no greater than 1/10 Goal Progress: Goal Met Goal 3:: I aprop HEp to minimize future probems. Goal Progress: Goal Met Goal 4:: I in gym ex to minimize future mobility and pain problems. Goal Progress: Goal Met Plan: d/c to [facility] Discharge Comments: To continue via [employer] membership. If there are questions or concerns regarding this patient's physical therapy, please feel free to call me at [phone]. Thank you for the referral of this patient. Sincerely, Ted Del Rosario, DPT, OCS, CSCS Balance/Gait/Functional tests - Balance/Special Test Scores Functional Gait Assessment Score: 21 % Disability: 30.0000 Lower Extremity Functional Score: 43
== END 2020-12-17 13:22 | disposition home or self-care (01) ==
LOC: PT 10:00
PROVIDERS: PCP Nurse Practitioner; Referring Provider Physician Assistant Surgical; Visit Provider Physician Assistant Surgical
DX: M25.572 Pain in left ankle and joints of left foot (principal); M76.72 Peroneal tendinitis, left leg
CPT/HCPCS: 97035; 97110; 97161; 97164; 97530

== ENCOUNTER 2021-07-01 09:28 | Outpatient (CLI) | payer MEDICARE, SELFPAY ==
[2020-07-27 09:59] VITALS: BMI 28.1
[2021-07-01 10:47] LABS: AST(SGOT) 13 U/L (15-37); Alanine Aminotransfer ALT/SGPT 23 U/L (13-56); Albumin, Serum 3.6 g/dL (3.2-5.0); Alkaline Phosphatase 99 U/L (45-117); Bilirubin, Direct 0.19 mg/dL (0.00-0.30); Cholesterol 102 mg/dL (200); Globulin 3.4 g/dL (2.2-4.2); High Density Lipoprotein 38 mg/dL; Triglycerides 110 mg/dL; Very Low Density Lipoprotein 22 mg/dL (5-40)
== END 2021-07-01 23:59 | disposition home or self-care (01) ==
LOC: LAB 09:29
PROVIDERS: PCP Nurse Practitioner; Referring Provider Internal Medicine Cardiovascular Disease; Visit Provider Internal Medicine Cardiovascular Disease
DX: E78.5 Hyperlipidemia, unspecified (principal); E78.00 Pure hypercholesterolemia, unspecified
CPT/HCPCS: 36415; 80061; 80076

== ENCOUNTER → 2021-10-14 | Outpatient (CLI) | payer MEDICARE, SELFPAY ==
[2020-07-27 09:59] VITALS: BMI 28.1
--- NOTE | 2021-10-14 12:39 | BI_ITS ---
MAMMOGRAPHY - BILATERAL SCREENING REASON FOR EXAM: Female, 86 years old. Routine annual screening examination. PERTINENT HISTORY: Daughter with breast cancer. Mother with breast cancer. TECHNIQUE: Digital bilateral breast rose (3D mammographic acquisition) in the CC and MLO projections. 2-D mediolateral oblique (MLO) and craniocaudad (CC) views of both breasts were obtained. CAD: Full Field Digital Mammography with Computer Added Detection was performed. COMPARISON: Comparison is made with prior study dated 09/10/2020 and 09/10/2019. FINDINGS: Breast Composition: The breasts are heterogeneously dense, which may obscure small masses. There are no dominant masses or suspicious calcifications. Stable bilateral secretory calcification. Stable benign-appearing bilateral axillary lymph nodes. No other significant abnormalities are identified. There has been no significant change since the prior study. BI/SCRN MAMM (CAD)W/ROSE BILAT IMPRESSION: Stable bilateral screening mammogram. Yearly follow-up mammogram recommended. (A) ASSESSMENT CATEGORY: BIRADS Category 2: Benign. A letter regarding these results will be sent to the patient by the facility within 30 days. Approximately 10% of breast cancers are not detected by mammography. A normal mammogram should not delay biopsy of a clinically suspicious abnormality. [id number] Electronically Signed: Bogdan Muñiz MD at 14:40 EDT ,
--- NOTE | 2021-10-14 12:57 | BD_ITS ---
STUDY: DUAL ENERGY X-RAY ABSORPTIOMETRY / DXA REASON FOR EXAM: Female, 86 years old. M85.89. Patient is postmenopausal. TECHNIQUE: Bone Mineral Density (BMD) measurements of lumbar spine and bilateral hips were obtained. COMPARISON: Comparison is made with prior study dated 02/26/2019. FINDINGS: Lumbar Spine (L1-L4): g/cm2 (1.215) / T-score (2.1) / Z-score (4.8) Findings are suggestive of normal bone density with a low fracture risk. Left Femur Total: g/cm2 (0.958) / T-score (0.1) / Z-score (2.4) Left Femoral Neck: g/cm2 (0.4) / T-score (-0.4) / Z-score (2.1) Right Femur Total: g/cm2 (0.899) / T-score (-0.4) / Z-score (2.0) Right Femoral Neck: g/cm2 (0.777) / T-score (-0.7) / Z-score (1.9) The T-Scores on the most recent prior examination were: Lumbar Spine (L1-L4): There has been worsening of bone density since the previous examination. Left Femur Total: which represents a worsening of 5.8%. Right Femur Total: which represents a worsening of 4.3%. BD/Dexa Bone Density Study IMPRESSION: The patient is considered normal as outlined below according to World [place] Organization (WHO) criteria with a low fracture risk. There has been worsening of bone density since the previous examination. Reference Information: The T-score is the number of standard deviations above or below the standard which is normal for young adults at their peak bone mineral density. The World Health Organization (WHO) interprets the T-scores as follows: Above -1 Normal bone density Between -1 and -2.5 Osteopenia Equal to / or below -2.5 Osteoporosis As a practical clinical guideline, osteopenia may be graded as follows: Mild -1 through -1.5 Moderate -1.6 through -2.0 Severe -2.1 through -2.4 The Z-score is the number of standard deviations above or below age-matched controls. A Z-score of less than -1.5 would be considered abnormal. References: 1. NIH Osteoporosis and Related Bone Diseases www osteo.org 2. International Society for Clinical Densitometry www iscd.org 3. National Osteoporosis Foundation www nof.org Electronically Signed: Bogdan Muñiz MD at 12:31 EDT ,
== END | disposition home or self-care (01) ==
PROVIDERS: PCP Nurse Practitioner; Visit Provider Nurse Practitioner Family
DX: Z12.31 Encounter for screening mammogram for malignant neoplasm of breast (principal); M85.80 Other specified disorders of bone density and structure, unspecified site; Z78.0 Asymptomatic menopausal state; Z80.3 Family history of malignant neoplasm of breast
CPT/HCPCS: 77063; 77067; 77080

== ENCOUNTER → 2022-10-17 | Outpatient (CLI) | payer MEDICARE, SELFPAY ==
[2020-07-27 09:59] VITALS: BMI 28.1
--- NOTE | 2022-10-17 11:56 | BI_ITS ---
MAMMOGRAPHY - BILATERAL SCREENING REASON FOR EXAM: Female, 87 years old. Routine annual screening examination. PERTINENT HISTORY: Daughter with breast cancer. Mother with breast cancer. TECHNIQUE: Digital bilateral breast rose (3D mammographic acquisition) in the CC and MLO projections. 2-D mediolateral oblique (MLO) and craniocaudad (CC) views of both breasts were obtained. CAD: Full Field Digital Mammography with Computer Added Detection was performed. COMPARISON: Comparison is made with prior study dated September 10, 2020 and October 14, 2021. FINDINGS: Breast Composition: The breasts are heterogeneously dense, which may obscure small masses. There are no dominant masses or suspicious calcifications. Stable scattered bilateral secretory calcifications. Stable small benign appearing bilateral axillary lymph nodes. No other significant abnormalities are identified. There has been no significant change since the prior study. BI/SCRN MAMM (CAD)W/ROSE BILAT IMPRESSION: Stable bilateral screening mammogram. Yearly follow-up mammogram recommended. (A) ASSESSMENT CATEGORY: BIRADS Category 2: Benign. A letter regarding these results will be sent to the patient by the facility within 30 days. Approximately 10% of breast cancers are not detected by mammography. A normal mammogram should not delay biopsy of a clinically suspicious abnormality. [id number] Electronically Signed: Bogdan Muñiz MD at 14:30 EDT ,
== END | disposition home or self-care (01) ==
LOC: OPBI 11:56
PROVIDERS: PCP Nurse Practitioner Family; Referring Provider Nurse Practitioner Family; Visit Provider Nurse Practitioner Family
DX: Z12.31 Encounter for screening mammogram for malignant neoplasm of breast (principal)
CPT/HCPCS: 77063; 77067

== ENCOUNTER → 2023-01-13 | Outpatient (CLI) | payer MEDICARE, SELFPAY ==
[2020-07-27 09:59] VITALS: BMI 28.1
[2023-01-13 10:26] LABS: Potassium 4.8 mmol/L (3.5-5.1)
== END | disposition home or self-care (01) ==
LOC: LABSPEC 09:50
PROVIDERS: PCP Nurse Practitioner Family; Referring Provider Nurse Practitioner Family; Visit Provider Nurse Practitioner Family
DX: E87.5 Hyperkalemia (principal)
CPT/HCPCS: 84132

== ENCOUNTER → 2024-01-31 | Outpatient (CLI) | payer MEDICARE, SELFPAY ==
[2020-07-27 09:59] VITALS: BMI 28.1
== END | disposition home or self-care (01) ==
PROVIDERS: PCP Nurse Practitioner Family; Referring Provider Nurse Practitioner Family; Visit Provider Nurse Practitioner Family
DX: Z12.31 Encounter for screening mammogram for malignant neoplasm of breast (principal); Z78.0 Asymptomatic menopausal state
CPT/HCPCS: 77063; 77067; 77080

== ENCOUNTER 2025-01-23 09:12 | Emergency (ER) | payer MEDICARE, SELFPAY ==
[2020-07-27 09:59] VITALS: BMI 28.1
[2025-01-23] VITALS (8 sets, daily range): BP systolic 124–173; BP diastolic 69–84; PULSE 85–104; RESP 14–18; TEMP 36.6–37.1; O2SAT 98–100; BMI 26.9
--- NOTE | 2025-01-23 09:29 | RAD_ITS ---
PROCEDURE: CHEST PA AND LATERAL 01/23/2025 REASON FOR EXAM: SOB TECHNIQUE: Procedure Code: RADCXR Modality: DX Procedure: CHEST PA AND LATERAL COMPARISON: May 06, 2019 FINDINGS: Hardware: EKG leads Heart: Mildly enlarged status post median sternotomy. Mediastinum: There are atherosclerotic calcifications of the thoracic aorta. Lungs: Subsegmental atelectasis left lung base. No consolidation or mass. No pleural effusion or pneumothorax. Bones: Degenerative changes are identified within the thoracic spine. RAD/Chest PA and Lateral IMPRESSION: Subsegmental atelectasis left lung base. Reading Location: [id number]
--- NOTE | 2025-01-23 09:30 | EDS_ITS ---
HPI History of Present Illness Chief Complaint: Shortness of Breath Narrative Narrative: Patient is a 9-year-old female with past medical history of CAD status post CABG, atrial fibrillation, iron deficiency anemia, type 2 diabetes, hyperlipidemia who presented to the emergency department the chief complaint of shortness of breath and cough. Per for member bedside he noted that she was having some difficulty breathing last night and this morning therefore they called EMS to have her brought here for further evaluation management. Patient notes that her is also have been sick in the past recently. States that she has lost her voice this morning as well. Patient states that she smoked about 50 years ago. States that she does not have any inhalers at home. Per EMS she had wheezing noted therefore a DuoNeb was given and route. 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) Essential (primary) hypertension Right middle lobe pulmonary nodule Bilateral pleural effusion Iron deficiency anemia Atherosclerosis of coronary artery of [place] heart without angina pectoris Near syncope Anemia Atrial fibrillation with RVR Type 2 diabetes mellitus without complications Hyperlipidemia Home Medications ?Medication ?Instructions ?Recorded ?Last Taken ?Type allopurinol 300 mg tablet 300 mg PO DAILY PRN GOUT 01/22/25 History aspirin 81 mg tablet,delayed 81 mg PO DAILY@0800 blood thinner 06/20/17 01/22/25 Rx release atorvastatin 40 mg tablet 40 mg PO QHS cholesterol #30 tabs 06/20/17 01/22/25 Rx lisinopril 10 mg tablet 10 mg PO DAILY blood pressur e #90 06/11/20 01/22/25 Rx tabs isosorbide mononitrate 30 mg 30 mg PO DAILY heart 02/1801/22/25 History tablet,extended release 24 hr metoprolol succinate 25 mg 25 mg PO QDAY heart 03/06/ 4 01/22/25 History tablet,extended release 24 hr doxycycline hyclate 100 mg capsule 100 mg PO BID 5 day s #10 caps 01/23/25 Unknown Rx dulaglutide 1.5 mg/0.5 mL 1.5 mg subcut QWEEK blood nunez gar 01/23/25 01/20/25 History subcutaneous pen injector (Trulicity) Allergy/AdvReac Type Severity Reaction Status Date / Time No Known Allergies Allergy Verified 01/23/25 09:14 Family History Mother Breast cancer Surgical History History of thoracentesis (11/09/17) H/O coronary artery bypass surgery (10/03/17) History of left heart catheterization (05/20/19) History of carpal tunnel release History of cataract surgery H/O right coronary artery stent placement (06/17/17) Social History Smoking Status: Former smoker ROS ROS ED ROS Narrative Constitutional: Denies fevers, chills, headaches Eyes: Denies change in vision double vision blurry vision Cardiovascular: Denies chest pain Respiratory: Complains of cough and shortness of breath as noted above Abdomen: Denies abdominal pain nausea vomit diarrhea : Denies urinary symptoms Neurological: Denies numbness, wheeze, tingling Musculoskeletal: Denies back pain Skin: Denies rashes or lesions EXAM Physical Exam Narrative Exam Narrative: General: Patient is lying in bed rest comfortably did not appear to be in acute distress Head: Atraumatic, normocephalic Eyes: PERRL bilaterally, EOMI bilaterally, no conjunctival injection noted Neck: Soft, supple, trachea midline Cardiovascular: Regular rate and rhythm Respiratory: Clear to auscultation bilaterally no rales rhonchi or wheeze noted no stridor noted Abdomen: Soft, nondistended, no tenderness palpation Extremities: +5/5 strength noted in the bilateral lower extremities Neurological: Patient follow commands knew that she was at [facility] year is 2024 Skin: Warm, dry, tact no rashes or lesions noted Const Vital Signs: 01/23/25 09:16 01/23/25 09:20 01/23/25 09:45 Temperature 97.8 F Temperature Source Oral Pulse Rate 97 Respiratory Rate 17 Respiratory Effort Short of Breath Labored Respiratory Depth Normal Blood Pressure 173/83 H Blood Pressure Mean 113 Pulse Ox 98 Oxygen Delivery Method Room Air Room Air Room Air 01/23/25 10:00 01/23/25 11:11 01/23/25 12:00 Temperature 98.7 F 98.7 F 98.1 F Temperature Source Oral Oral Oral Pulse Rate 104 H 99 91 Respiratory Rate 17 18 18 Respiratory Effort Respiratory Depth Blood Pressure 148/84 H 152/74 H 144/73 H Blood Pressure Mean 105 100 96 Pulse Ox 98 100 98 Oxygen Delivery Method Room Air Room Air Room Air 01/23/25 13:00 Temperature 98.1 F Temperature Source Oral Pulse Rate 86 Respiratory Rate 18 Respiratory Effort Respiratory Depth Blood Pressure 143/74 H Blood Pressure Mean 97 Pulse Ox 98 Oxygen Delivery Method Room Air MDM MDM MDM Narrative Medical decision making narrative: Patient is 89-year-old female who presents to the emergency department the chief complaint of cough and shortness of breath. On the differential diagnose includes but not limited to laryngitis, upper respiratory infection secondary viral etiology, pneumonia, pneumothorax, CHF. Once workup is obtained reviewed she will be reevaluated. Patient CBC reviewed and showed no evidence of leukocytosis white blood count 8.4, hemoglobin 14.1, plate count 199. Sodium normal 140, potassium 3.9, creatinine was normal at 0.98. Patient's troponin was 21 with a delta troponin of 19. Patient EKG was reviewed which showed atrial fibrillation with a rate of 105 bpm, which she has a history of in her chart. Patient's chest x-ray reviewed by myself by radiology which showed subsegmental atelectasis at the left lung base. Patient ambulated well here in the emergency department and has no chest pain. She had no tachycardia no hypoxia during ambulation and feels well. On reevaluation the patient on the monitor looked like she was in sinus rhythm when I inquired about anticoagulation and she states that she is on a blood thinner medication. Family numbers at bedside could not tell me why she is on anticoagulation for her atrial fibrillation diagnosis. Repeat EKG was performed and showed sinus rhythm with PACs noted with a rate of 84 beats per minutes. Patient was advised to follow-up with her primary care physician outpatient setting take antibiotics as prescribed and use incentive spirometry as prescribed as well. She was advised to return with worsening symptoms or any concerns. She is agreeable to plan all question concerns answered she is discharged home in stable condition. Lab Data Labs: Laboratory Results - last 24 hr 01/23/25 01/23/25 09:41 11:45 WBC 8.4 RBC 4.68 Hgb 14.1 Hct 43.2 MCV 92.3 MCH 30.1 MCHC 32.6 RDW Std Deviation 46.6 H RDW Coeff of Damian 13.9 Plt Count 199 MPV 9.8 Immature Gran % (Auto) 0.500 Neut % (Auto) 71.5 H Lymph % (Auto) 16.3 L Benzie % (Auto) 9.9 Eos % (Auto) 1.3 Baso % (Auto) 0.5 Absolute Neuts (auto) 6.0 Absolute Lymphs (auto) 1.36 Nucleated RBC % 0 Sodium 140 Potassium 3.9 Chloride 104 Carbon Dioxide 23.4 Anion Gap 13 BUN 22 H Creatinine 0.98 Estim Creat Clear Calc 32.86 L Est GFR (MDRD) Non-Af 56 L BUN/Creatinine Ratio 22.4 H Glucose 210 H Calcium 9.7 Troponin T High Sens 21 H Troponin T Hi Sens 2 Hr 19 H NT pro BNP II 780 Radiography Diagnostic Testing: Clinical Impression(s) from Imaging Studies Chest X-Ray 01/23/25 09:29 IMPRESSION: Subsegmental atelectasis left lung base. Reading Location: [facility] Discharge Plan Triage Chief Complaint: Shortness of Breath ED Provider: Victoriano Eldridge Dx/Rx/DC Orders Clinical Impression: Cough, Shortness of breath, Atelectasis of left lung, Paroxysmal atrial fibrillation Prescriptions: New doxycycline hyclate 100 mg capsule 100 mg PO BID 5 Days Qty: 10 0RF No Action isosorbide mononitrate 30 mg tablet extended release 24 hr 30 mg PO DAILY Patient Comments: family believes shes taking but not 100% allopurinol 300 MG tablet 300 mg PO DAILY PRN (Reason: GOUT) atorvastatin 40 MG tablet 40 mg PO QHS Qty: 30 6RF aspirin 81 MG tablet 81 mg PO DAILY@0800 0RF Trulicity 1.5 mg/0.5 mL pen injector 1.5 mg subcut QWEEK lisinopril 10 mg tablet 10 mg PO DAILY Qty: 90 3RF metoprolol succinate 25 mg tablet extended release 24 hr 25 mg PO QDAY Primary Care Provider: Alejandra Del Rosario Referrals: Alejandra Del Rosario, [facility] [Primary Care Provider, Internal Medicine] Activity Restrictions/Additional Instructions: Take antibiotics as prescribed. Use incentive spirometer. Follow-up with your doctor in the outpatient setting and return with worsening symptoms or other concerns Print Language: [place] Disposition Disposition: Home, Self Care
[2025-01-23] MEDS: 0.9% Normal Saline (1000mL) 1,000 ML 999 ML IV (09:41)
[2025-01-23 09:49] LABS: Hematocrit 43.2 % (37-47); Hemoglobin 14.1 g/dL (12.0-15.0); Immature Granulocytes Count 0.040 X10^3/uL (0.0-0.0); Mean Corp Hgb Conc 32.6 g/dL (32-36); Mean Corpuscular Volume 92.3 fL (81-99); Mean Platelet Vol. 9.8 fl (6.2-12.0); NRBC Flagged by Analyzer 0 % (0-5); Platelet Count 199 K/mm3 (150-450); RBC Distribution Width CV 13.9 % (11.6-14.6); RBC Distribution Width SD 46.6 fl (35.1-43.9); Red Blood Count 4.68 M/mm3 (4.2-5.4); White Blood Count 8.4 K/mm3 (4.4-11.0)
[2025-01-23 10:22] LABS: Anion Gap 13 (5-15); BUN 22 mg/dL (4-19); BUN/Creat Ratio 22.4 RATIO (10-20); Calcium,Total 9.7 mg/dL (7.6-11.0); Carbon Dioxide 23.4 mmol/L (21.0-32.0); Chloride 104 mmol/L (98-108); Estimated Creatinine Clearance 32.86 ml/min (50-250); Glucose 210 mg/dL (70-99); Potassium 3.9 mmol/L (3.3-5.1); Pro- Brain NATRIURETIC PEPTIDE 780 pg/mL (<=1800); Troponin T High Sensitivity 21 ng/L (<=14)
[2025-01-23 13:01] LABS: Troponin T High Sens 2 HR 19 ng/L (<=14)
== END 2025-01-23 14:03 | disposition home or self-care (01) ==
PROVIDERS: Emergency Provider Emergency Medicine; PCP Nurse Practitioner Family; Visit Provider Emergency Medicine
DX: J98.11 Atelectasis (principal); I48.0 Paroxysmal atrial fibrillation; E11.69 Type 2 diabetes mellitus with other specified complication; E78.5 Hyperlipidemia, unspecified; I10 Essential (primary) hypertension; I25.10 Atherosclerotic heart disease of native coronary artery without angina pectoris; I25.2 Old myocardial infarction; Z95.5 Presence of coronary angioplasty implant and graft; Z79.82 Long term (current) use of aspirin; Z79.85 Long-term (current) use of injectable non-insulin antidiabetic drugs; Z79.899 Other long term (current) drug therapy; Z87.891 Personal history of nicotine dependence
CPT/HCPCS: 71046; 80048; 83880; 84484; 85025; 93005; 96360; 96361; 99285; A4216